=== PATIENT | female | born 1955 | race Caucasian/White ===

== ENCOUNTER 2018-10-04 15:12 | Outpatient (REF) | payer MEDICARE, SELFPAY ==
[2018-10-04 19:28] LABS: Absolute Basophil Count 0.01 k/cumm (0.0-0.2); Absolute Eosinophil Count 0.14 k/cumm (0.0-0.7); Absolute Lymphocyte Count 1.47 k/cumm (1.2-3.4); Absolute Monocyte Count 0.52 k/cumm (0.11-0.7); Absolute Neutrophil Count 3.76 k/cumm (1.2-6.7); Basophils % 0.2; Eosinophils % 2.4; HCT 37.1 % (36.0-46.0); HGB 11.5 g/dL (12.0-15.5); Lymphocytes % 24.9; Mean Corpuscular Volume 83.7 fL (80-95); Monocytes % 8.8; Neutrophils % 63.7; Platelet Count 324 x1000/uL (130-400); RBC 4.43 m/cumm (4.00-5.20)
[2018-10-04 19:36] LABS: ALT 80 U/L (12-78); AST 56 U/L (15-37); Albumin 3.7 g/dL (3.4-5.0); Alkaline Phosphatase 119 U/L (46-116); Anion Gap 11.2 mmol/L (3-11); BUN 12 mg/dL (7-18); Bilirubin, Total 0.3 mg/dL (0.2-1.0); CO2 25.8 mmol/L (21.0-32.0); Calcium 8.7 mg/dL (8.5-10.1); Chloride 104 mmol/L (98-107); Glucose 101 mg/dL (70-100); Potassium 4.2 mmol/L (3.5-5.1); Sodium 141 mmol/L (136-145); Total Protein 7.2 g/dL (6.4-8.2)
== END 2018-10-04 15:32 ==
LOC: NCHCN 15:12
PROVIDERS: PCP Physician Assistant Medical; Visit Provider Physician Assistant Medical
DX: R06.00 Dyspnea, unspecified (principal)
CPT/HCPCS: 80053; 83036; 85025

== ENCOUNTER 2018-10-09 00:20 | Outpatient (CLI) | payer MEDICARE, MEDICAID, SELFPAY ==
--- NOTE | 2018-10-09 09:30 | MERGEMPI_ITS ---
*[facility]* *[facility]* [address] [place] [address] Myocardial Perfusion Imaging - SPECT Mega protocol Date of study: 10/09/2018 (Report amended ) *PATIENT PRESENTATION* Height: 162.6cm (64in) Blood Pressure: Weight: 112.7kg (248lb) BSA: 2.32m^2 Referring physician: Marek Cameron Ordering physician: Natty Wilson Impressions: - No evidence for myocardial ischemia. - Low risk of cardiac events. Summary: 1. Myocardial perfusion imaging: There is a moderate sized, mildly intense, fixed defect involving the anterolateral wall(s). This suggests artifact due to breast attenuation rather than myocardial infarction, especially in light of normal wall motion. 2. The calculated left ventricular ejection fraction after stress: 53%. LV global systolic function is normal. No left ventricular regional motion abnormality. 3. Stress ECG conclusions: The stress ECG is negative to less than 85% MPHR. The stress ECG is indeterminate due to Inadequate heart rate. 4. Imaging information: gated. Image quality reduced due to breast attenuation and subdiaphragmatic activity. Attenuation correction used. Recommendations: Medical management is recommended. Indication: R06.02, Appropriate Use Criteria: A (Appropriate). History: REASON FOR TESTING: SHORT OF BREATH WITH ACTIVITY FOR APPROX. 1 -2 MONTHS. PMH: OSTEOARTHRITIS WITH TKR, HYPERTENSION,GERD, HIATAL HERNIA, SLEEP APNEA WITH CPAP USE, FAMILY HX: BROTHER- OF [place] AT AGE 48, MOTHER-[place] AT AGE 55 WITH HYPERTENSION, AND HYPERLIPIDEMIA. SMOKING: NEVER SMOKER. EXCERCISE: WORKING WITH WEIGHTS, TREADMILL FOR 1 HR, 2X/WEEK. Risk factors: Family history of coronary artery disease. Hypertension. Obesity. Cholesterol: 155mg/dl. HDL: 55mg/dl. LDL: 93mg/dl. Triglycerides: 73mg/dl. ALLERGIES: LISINOPRIL, SULFA, MEDICATIONS: OMEPRAZOLE 40 MG DAILY, METOPROLOL SUCCINATE 25 MG DAILY, CALCIUM 500 WITH D 1 DAILY, ASPIRIN 81 MG DAILY, AMLODIPINE 5 MG DAILY. Imaging Technique: Protocol: Mega protocol. Acquisition: Gated SPECT; 1 day - rest/stress. The patient was imaged in the supine position. Attenuation correction used. Isotope administration: - Rest. Tc[99m]-sestamibi. Dose: 10mCi. Injection time: 10:00 AM. Injection to stress time: 00:45. - Stress. Tc[99m]-sestamibi. Dose: 31mCi. Injection time: 12:00 PM. 1-2 min before end of exercise Baseline ECG: NO PREVIOUS EKG FOR COMPARISON. TODAY'S EKG-SINUS RHYTHM, HR 81. Normal sinus rhythm. Stress protocol: + +---+ + + !Stage !HR !BP (mmHg) !Comments ! + +---+ + + !Baseline supine !81 !122/78 (93)! ! + +---+ + + !Baseline standing !94 !128/68 (88)! ! + +---+ + + !Stage I; 1.7mph, 10degrees; 3 min!120!162/64 (97)! ! + +---+ + + !Baseline !81 !122/78 (93)! ! + +---+ + + !1 min !103!162/64 (97)!Inject Regadenoson.! + +---+ + + !3 min !103!142/72 (95)! ! + +---+ + + !6 min !99 !138/68 (91)! ! + +---+ + + * Stress results: The rate-pressure product for the peak heart rate and blood pressure was 15037py Hg/min. Stress ECG: EXCERCISE TESTING ENDED IN 3 MINS, 23 SECS DUE TO BODY HABITUS- UNABLE TO GET DECENT EKG TRACING DESPITE TROUBLE SHOOTING LEADS AND PLACEMENT. MAX HR WAS 126, WITH A NORMAL BLOOD PRESSURE RESPONSE. METS: 4.64 NO ECTOPY, OR ANGINA. UNABLE TO SEE ST CHANGES, TRANSITIONED TO LEXISCAN PROTOCOL. FUNCTIONAL CAPACITY UNABLE TO BE TESTED. MEDICATION TESTING ENDED IN 6 MINS EFFECT OF MEDICATION NO LONGER PRESENT. MAX HR WAS 108, WITH A HYPERTENSIVE BLOOD PRESSURE RESPONSE. ECTOPY: RARE PVC NOTED. ANGINA: NO REPORTED CHEST PAIN OR PRESSURE. ISCHEMIA: NO ISCHEMIC CHANGES NOTED. The stress ECG is negative to less than 85% MPHR. The stress ECG is indeterminate due to Inadequate heart rate. Myocardial perfusion: Imaging information: gated. Image quality reduced due to breast attenuation and subdiaphragmatic activity. Left ventricular size is normal. There is a moderate sized, mildly intense, fixed defect involving the anterolateral wall(s). This suggests artifact due to breast attenuation rather than myocardial infarction. Ventricular Function (Wall Motion): The calculated left ventricular ejection fraction after stress: 53%. LV global systolic function is normal. No left ventricular regional motion abnormality. Study data: Marek Cameron MD supervised and was readily available during the procedure. This study was interpreted by [facility]. Study status: Routine. Consent: The risks, benefits, and alternatives to the procedure were explained to the patient and informed consent was obtained. Procedure: Initial setup. A baseline ECG was recorded. Surface ECG leads and manual cuff blood pressure measurements were monitored. Heart sounds: Normal. Lung sounds: Normal. Treadmill exercise testing was performed using the Mega protocol. Study completion: All catheters inserted during the procedure were removed. The patient tolerated the procedure well and was discharged from the lab. Discharge: The patient left the laboratory in stable condition. Birthdate: Patient birthdate: 1955. Sex: Gender: female. Study date: Study date: 10/09/2018. Study time: 12:30 PM. Signature Documentation: - The imaging portion of this study was interpreted by Nuclear Special Ed Assistant Marek Cameron MD. - The imaging portion of this study was interpreted by Nuclear Radiologist Salazar Goode MD. - The Stress ECG portion of this study was interpreted by Marek Cameron MD. Electronically signed by Marek Cameron 10/09/2018 15:52
[2018-10-09] MEDS: Regadenoson 0.4 MG/5 ML SYR IVP (12:21)
== END 2018-10-09 00:40 ==
PROVIDERS: PCP Physician Assistant Medical; Visit Provider Physician Assistant Medical
DX: R06.00 Dyspnea, unspecified (principal); I10 Essential (primary) hypertension; Z82.41 Family history of sudden cardiac death
CPT/HCPCS: 78452; 93016; 93018; 93017; J2785

== ENCOUNTER 2018-12-02 10:32 | Outpatient (CLI) | payer MEDICARE, MEDICAID, SELFPAY | END 2018-12-02 10:52 | PROVIDERS: PCP Physician Assistant Medical; Visit Provider Internal Medicine Interventional Cardiology | DX: R06.02 Shortness of breath (principal); R00.2 Palpitations; R07.89 Other chest pain; K21.9 Gastro-esophageal reflux disease without esophagitis | CPT/HCPCS: 93005; 93010; 99213 ==

== ENCOUNTER 2018-12-17 01:24 | Outpatient (CLI) | payer MEDICARE, SELFPAY ==
[2018-12-17] MEDS: Barium Sulfate 60% W/V 355 ML BTL PO (09:48)
[2018-12-17] MEDS: Barium Sulfate 700 MG TAB PO (09:50)
--- NOTE | 2018-12-17 09:50 | DI.RAD_ITS ---
SYMPTOMS/DIAGNOSIS: DYSPHAGIA, R13.0 BARIUM SWALLOW: Fluoroscopy Time: 1 min 13 sec Routine examination was performed. Note is made of a large hiatal hernia. No ulcers, strictures, intrinsic or extrinsic masses are seen in the esophagus. No gastroesophageal reflux was noted. Note was made of some penetration of contrast above the vocal cords but no evidence of aspiration was seen during the examination. A swallowed barium tablet passed without difficulty. IMPRESSION: 1. Large hiatal hernia. 2. Penetration without evidence of aspiration. 3. No gastroesophageal reflux or stricture.
== END 2018-12-17 01:44 ==
PROVIDERS: PCP Physician Assistant Medical; Visit Provider Physician Assistant Medical
DX: R13.0 Aphagia (principal); K44.9 Diaphragmatic hernia without obstruction or gangrene
CPT/HCPCS: 74220; J3490

== ENCOUNTER 2019-07-03 11:47 | Emergency (ER) | payer MEDICARE, SELFPAY ==
[2019-07-03] VITALS (22 sets, daily range): BP systolic 144–187; BP diastolic 50–97; PULSE 56–85; RESP 15–25; TEMP 36.4; O2SAT 95–99
--- NOTE | 2019-07-03 12:05 | DI.CT_ITS ---
SYMPTOM/DIAGNOSIS: DIZZINESS, HEADACHE CRANIAL CT (WITHOUT CONTRAST): A noncontrast cranial CT was performed. The ventricular system is normal in appearance. There is no evidence of an intracranial mass lesion. There is no evidence of a subdural or epidural hematoma. No focal areas of decreased attenuation are seen. CONCLUSION: Normal noncontrast Cranial CT.
--- NOTE | 2019-07-03 12:06 | ED.GENADUL_ITS ---
Discharge Plan Disposition Patient Disposition: HOME Condition: Improving Discharge Details Chief Complaint: Dizzy/Sync Clinical Impression: Acute labyrinthitis Primary Care Provider: Natty Wilson ED Provider: Salazar Pierson Home Meds and New Rx's Prescriptions: New meclizine 25 mg tablet 25 mg PO TID PRN (Reason: dizziness) Qty: 20 RF: 0 Continued pantoprazole 40 mg tablet,delayed release (DR/EC) 20 mg PO DAILY RF: 0 amlodipine 5 MG tablet 5 mg PO DAILY RF: 0 calcium carbonate-vitamin D3 [Calcium 500 With D] 1 EACH tablet 1 ea PO DAILY RF: 0 metoprolol succinate 25 MG tablet extended release 24 hr 25 mg PO DAILY Qty: 30 RF: 3 aspirin 81 MG tablet,chewable 81 mg PO DAILY RF: 0 Discharge Instructions Instructions: Benign Paroxysmal Positional Vertigo (ED), Dizziness (ED) Additional Instructions: See enclosed instructions for the Parikh & Daroff exercises for vertigo May use meclizine as needed, as prescribed for persistent symptoms. Sleep with head of the bed elevated 2-3 pillows for the next 2-3 nights. Return if you develop a fever, worsening symptoms, or any other acute concerns Medical Decision Making 63-year-old female reports mild, dull and achy headache over weeks time that has now been associated with a mild sensation of dizziness is worse with movement of the head. She has a nonfocal neurologic examination. She has known hypertension & presents with a blood pressure 187/97. Differential diagnosis include intracranial hemorrhage or mass, peripheral vertigo, dehydration or electrolyte abnormality. The patient had IV access established, referred for CT scan of the head, laboratory testing, given fluid bolus and meclizine, as well as ketorolac and acetaminophen for her headache. CT scan of the head without acute intracranial findings. Her laboratories show chronic mild elevation of the LFTs with an AST of 66, ALT 88. Patient improving with meclizine. Patient given handout with Parikh & Daroff exercises for vertigo She is stable and improved, appropriate for discharge to home at this time. Lab Data Lab results reviewed: Yes I reviewed the patient's lab results. Laboratory Results - last 24 hr 07/03/19 07/03/19 12:13 12:13 WBC 6.82 RBC 5.03 Hgb 12.8 Hct 40.5 MCV 80.5 MCH 25.4 L MCHC 31.6 L RDW 15.9 H Plt Count 334 MPV 9.3 Immature Gran % 0.1 Neutrophils % 61.2 Lymphocytes % 28.6 Monocytes % 8.2 Eosinophils % 1.6 Basophils % 0.3 Absolute Neutrophils 4.17 Absolute Lymphocytes 1.95 Absolute Monocytes 0.56 Absolute Eosinophils 0.11 Absolute Basophils 0.02 Sodium 142 Potassium 4.6 Chloride 104 Carbon Dioxide 28.5 Anion Gap 9.5 BUN 13 Creatinine 0.87 Estimated GFR/1.73 m2 >= 60.00 Glucose 98 Calcium 9.2 Magnesium 1.9 Total Bilirubin 0.2 AST 66 H ALT 88 H Alkaline Phosphatase 117 H Troponin I < 0.05 Total Protein 8.2 Albumin 3.9 ECG Data Attestation: I personally reviewed and interpreted this ECG (s) as follows: Interpretation: Normal sinus rhythm with a rate of 68, the QRS is narrow, no ST segment elevation. HPI General Mode of arrival: ambulatory . Date/Time Provider Initiated Documentation: 07/03/19 11:49 . Limitations to Documentation: no limitations . Information obtained by: patient . History of Present Illness described as mild, Quality is described as constant, and is localized to the head. Patient reports no radiation. Patient started experiencing this day(s) and it has been intermittent. No relieving factors improve symptom(s), Movement worsens symptoms . Patient notes other (Dizziness with nausea, worse with movement. No fall, no difficulty with speech, gait, no change to vision. No focal weakness per). Patient did receive the following treatments prior to arrival, none Related Data Home Medications Medication Instructions Recorded Confirmed amlodipine 5 mg PO DAILY tab-cap NS 01/05/14 07/03/19 calcium carbonate-vitamin D3 1 ea PO DAILY NS 01/05/14 07/03/19 [Calcium 500 With D] metoprolol succinate 25 mg PO DAILY #30 tab-cap 10/09/16 07/03/19 aspirin 81 mg PO DAILY tab-cap 09/07/17 07/03/19 pantoprazole 40 mg tablet,delayed 20 mg PO DAILY 12/02/18 07/03/19 release meclizine 25 mg PO TID PRN #20 tab 07/03/19 Previous Rx's Medication Instructions Recorded meclizine 25 mg PO TID PRN #20 tab 07/03/19 Allergies Allergy/AdvReac Type Severity Reaction Status Date / Time lisinopril Allergy Intermediate Wheezing Unverified 12/02/18 12:22 Sulfa (Sulfonamide Allergy Intermediate Hives, rash Unverified 12/02/18 12:22 Antibiotics) General Stated Complaint: Dizzy/Sync HARI: 3 Review of Systems Review of Systems See HPI. 8 systems reviewed and otherwise neg PFSH Medical History Cervical lymphadenopathy Fatty liver disease, nonalcoholic Fibroid uterus GERD (gastroesophageal reflux disease) Hiatal hernia History of total knee arthroplasty Hypertension Obesity Osteoarthritis Surgical History Appendectomy Biopsy, Lymph Node (11/07/17) Colonoscopy - MAC Ligation of fallopian tube Replacement of total knee joint Social History Smoking/Tobacco Use Status: Never Alcohol Intake: current Alcohol Intake frequency: a few times a week Drug use: Never Substance use type: does not use Do you feel safe at home: Yes Do you feel safe in your relationship?: Yes Exam Narrative Exam Narrative: GEN: awake, alert, oriented 3. Pleasant, well groomed, interactive. HEAD: Normocephalic, atraumatic ENT: Mucous membranes moist, oropharynx unremarkable, External ear exam unremarkable EYES: PERRL, EOMI NECK: Full ROM, no KYLE, no menigismus CHEST/RESP: Nontender, clear to auscultation bilateral, no wheeze/rhonchi/rales CARDIOVASCULAR: RRR, no murmur, rub jeanne. 2+ Rad pulse bilateral ABDOMEN: Soft, nontender, no mass. +Bowel sounds EXT: Full ROM, no edema, no rash Neuro: Grossly normal neurologic exam, conversant, interactive. Cranial nerves II through XII intact. There is right horizontal nystagmus on exam. [id number] intact. Motor intact in bilateral upper and lower extremity rated 5 out of 5. No satelliteing Psych: Speech fluent, thoughts congruent, affect normal Course Vital Signs Temperature 36.4 C L 07/03/19 11:50 Pulse 82 07/03/19 11:50 Respiratory Rate 16 07/03/19 11:50 Blood Pressure 187/97 H 07/03/19 11:50 Pulse Oximetry 98 07/03/19 11:50 Temperature 36.4 C L 07/03/19 11:50 Temperature Source Skin 07/03/19 11:50 Pulse 82 07/03/19 11:50 Respiratory Rate 16 07/03/19 11:50 Blood Pressure 187/97 H 07/03/19 11:50 Blood Pressure Position Sitting 07/03/19 11:50 Pulse Oximetry 98 07/03/19 11:50 Oxygen Delivery Method Room Air 07/03/19 11:50 Oxygen Flow Rate 0 07/03/19 11:50
[2019-07-03] MEDS: Meclizine 25 MG TAB PO (12:19)
[2019-07-03] MEDS: Normal Saline 1,000 ML 150 ML IV (12:19)
[2019-07-03 12:29] LABS: Abs Immature Grans 0.01 k/cumm (0.0-0.09); Absolute Basophil Count 0.02 k/cumm (0.0-0.2); Absolute Eosinophil Count 0.11 k/cumm (0.0-0.7); Absolute Lymphocyte Count 1.95 k/cumm (1.2-3.4); Absolute Monocyte Count 0.56 k/cumm (0.11-0.7); Absolute Neutrophil Count 4.17 k/cumm (1.2-6.7); Basophils % 0.3; Eosinophils % 1.6; HCT 40.5 % (36.0-46.0); HGB 12.8 g/dL (12.0-15.5); Immature Grans % 0.1; Lymphocytes % 28.6; Mean Corp. HGB Concentration 31.6 g/dL (32.0-36.0); Mean Corpuscular Hemoglobin 25.4 pg (27.0-33.0); Mean Corpuscular Volume 80.5 fL (80-95); Mean Platelet Volume 9.3 fL (8.0-11.0); Monocytes % 8.2; Neutrophils % 61.2; Platelet Count 334 x1000/uL (130-400); RBC 5.03 m/cumm (4.00-5.20); RBC Distribution Width 15.9 % (11.7-14.6); White Blood Cell Count 6.82 k/cumm (4.4-10.8)
[2019-07-03 12:35] LABS: ALT 88 U/L (12-78); AST 66 U/L (15-37); Albumin 3.9 g/dL (3.4-5.0); Alkaline Phosphatase 117 U/L (46-116); Anion Gap 9.5 mmol/L (3-11); BUN 13 mg/dL (7-18); Bilirubin, Total 0.2 mg/dL (0.2-1.0); CO2 28.5 mmol/L (21.0-32.0); CREATININE 0.87 mg/dL (0.55-1.02); Calcium 9.2 mg/dL (8.5-10.1); Chloride 104 mmol/L (98-107); Glucose 98 mg/dL (70-100); Magnesium 1.9 mg/dL (1.8-2.4); Potassium 4.6 mmol/L (3.5-5.1); Sodium 142 mmol/L (136-145); Total Protein 8.2 g/dL (6.4-8.2)
[2019-07-03 12:38] LABS: Troponin I < 0.05 ng/mL (0.00-0.06)
[2019-07-03] MEDS: Ketorolac 15 MG/ML VIAL IVP (12:49)
[2019-07-03] MEDS: Acetaminophen 500 MG TAB 1000 MG PO (13:05)
[2019-07-03] MEDS: Normal Saline 250 ML 500 ML IV (13:28)
== END 2019-07-03 14:34 | disposition home or self-care (01) ==
PROVIDERS: Emergency Provider Emergency Medicine; PCP Physician Assistant Medical
DX: R51 Headache (principal); H83.09 Labyrinthitis, unspecified ear; I10 Essential (primary) hypertension
CPT/HCPCS: 36415; 80053; 93005; 96361; 96374; 99285; 70450; 83735; 84484; 85025; 93010; 99284; J1885

== ENCOUNTER 2019-12-12 01:47 | Outpatient (CLI) | payer MEDICARE, SELFPAY ==
--- NOTE | 2019-12-12 15:46 | DI.MAMMO_ITS ---
EXAM: MG MAMMO SCREENING CLINICAL HISTORY: SCREENING, [facility] Z00.00. TECHNIQUE: Full field digital CC and MLO mammographic images were obtained with 3D tomosynthesis and utilizing computer aided detection (CAD). COMPARISON: . 2009 to 2017 FINDINGS: Breast Density - Category A - Almost entirely fatty Masses/Architectural Distortion: None seen. Microcalcifications: No suspicious pleomorphic-type calcifications are seen. Skin Thickening/Nipple Retraction: None. Axilla: Unremarkable. IMPRESSION: 1. BI-RADS category 1, negative. No significant interval change with no specific features of maligna ncy noted. 2. Unless there is more urgent need, screening mammography is recommended, as per [place] guidelines. A negative radiographic report should not delay biopsy if a dominant or clinically suspicious mass is present. Up to ten percent of cancers are not identified on mammography. A negative report may reinforce clinical impression. Adenosis and dense breasts may obscure an underlying neoplasm. False positive reports average 6 to 10%. Patient will receive a letter notifying them of these results.
== END 2019-12-12 02:07 ==
PROVIDERS: PCP Physician Assistant Medical; Visit Provider Physician Assistant Medical
DX: Z12.31 Encounter for screening mammogram for malignant neoplasm of breast (principal)
CPT/HCPCS: 77063; 77067

== ENCOUNTER 2020-04-21 22:11 | Outpatient (REF) | payer MEDICARE, SELFPAY ==
[2020-04-21 20:36] LABS: ALT 34 U/L (14-59); AST 24 U/L (15-37); Albumin 3.9 g/dL (3.4-5.0); Alkaline Phosphatase 98 U/L (46-116); Anion Gap 5.7 mmol/L (3-11); BUN 18 mg/dL (7-18); Bilirubin, Total 0.4 mg/dL (0.2-1.0); CO2 29.3 mmol/L (21.0-32.0); CREATININE 0.86 mg/dL (0.55-1.02); Calculated LDL 85 mg/dL (<100); Chloride 104 mmol/L (98-107); Cholesterol 151 mg/dL (<200); Glucose 90 mg/dL (74-106); HDL Cholesterol 50 mg/dL (40-60); Potassium 4.6 mmol/L (3.5-5.1); Sodium 139 mmol/L (136-145); Total Protein 7.4 g/dL (6.4-8.2); Triglyceride 80 mg/dL (<150)
[2020-04-22 15:14] LABS: Hemoglobin A1C 6.1 % (3.8-5.6)
== END 2020-04-21 22:31 ==
LOC: NCHCN 22:11
PROVIDERS: PCP Physician Assistant Medical; Visit Provider Physician Assistant Medical
DX: I10 Essential (primary) hypertension (principal); R73.03 Prediabetes
CPT/HCPCS: 80053; 80061; 83036

== ENCOUNTER 2020-09-02 16:55 | Outpatient (REF) | payer MEDICARE, SELFPAY ==
[2020-09-06 07:24] LABS: Patient Race White; SARS-CoV-2 RNA Undetected (Undetected); SARS-CoV-2 Specimen Source Nasopharynx
== END 2020-09-02 17:15 ==
LOC: NCHCN 16:55
PROVIDERS: PCP Physician Assistant Medical; Visit Provider Nurse Practitioner Family
DX: R05 Cough (principal)
CPT/HCPCS: U0003

== ENCOUNTER 2021-01-20 01:57 | Outpatient (CLI) | payer MEDICARE, SELFPAY ==
--- NOTE | 2021-01-20 11:35 | DI.RAD_ITS ---
EXAM: XR SHOULDER LT COMPLETE 2+V CLINICAL HISTORY: LT SHOULDER PAIN, M25.512. TECHNIQUE: 2D digital imaging was performed. COMPARISON: CR,RF RF barium swallow from 12/17/2018 FINDINGS: There is no evidence of fracture nor dislocation nor calcifications subacromial space. Subacromial s pace height is not diminished but there are degenerative cysts noted in the lateral aspect of the hum eral head. Mild degenerative changes are noted in the AC joint. Clavicle appears intact. No osteop hytes evident. IMPRESSION: DATA REPOSITORY: RADIATION DOSE DELIVERED:
== END 2021-01-20 01:58 ==
LOC: DI 01:58
PROVIDERS: PCP Physician Assistant Medical; Visit Provider Physician Assistant Medical
DX: M25.512 Pain in left shoulder (principal)
CPT/HCPCS: 73030

== ENCOUNTER 2021-03-08 18:18 | Outpatient (REF) | payer MEDICARE, SELFPAY ==
[2021-03-08 18:34] LABS: Abs Immature Grans 0.02 10^3/uL (0.0-0.06); Absolute Basophil Count 0.01 10^3/uL (0.0-0.2); Absolute Eosinophil Count 0.05 10^3/uL (0.0-0.7); Absolute Lymphocyte Count 1.29 10^3/uL (1.2-3.4); Absolute Monocyte Count 0.59 10^3/uL (0.1-0.8); Absolute Neutrophil Count 5.39 10^3/uL (1.2-6.7); Basophils % 0.1; Eosinophils % 0.7; HGB 11.9 g/dL (11.2-15.7); Immature Grans % 0.3; Lymphocytes % 17.6; MCH 26.9 pg (27.0-33.0); MCHC 31.3 % (32.0-36.0); MCV 85.8 fL (80-95); MPV 9.9 fL (8.0-11.0); Neutrophils % 73.3; Nucleated RBC 0 %; Platelet Count 283 10^3/uL (130-400); RBC 4.43 10^6/uL (3.93-5.22); RDW 14.3 % (11.7-14.6); RDW-SD 45.1 fL; WBC 7.35 10^3/uL (4.4-10.8)
[2021-03-08 18:49] LABS: ALT 26 U/L (14-59); AST 18 U/L (15-37); Albumin 3.6 g/dL (3.4-5.0); Alkaline Phosphatase 94 U/L (46-116); Anion Gap 8.6 mmol/L (3-11); BUN 12 mg/dL (7-18); Bilirubin, Total 0.5 mg/dL (0.2-1.0); CO2 27.4 mmol/L (21.0-32.0); Calcium 8.4 mg/dL (8.5-10.1); Chloride 105 mmol/L (98-107); Glucose 85 mg/dL (74-106); Potassium 4.4 mmol/L (3.5-5.1); Sodium 141 mmol/L (136-145); Total Protein 7.1 g/dL (6.4-8.2)
[2021-03-08 18:58] LABS: Amylase 15 U/L (25-115); Lipase 30 U/L (73-393)
[2021-03-10 10:07] LABS: COVID-19 RT-PCR UVMMC Result Negative (Negative)
== END 2021-03-08 18:19 | disposition home or self-care (01) ==
LOC: NCHCN 18:18
PROVIDERS: PCP Physician Assistant Medical; Visit Provider Physician Assistant Medical
DX: R10.13 Epigastric pain (principal); Z20.822 Contact with and (suspected) exposure to COVID-19
CPT/HCPCS: 80053; 83690; U0003; U0005; 82150; 85025

== ENCOUNTER 2021-06-10 10:36 | Emergency (ER) | payer OTHER, SELFPAY ==
[2021-06-10] VITALS (48 sets, daily range): BP systolic 126–163; BP diastolic 66–82; PULSE 68–93; RESP 14–24; TEMP 36.6; O2SAT 96–100
--- NOTE | 2021-06-10 10:30 | RT.EKG_ITS ---
APPROVED REPORT Exam: Resting ECG Reason for Exam: chest pain Patient Location: E HR:86 bpm ECG Measurements Heart Rate 86 AXIS GA 183 P 32 QRSd 79 QRS 11 QT 355 T 33 QTc 413 Conclusion Sinus rhythm...normal P axis, V-rate 60- 99 Ventricular premature complex...V complex w/ short R-R interval. No STEMI. PVC. I have reviewed and interpreted ECG and agree with software generated interpretation.
--- NOTE | 2021-06-10 10:55 | W.ED.GENAD ---
Discharge Plan Disposition Patient Disposition: HOME Condition: Improving Discharge Details Clinical Impression: Chest wall pain, Back pain Primary Care Provider: Natty Wilson ED Provider: Shobha Coleman Home Meds and New Rx's Prescriptions: New sucralfate [Carafate] 1 gram tablet 1 gm PO QACHS Qty: 14 RF: 0 Continued pantoprazole 40 mg tablet,delayed release (DR/EC) 40 mg PO DAILY RF: 0 amlodipine 5 MG tablet 2.5 mg PO DAILY RF: 0 metoprolol succinate 25 MG tablet extended release 24 hr 25 mg PO DAILY Qty: 30 RF: 3 aspirin 81 MG tablet,chewable 81 mg PO DAILY RF: 0 triamcinolone acetonide 0.1 % cream 1 applic TOPICAL BID RF: 0 Caltrate 600 plus D 600 mg (1,500 mg)-800 unit Tablet,Chewable 1 tab PO DAILY RF: 0 Discharge Instructions Instructions: Back Pain (ED), Chest Wall Pain (ED) Additional Instructions: Drink plenty of fluids and get plenty of rest. Your prescription has been sent electronically to your pharmacy. Call the pharmacy to make sure your prescription is ready before pickup. Take the prescription as directed. Follow-up with your scheduled appointment with your primary care doctor on Sunday for reevaluation and for referral for outpatient stress test if your symptoms do not improve or worsen. Return immediately to the emergency department if you develop any worsening or new concerning symptoms. Discharge Data Discharge Date/Time-TO BE ENTERED AT DEPARTURE: 06/10/21 15:29 Discharge Physician: Shobha Coleman Medical Decision Making 65-year-old female with a history of GERD, hypertension, obesity presents for left-sided chest and back pain since last night that started while sitting at home. Pain worse with movement and when laying flat at times. EKG notes a rate of 86, sinus, no STEMI, nondiagnostic. Patient has reproducible left anterior superior chest pain. There is no evidence of rash or trauma. Lungs clear. Differential diagnosis includes GERD, PUD, costochondritis, chest wall strain, ACS, etc. History and presentation does not appear consistent with PE or dissection. Considering patient's age and complaints, will obtain screening labs, CT chest. Will give a dose of Toradol and Pepcid and reassess. Labs and imaging reviewed and unremarkable. Patient reassessed and she feels better. Still with some upper back pain. Will give a GI cocktail and Carafate. Patient would prefer to go home. Will obtain a 3 hr troponin and EKG. Repeat troponin negative. Repeat EKG unchanged. Review of records noted that patient had an MPI stress in 2017 which was negative for myocardial ischemia and noted a moderate sized fixed defect with ejection fraction of 53% and normal global systolic function.\ Patient reassessed and she continues to feel better and feels good to go home. Heart score of 3. Patient has a follow-up appointment with her primary care doctor on Sunday. She is advised to discuss with her that if her symptoms persist or worsen, to be referred for outpatient MPI stress test. It was also discussed that an outpatient upper endoscopy may be indicated. A prescription for Carafate sent electronically to her pharmacy. Usual and customary return precautions given prior to discharge. Medical Records Medical records reviewed: Yes I reviewed the patient's medical records. Imaging Data Radiologic Study: Radiologist's impression: CT THORAX CTA CLINICAL HISTORY: chest and back pain. TECHNIQUE: Imaging Protocol: Axial CT angiography was performed with multi-slice acquisition and multi-planar and/or 3D reconstructions. CONTRAST MATERIAL: Intravenous: Omnipaque 350 Contrast volume:structured data in ml COMPARISON: CT ABD PELVIS WITH CONTRAST from 05/28/2013 CT ABD PELVIS WITH CONTRAST from 05/28/2013 CR CHEST 2 VIEWS PA,LAT from 08/15/2017 CR,RF RF barium swallow from 12/17/2018 CR,RF RF barium swallow from 12/17/2018 CR XR SHOULDER LT COMPLETE 2+V from 01/20/2021 FINDINGS: Pulmonary Arteries: Pulmonary arteries suboptimally opacified. No evidence of filling defect to suggest pulmonary emboli. Tracheobronchial tree: Patent where visualized. Mediastinum and Angelica: Large hiatal hernia. No evidence of obstruction. No dominant adenopathy or fluid collection. Pulmonary parenchyma: No consolidation or dominant measurable mass. No pneumothorax. Tiny bleb right lower lobe, stable since 2012. Pleura: No effusion or pneumothorax. Heart: Mild enlargement of the left atrium andleft ventricle. Aorta: Motion at the aortic root. Thoracic aorta non-dilated. Minimal calcification. No evidence of dissection. Upper abdomen: Fatty replacement of the pancreas. Cyst upper pole right kidney. Bones: Degenerative disc changes. No rib or spine fractures seen. IMPRESSION: No acute abnormality. No evidence of aortic dissection or pulmonary embolism. Large hiatal hernia. Lab Data Lab results reviewed: Yes I reviewed the patient's lab results. Labs: Laboratory Tests Range/Units 06/10/21 06/10/21 06/10/21 10:50 10:50 14:18 WBC (4.4-10.8) 10^3/uL 7.18 RBC (3.93-5.22) 10^6/uL 4.72 Hgb (11.2-15.7) g/dL 12.8 Hct (36.0-46.0) % 40.6 MCV (80-95) fL 86.0 MCH (27.0-33.0) pg 27.1 MCHC (32.0-36.0) % 31.5 L RDW (11.7-14.6) % 14.2 Plt Count (130-400) 10^3/uL 297 MPV (8.0-11.0) fL 9.8 Immature Gran % 0.3 Neutrophils % 62.0 Lymphocytes % 28.4 Monocytes % 7.9 Eosinophils % 1.1 Basophils % 0.3 Nucleated RBC % % 0 Absolute Neutrophils (1.2-6.7) 10^3/uL 4.45 Absolute Lymphocytes (1.2-3.4) 10^3/uL 2.04 Absolute Monocytes (0.1-0.8) 10^3/uL 0.57 Absolute Eosinophils (0.0-0.7) 10^3/uL 0.08 Absolute Basophils (0.0-0.2) 10^3/uL 0.02 Sodium (136-145) mmol/L 141 Potassium (3.5-5.1) mmol/L 4.7 Chloride (98-107) mmol/L 104 Carbon Dioxide (21.0-32.0) mmol/L 27.9 Anion Gap (3-11) mmol/L 9.1 BUN (7-18) mg/dL 15 Creatinine (0.55-1.02) mg/dL 0.9 Estimated GFR/1.73 m2 (mL/min/1.73m2) >= 60.00 Glucose (74-106) mg/dL 109 H Calcium (8.5-10.1) mg/dL 9.1 Magnesium (1.8-2.4) mg/dL 2.0 Total Bilirubin (0.2-1.0) mg/dL 0.5 AST (15-37) U/L 27 ALT (14-59) U/L 43 Alkaline Phosphatase (46-116) U/L 103 Troponin I (<0.06) ng/mL < 0.05 < 0.05 Total Protein (6.4-8.2) g/dL 7.7 Albumin (3.4-5.0) g/dL 3.9 ECG Data Attestation: I personally reviewed and interpreted this ECG (s) as follows: Interpretation: #1 --Rate of 86, sinus, PVC. No acute ST elevation or depression. ND 183. QTc 413. #2 --Rate of 69, sinus, no acute ST elevation or depression. ND 194. QTc 425. HPI General Mode of arrival: ambulatory. Date/Time Provider Initiated Documentation: 06/10/21 10:37. Limitations to Documentation: no limitations. Information obtained by: patient. HPI Narrative: Patient is a 65-year-old female with a history of GERD, hypertension, hiatal hernia, obesity presents for chest pain, shortness of breath and back pain since last night. Patient states she was sitting at home resting when the symptoms started. She describes it as an aching pain with radiation to her left shoulder. She states the pain is worse with movement and when laying flat. She denies any injury, fever, cough, nausea, vomiting, diarrhea or abdominal pain. She states she is unsure if this is related to GERD but has been taking her pantoprazole as directed. Related Data Home Medications Medication Instructions Recorded Confirmed amlodipine 2.5 mg PO DAILY tab-cap NS 01/05/14 06/10/21 metoprolol succinate 25 mg PO DAILY #30 tab-cap 10/09/16 06/10/21 aspirin 81 mg PO DAILY tab-cap 09/07/17 06/10/21 pantoprazole 40 mg tablet,delayed 40 mg PO DAILY 12/02/18 06/10/21 release Caltrate 600 plus D 1 tab PO DAILY 06/10/21 06/10/21 sucralfate [Carafate] 1 gm PO QACHS #14 tab 06/10/21 triamcinolone acetonide 1 applic TOPICAL BID 06/10/21 06/10/21 Previous Rx's Medication Instructions Recorded sucralfate [Carafate] 1 gm PO QACHS #14 tab 06/10/21 Allergies Allergy/AdvReac Type Severity Reaction Status Date / Time lisinopril Allergy Intermediate Wheezing Unverified 06/10/21 10:59 Sulfa (Sulfonamide Allergy Intermediate Hives, rash Unverified 06/10/21 10:59 Antibiotics) General Stated Complaint: Chest Pain HARI: 2 Review of Systems All systems reviewed & are unremarkable except as noted in HPI and below Constitutional Constitutional: Reports as per HPI, Denies chills and Denies fever(s) Eyes Eyes: Denies blurry vision ENT Ears, Nose, Mouth, and Throat: Denies dizziness, Denies sore throat and Denies throat swelling Cardiovascular Cardiovascular: Reports chest pain and Denies dyspnea Respiratory Respiratory: Denies cough and Denies dyspnea Gastrointestinal Gastrointestinal: Denies abdominal pain, Denies diarrhea and Denies vomiting Genitourinary Genitourinary: Denies hematuria and Denies dysuria Musculoskeletal Musculoskeletal: Denies back pain and Denies numbness Integumentary/Breasts Skin/Breast: Denies lesions and Denies rash Neurologic Neurologic: Denies dizziness, Denies localized weakness and Denies numbness Allergic/Immunologic Allergic/Immunologic: Denies throat swelling [facility] Medical History (Updated 06/10/21 @ 15:16 by Shobha Coleman DO) Cervical lymphadenopathy Fatty liver disease, nonalcoholic Fibroid uterus GERD (gastroesophageal reflux disease) Hiatal hernia History of total knee arthroplasty Hypertension Obesity Osteoarthritis Surgical History Appendectomy Biopsy, Lymph Node (11/07/17) clinically suspicious lymphocytes [place] [facility] [place] Ligation of fallopian tube Replacement of total knee joint Rt and Left Social History Smoking/Tobacco Use Status: Never Smoking risk assessment performed?: Yes Alcohol Intake: current Alcohol Intake frequency: a few times a week Drug use: Never Substance use type: does not use Do you feel safe at home: Yes Do you feel safe in your relationship?: Yes Exam Const General: cooperative, healthy appearing and no acute distress HENMT Head: normal to inspection Face and sinus: normal facial exam Eyes General: appearance normal, both eyes and all related structures EOM: EOM intact bilaterally Neck Neck: normal visual inspection and No submandibular swelling Lymphatic: no lymphadenopathy noted Chest Chest: normal inspection of the chest Chest/axillae images: 1. Tenderness to palpation to left anterior superior chest. Resp Effort & Inspection: normal respiratory effort and able to speak in complete sentences Auscultation: clear to auscultation bilaterally Cardio Rate: regular rate Rhythm: regular rhythm GI Inspection: normal to inspection Palpation: soft, not firm, not rigid and nontender Auscultation: normal bowel sounds Back/Spine/Pelvis Thoracic/Lumbar Spine: thoracic and lumbar spine normal to inspection Pelvis: no pain with anterior-posterior compression Skin General skin exam: no rashes or lesions noted Neuro General: patient alert, patient awake and patient oriented x3 Cognition: normal cognition Speech: speech normal Motor: muscle tone normal throughout Sensory Exam: no sensory deficits noted Extrem General: normal to inspection, full ROM, capillary refill normal, no calf tenderness bilaterally and no edema Psych Appearance: grossly normal Mental Status: mental status grossly normal Speech and Movement: speech and movement normal Affect: normal affect Course Vital Signs Vital signs: Vital Signs Temperature 97.9 F 06/10/21 10:51 Pulse 93 H 06/10/21 10:51 Respiratory Rate 18 06/10/21 10:51 Blood Pressure 157/82 H 06/10/21 10:51 Pulse Oximetry 98 06/10/21 10:51 Temperature 97.9 F 06/10/21 10:51 Pulse 93 H 06/10/21 10:51 Respiratory Rate 18 06/10/21 10:51 Blood Pressure 157/82 H 06/10/21 10:51 Blood Pressure Position Supine 06/10/21 10:51 Pulse Oximetry 98 06/10/21 10:51 Oxygen Delivery Method Room Air 06/10/21 10:51 Oxygen Flow Rate 0 06/10/21 10:51 Pain Level 4 06/10/21 10:51
--- NOTE | 2021-06-10 11:00 | DI.CT_ITS ---
Exam(s) CT THORAX CTA EXAM: CT THORAX CTA CLINICAL HISTORY: chest and back pain. TECHNIQUE: Imaging Protocol: Axial CT angiography was performed with multi-slice acquisition and mu lti-planar and/or 3D reconstructions. CONTRAST MATERIAL: Intravenous: Omnipaque 350 Contrast volume:structured data in ml COMPARISON: CT ABD PELVIS WITH CONTRAST from 05/28/2013 CT ABD PELVIS WITH CONTRAST from 05/28/2013 CR CHEST 2 VIEWS PA,LAT from 08/15/2017 CR,RF RF barium swallow from 12/17/2018 CR,RF RF barium swallow from 12/17/2018 CR XR SHOULDER LT COMPLETE 2+V from 01/20/2021 FINDINGS: Pulmonary Arteries: Pulmonary arteries suboptimally opacified. No evidence of filling defect to sugg est pulmonary emboli. Tracheobronchial tree: Patent where visualized. Mediastinum and Angelica: Large hiatal hernia. No evidence of obstruction. No dominant adenopathy or fl uid collection. Pulmonary parenchyma: No consolidation or dominant measurable mass. No pneumothorax. Tiny bleb right lower lobe, stable since 2012. Pleura: No effusion or pneumothorax. Heart: Mild enlargement of the left atrium andleft ventricle. Aorta: Motion at the aortic root. Thoracic aorta non-dilated. Minimal calcification. No evidence o f dissection. Upper abdomen: Fatty replacement of the pancreas. Cyst upper pole right kidney. Bones: Degenerative disc changes. No rib or spine fractures seen. IMPRESSION: No acute abnormality. No evidence of aortic dissection or pulmonary embolism. Large hiatal hernia. RADIATION DOSE DELIVERED: 451.9mGy.cm Total DLP DATA REPOSITORY: All CT scans at this facility are submitted to the National Radiology Data Registry (NRDR) Dose Index Registry (DIR) with the [employer] (ACR). RADIATION OPTIMIZATION: All CT scans at this facility use at least one of these dose optimization te chniques: automated exposure control; mA and/or kV adjustment per patient size (includes targeted exa ms where dose is matched to clinical indication); or iterative reconstruction.
[2021-06-10 11:09] LABS: Abs Immature Grans 0.02 10^3/uL (0.0-0.06); Absolute Basophil Count 0.02 10^3/uL (0.0-0.2); Absolute Eosinophil Count 0.08 10^3/uL (0.0-0.7); Absolute Lymphocyte Count 2.04 10^3/uL (1.2-3.4); Absolute Monocyte Count 0.57 10^3/uL (0.1-0.8); Absolute Neutrophil Count 4.45 10^3/uL (1.2-6.7); Basophils % 0.3; Eosinophils % 1.1; HCT 40.6 % (36.0-46.0); HGB 12.8 g/dL (11.2-15.7); Immature Grans % 0.3; Lymphocytes % 28.4; MCH 27.1 pg (27.0-33.0); MCHC 31.5 % (32.0-36.0); MPV 9.8 fL (8.0-11.0); Monocytes % 7.9; Nucleated RBC 0 %; Platelet Count 297 10^3/uL (130-400); RBC 4.72 10^6/uL (3.93-5.22); RDW 14.2 % (11.7-14.6); RDW-SD 45.1 fL; WBC 7.18 10^3/uL (4.4-10.8)
[2021-06-10] MEDS: FAMOTIDINE 20 MG/50 ML BAG 200 MG IVPB (11:27)
[2021-06-10] MEDS: Ketorolac 30 MG/ML VIAL IVP (11:27)
[2021-06-10] MEDS: Normal Saline 1,000 ML 1000 ML IV (11:27)
[2021-06-10 11:45] LABS: ALT 43 U/L (14-59); AST 27 U/L (15-37); Albumin 3.9 g/dL (3.4-5.0); Alkaline Phosphatase 103 U/L (46-116); Anion Gap 9.1 mmol/L (3-11); BUN 15 mg/dL (7-18); Bilirubin, Total 0.5 mg/dL (0.2-1.0); CO2 27.9 mmol/L (21.0-32.0); CREATININE 0.9 mg/dL (0.55-1.02); Calcium 9.1 mg/dL (8.5-10.1); Chloride 104 mmol/L (98-107); Glucose 109 mg/dL (74-106); Potassium 4.7 mmol/L (3.5-5.1); Sodium 141 mmol/L (136-145); Total Protein 7.7 g/dL (6.4-8.2)
[2021-06-10 11:49] LABS: Troponin I < 0.05 ng/mL (<0.06)
[2021-06-10] MEDS: Omnipaque 350 MG/ML 100 ML BTL IJ (12:20)
--- NOTE | 2021-06-10 12:45 | RT.EKG_ITS ---
APPROVED REPORT Exam: Resting ECG Reason for Exam: chest pain Patient Location: E HR:69 bpm ECG Measurements Heart Rate 69 AXIS [place] 194 P 37 QRSd 84 QRS 19 QT 397 T 27 QTc 425 Conclusion Sinus rhythm...normal P axis, V-rate 60- 99. No STEMI. I have reviewed and interpreted ECG and agree with software generated interpretation.
[2021-06-10] MEDS: Sucralfate 1 GM TAB PO (13:00)
[2021-06-10 14:50] LABS: Troponin I < 0.05 ng/mL (<0.06)
== END 2021-06-10 15:29 | disposition home or self-care (01) ==
PROVIDERS: Emergency Provider Physician Assistant; PCP Physician Assistant Medical
DX: R07.89 Other chest pain (principal); M54.9 Dorsalgia, unspecified
CPT/HCPCS: 36415; 71275; 80053; 93005; 96361; 96365; 96375; 99285; 83735; 84484; 85025; 93010; 99284; J1885; J3490

== ENCOUNTER 2021-06-14 16:03 | Outpatient (REF) | payer OTHER, SELFPAY ==
[2021-06-14 21:04] LABS: Calculated LDL 81 mg/dL (<100); Cholesterol 141 mg/dL (<200); HDL Cholesterol 41 mg/dL (40-60); TSH (W/Ref FT4) 2.41 uIU/mL (0.36-3.74); Triglyceride 99 mg/dL (<150)
[2021-06-14 22:52] LABS: Hemoglobin A1C 6.1 % (<5.7)
== END 2021-06-14 16:04 | disposition home or self-care (01) ==
LOC: NCHCN 16:03
PROVIDERS: PCP Physician Assistant Medical; Visit Provider Physician Assistant Medical
DX: R73.03 Prediabetes (principal); I10 Essential (primary) hypertension
CPT/HCPCS: 80061; 83036; 84443

== ENCOUNTER 2021-06-23 02:54 | Outpatient (CLI) | payer OTHER, SELFPAY ==
--- NOTE | 2021-06-23 08:45 | DI.NM_ITS ---
APPROVED REPORT Exam: Exercise Treadmill Patient Location: Out-Patient Room/Bed: Stress Nurse: Halina Yuan RN Ordering Provider:OPHELIA CERVANTES, Contact Number: [phone] BMI: 42.39 Baseline Rhythm: Sinus Rhythm Comment: Frequent PACs w/ compensatory pauses, Flipped T waves lead III Indications: Chest pain Medical History Medical History: Fatty liver (non-etoh), gerd, hiatal hernia, HTN, obesity, osteoarthritis Cardiac Medications: Carafate, pantoprazole, aspirin, amlodipine, metroprolol succinate Allergies: Lisinopril, sulfa Cardiac Risk Factors: HTN, prediabetes, obesity, family hx Previous Cardiac Procedures: None Pretest Chest Pain Characteristics: None Exercise History: Sedentary Physical Disabilities: None Lung Sounds: Clear to auscultation Heart Sounds: Irregular Stress Test Details Test: Exercise stress testing was performed using a Mega protocol. Nuclear Acquisition: Rest Tc-99m/Stress Tc-99m 1 day Rest Isotope: Tc-99m Sestamibi. Dose: 12.5 Date: 06/23/2021 Injection Time: 0900 Stress Isotope: Tc-99m Sestamibi. Dose: 38.0 Date: 06/23/2021 Injection Time: 1040 HR Resting HR Supine: 78 bpm Max Heart Rate (APMHR): 153.714351 bpm Resting HR Standin bpm Target HR (85% APMHR): 130.913131 bpm Max HR Achieved: 140 bpm % of APMHR: 91.50 Recovery HR: 96 bpm HR response to stress: Normal HR response to stress Comment: Metoprolol succinate held for 24 hrs BP Resting BP Supine: 144/72 mmHg Resting BP Standin/82 mmHg Max BP: 178/84 mmHg Recovery BP: 138/72 mmHg BP response to stress: Normal blood pressure response to stress. ECG Resting ECG: Sinus Rhythm Ectopy: Frequent PACs w/ compensatory pauses, Fliipped T waves lead III Stress ECG: Sinus Tachycardia ST Change: No significant ST segment changes noted Arrhythmia: Frquent PACs Recovery ECG: Sinus Rhythm Recovery ST Change: No significant ST segment changes noted Recovery Arrhythmia: Frequent PACs, occasional PVCs Clinical Reason for Termination: Fatigue Stress Symptoms: General Fatigue, Dizziness Exercise duration: 5 min1 sec Highest Stage Reached: Stage 2: 2.5 mph at 12% grade. Exercise capacity: 7.04 METs Rate Pressure Product: [id number] Stress ECG Conclusion 1. The patient exercised for 5 minutes (7 METS). 2. The patient no symptoms suggestive of ischemia. 3. ECG portion of the exam is nondiagnostic. Stress Test Summary STAGE Time (mins) Speed (mph) Grade (%) HR BP SYMPTOMS METS Supine 78 144/72 Standing 84 164/82 SpO2 98% 1 3 1.7 10 126 170/80 SpO2 98% 4.6 2 6 2.5 12 140 SpO2 98%, fatigue, mild dizziness 7 1 min recovery 125 178/84 SpO2 98%, symptoms resolved 3 min recovery 96 170/84 6 min recovery 96 138/72 MPI Conclusion The ejection fraction was 60% with stress. There were no wall motion abnormalities. There is no evidence of ischemia on the imaging portion exam. This represents a normal SPECT stress test. Radiologist Interpretation Radiologist Interpretation by: Kenn Mcdonald MD Interpretation Date/Time: 06/24/2021 14:02:48
== END 2021-06-23 03:14 ==
PROVIDERS: PCP Physician Assistant Medical; Visit Provider Physician Assistant Medical
DX: R07.9 Chest pain, unspecified (principal); I10 Essential (primary) hypertension; E66.9 Obesity, unspecified; R73.03 Prediabetes; Z82.49 Family history of ischemic heart disease and other diseases of the circulatory system
CPT/HCPCS: 78452; 93017

== ENCOUNTER 2022-05-23 15:41 | Outpatient (REF) | payer OTHER, SELFPAY ==
[2022-05-23 16:39] LABS: ALT 43 U/L (14-59); AST 25 U/L (15-37); Albumin 3.6 g/dL (3.4-5.0); Alkaline Phosphatase 101 U/L (46-116); Anion Gap 6.9 mmol/L (3-11); BUN 13 mg/dL (7-18); Bilirubin, Total 0.4 mg/dL (0.2-1.0); CO2 28.1 mmol/L (21.0-32.0); CREATININE 0.8 mg/dL (0.55-1.02); Calcium 8.1 mg/dL (8.5-10.1); Calculated LDL 67 mg/dL (<100); Chloride 103 mmol/L (98-107); Cholesterol 141 mg/dL (<200); Glucose 114 mg/dL (74-106); HDL Cholesterol 46 mg/dL (40-60); Potassium 3.8 mmol/L (3.5-5.1); Sodium 138 mmol/L (136-145); TSH 1.93 uIU/mL (0.36-3.74); Total Protein 7.4 g/dL (6.4-8.2); Triglyceride 144 mg/dL (<150)
[2022-05-23 17:08] LABS: FREE T4 1.03 ng/dL (0.76-1.46)
[2022-05-23 23:13] LABS: T3, Total 105 ng/dL (97-169)
== END 2022-05-23 15:42 | disposition home or self-care (01) ==
LOC: NCHCN 15:41
PROVIDERS: PCP Physician Assistant Medical; Visit Provider Physician Assistant Medical
DX: R73.03 Prediabetes (principal); E04.2 Nontoxic multinodular goiter; I10 Essential (primary) hypertension
CPT/HCPCS: 80053; 80061; 83036; 84439; 84443; 84480

== ENCOUNTER → 2022-06-29 02:12 | Outpatient (CLI) | payer OTHER, SELFPAY ==
--- NOTE | 2022-06-29 14:45 | DI.RAD_ITS ---
Exam(s) XR KNEE RT 3V AP,LAT,JOSE M EXAM: XR KNEE RT 3V AP,LAT,JOSE M CLINICAL HISTORY: RT KNEE PAIN, M25.561, FALL S/P TKA. TECHNIQUE: 2D digital imaging was performed. Three views. COMPARISON: CR RIGHT KNEE LIMITED 1 OR 2 VIEW from 04/11/2017 FINDINGS: There is no evidence of fracture. There has been no change in the alignment of the total knee prosth esis or appearance of the surrounding bone. No visible joint effusion. IMPRESSION: Stable appearance of knee prosthesis. DATA REPOSITORY: RADIATION DOSE DELIVERED:
== END ==
PROVIDERS: PCP Physician Assistant Medical; Visit Provider Physician Assistant Medical
DX: M25.561 Pain in right knee (principal); Z96.651 Presence of right artificial knee joint
CPT/HCPCS: 73562

== ENCOUNTER → 2022-07-28 08:19 | Outpatient (BNVA) | payer OTHER, SELFPAY | PROVIDERS: PCP Physician Assistant Medical; Referring Provider Physician Assistant Medical; Visit Provider Student in an Organized Health Care Education/Training Program | DX: X58.XXXA Exposure to other specified factors, initial encounter (principal); S83.91XA Sprain of unspecified site of right knee, initial encounter | CPT/HCPCS: 99212 ==

== ENCOUNTER → 2022-08-10 02:05 | Outpatient (CLI) | payer OTHER, SELFPAY ==
--- NOTE | 2022-08-10 | DI.MAMMO_ITS ---
Exam(s) MAMMO SCREENING EXAM: MAMMO SCREENING CLINICAL HISTORY: SCREENING MAMMO FOR BREAST CANCER Z12.31 TECHNIQUE: Bilateral full field digital CC and MLO mammographic images were obtained with 3D tomosyn thesis and utilizing computer aided detection (CAD). COMPARISON: Available for comparison. FINDINGS: Masses/Architectural Distortion: None seen. Microcalcifications: No suspicious pleomorphic-type are seen. Skin Thickening/Nipple Retraction: None. IMPRESSION: 1. No significant interval change with no specific features of malignancy noted. 2. Unless there is more urgent need, screening mammography is recommended, as per [employer] guidelines. BI-RADS Category 1 - Negative Breast Density - Category B - Scattered areas of fibroglandular density Breast density category C or D implies that the patient has dense breast tissue. Dense breast tissue is very common and is not abnormal but dense breast tissue can make it harder to find cancer on a ma mmogram. Also, dense breast tissue may increase their breast cancer risk. This information about the result of the mammogram report was provided to the patient to raise their awareness. Use this report when you speak with the patient about their risks for breast cancer, which includes their family hist ory. At that time, you may recommend for more screening tests (Ultrasound or MRI) as they might be us eful based on their risk. A negative radiographic report should not delay biopsy if a dominant or clinically suspicious mass is present. Up to ten percent of cancers are not identified on mammography. A negative report may reinforce clinical impression. Adenosis and dense breasts may obscure an underlying neoplasm. False positive reports average 6 to 10%. Patient will receive a letter notifying them of these results.
--- NOTE | 2022-08-10 | DI.US_ITS ---
Exam(s) US THYROID EXAM: US THYROID CLINICAL HISTORY: MULTIPLE THYROID NODULES E04.2. TECHNIQUE: Ultrasound thyroid performed using standard protocol. COMPARISON: US THYROID ULTRASOUND from 10/03/2017 FINDINGS: ISTHMUS: 1.4 cm There is a 2.6 cc by 1.4 AP by 1.5 transverse cm solid isoechoic nodule within the isthmus. It has s mooth margins and no echogenic foci are seen internally. This compares to 2.3 x 1.4 x 1.6 cm on the prior examination. This is consistent with a TI rads level 3 nodule. Due to its size, FNA is recomm ended. RIGHT LOBE: Size: 4.6 x 1.2 x 1.4 cm Echogenicity: Normal. Vascularity: Normal. Nodules: There has been interval increase in size of the solid isoechoic nodule in the lower pole. I t now measures 2 cc by 1.3 AP by 1.9 transverse cm. This compares to 2 x 1.0 x 1.3 cm. The margins are smooth and no echogenic foci are seen internally. This is consistent with a TI rads level 3 nodu le. Due to its size, follow-up is recommended. LEFT LOBE: Size: 3 x 1 x 1 cm Echogenicity: Normal. Vascularity: Normal. Nodules: None. OTHER FINDINGS: None. IMPRESSION: Thyroid nodules. Please see the above discussion for complete details. DATA REPOSITORY:
== END ==
PROVIDERS: PCP Physician Assistant Medical; Visit Provider Physician Assistant Medical
DX: E04.2 Nontoxic multinodular goiter (principal); Z12.31 Encounter for screening mammogram for malignant neoplasm of breast
CPT/HCPCS: 77063; 77067; 76536

== ENCOUNTER → 2022-10-20 14:13 | Outpatient (CLI) | payer OTHER, SELFPAY ==
--- NOTE | 2022-10-20 | DI.US_ITS ---
Exam(s) US LOWER EXTREMITY VENOUS LT EXAM: US LOWER EXTREMITY VENOUS LT CLINICAL HISTORY: LEFT LEG EDEMA R60.0. TECHNIQUE: Ultrasound performed using standard protocol. COMPARISON: No exams were available for comparison FINDINGS: Duplex venous ultrasound was performed according to the usual protocol. The deep veins are freely com pressible throughout and there is normal flow augmentation with manual calf compression. 2D and Doppl er evaluation are unremarkable. IMPRESSION: No evidence of deep venous thrombosis of the left lower extremity. DATA REPOSITORY:
== END ==
PROVIDERS: PCP Physician Assistant Medical; Visit Provider Nurse Practitioner Family
DX: R60.0 Localized edema (principal)
CPT/HCPCS: 93971

== ENCOUNTER 2022-11-06 14:12 | Outpatient (REF) | payer OTHER, SELFPAY ==
[2022-11-06 15:53] LABS: Abs Immature Grans 0.02 10^3/uL (0.0-0.06); Absolute Basophil Count 0.02 10^3/uL (0.0-0.2); Absolute Eosinophil Count 0.14 10^3/uL (0.0-0.7); Absolute Lymphocyte Count 1.87 10^3/uL (1.2-3.4); Absolute Monocyte Count 0.49 10^3/uL (0.1-0.8); Absolute Neutrophil Count 4.15 10^3/uL (1.2-6.7); Basophils % 0.3; Eosinophils % 2.1; HCT 39.7 % (36.0-46.0); HGB 12.3 g/dL (11.2-15.7); Immature Grans % 0.3; MCH 27.2 pg (27.0-33.0); MCV 88 fL (80-95); MPV 10.2 fL (8.0-11.0); Monocytes % 7.3; Platelet Count 295 10^3/uL (130-400); RBC 4.53 10^6/uL (3.93-5.22); RDW-SD 45.1 fL; WBC 6.69 10^3/uL (4.4-10.8)
[2022-11-06 16:04] LABS: Anion Gap 7.2 mmol/L (3-11); BUN 14 mg/dL (7-18); CO2 30.8 mmol/L (21.0-32.0); CREATININE 0.8 mg/dL (0.55-1.02); Calcium 9.2 mg/dL (8.5-10.1); Chloride 103 mmol/L (98-107); Estimated GFR 79.71 (mL/min/1.73m2); Glucose 87 mg/dL (74-106); Potassium 4.5 mmol/L (3.5-5.1); Sodium 141 mmol/L (136-145)
[2022-11-06 16:35] LABS: Hemoglobin A1C 6.1 % (<5.7)
== END 2022-11-06 14:13 | disposition home or self-care (01) ==
LOC: NCHCN 14:12
PROVIDERS: PCP Physician Assistant Medical; Visit Provider Physician Assistant Medical
DX: R60.0 Localized edema (principal); R73.09 Other abnormal glucose; I10 Essential (primary) hypertension
CPT/HCPCS: 80048; 83036; 85025

== ENCOUNTER 2022-11-28 09:06 | Emergency (ER) | payer OTHER, SELFPAY ==
[2022-11-28 09:13] VITALS: BP 142/91; PULSE 76; RESP 18; TEMP 36.8; O2SAT 96
--- NOTE | 2022-11-28 09:30 | DI.RAD_ITS ---
Exam(s) XR RIBS RT W PA LAT CHEST EXAM: XR RIBS RT W PA LAT CHEST CLINICAL HISTORY: fall with rib injury TECHNIQUE: 2D digital imaging was performed. COMPARISON: CR,RF RF barium swallow from 12/17/2018 FINDINGS: RIBS 3 VIEWS-RIGHT There are no obvious acute rib fractures evident. No lytic rib lesions identified. CXR- 2 VIEWS: No lung contusion or pneumothorax. There is no pleural effusion evident. Heart size is normal and there is no significant mediastinal widening. Moderate size hiatal hernia again evident, as seen on upper GI series of 12/17/2018 IMPRESSION: 1. No obvious right rib fractures evident. Also no significant rib lesions. 2. No ipsilateral lung nor pleural abnormality evident. No pneumothorax. Moderate size hiatal hernia noted. DATA REPOSITORY: RADIATION DOSE DELIVERED:
--- NOTE | 2022-11-28 09:42 | W.ED.GENAD ---
Discharge Plan Disposition Patient Disposition: Home Condition: Stable Discharge Details Clinical Impression: Contusion of chest wall Primary Care Provider: Natty Wilson ED Provider: Griffin Durham Home Meds and New Rx's Prescriptions: Continued pantoprazole 40 mg tablet,delayed release (DR/EC) 40 mg PO DAILY amlodipine 5 MG tablet 2.5 mg PO DAILY metoprolol succinate 25 MG tablet extended release 24 hr 25 mg PO DAILY Qty: 30 Caltrate 600 plus D 600 mg-20 mcg (800 unit) tablet,chewable 1 tab PO DAILY aspirin 81 mg capsule 81 mg PO DAILY triamcinolone acetonide 0.1 % cream 1 applic topical DAILY simvastatin [Zocor] 20 mg tablet 20 mg PO DAILY Discharge Instructions Instructions: Chest Wall Pain (ED) Additional Instructions: You may continue to use [id number] pain medication as needed for discomfort. If the lidocaine patch helps with your symptoms please use [id number] 4% lidocaine patches and take as directed on packaging. If you develop any new or worsening symptoms such as fever chills, severe shortness of breath, or change in your condition feel free to return the emergency department for reassessment otherwise follow-up with your primary care provider if not showing signs of improvement in the next 1 to 2 weeks. Referrals: Natty Wilson PA [Primary Care Provider] - 2 weeks Discharge Data Discharge Date/Time-TO BE ENTERED AT DEPARTURE: 11/28/22 10:57 Medical Decision Making Patient presenting to the emergency department for chief complaint of anterior rib pain and some shortness of breath with pain on inspiration. She states approximately 1 week ago she had a mechanical fall striking her chest on a chair. Patient denies any other injury or trauma and states that there is also bruising to her chest wall. Physical exam shows no abdominal tenderness, clear lung sounds, normal cardiac exam but patient does have ecchymosis and tenderness to the anterior lateral chest wall over the lower right ribs. We will plan on performing chest and rib x-rays and will give lidocaine patch pending results. Review of imaging and radiologist interpretation shows no acute findings. Suggest chest wall contusion versus nonvisible rib fracture. Will encourage patient to continue with [id number] pain medication, lidocaine patches, and activity as tolerated along with deep breathing exercises to prevent secondary pneumonia. After discussion of diagnosis and plan of care patient has no further needs, questions, or concerns and states clear understanding to return to the emergency department for any worsening symptoms. This documentation was generated using [employer] dictation system, please disregard any oddities of phrase or misspellings. Imaging Data Radiologic Study: Imaging: X-Ray Radiologist's impression: EXAM: XR RIBS RT W PA LAT CHEST CLINICAL HISTORY: fall with rib injury TECHNIQUE: 2D digital imaging was performed. COMPARISON: CR,RF RF barium swallow from 12/17/2018 FINDINGS: RIBS 3 VIEWS-RIGHT There are no obvious acute rib fractures evident. No lytic rib lesions identified. CXR- 2 VIEWS: No lung contusion or pneumothorax. There is no pleural effusion evident. Heart size is normal and there is no significant mediastinal widening. Moderate size hiatal hernia again evident, as seen on upper GI series of 12/17/2018 IMPRESSION: 1. No obvious right rib fractures evident. Also no significant rib lesions. 2. No ipsilateral lung nor pleural abnormality evident. No pneumothorax. Moderate size hiatal hernia noted. HPI General Mode of arrival: ambulatory. Date/Time Provider Initiated Documentation: 11/28/22 09:16. Limitations to Documentation: no limitations. Information obtained by: patient and RN notes reviewed. History of Present Illness 67 year old F presents to the emergency department with the chief complaint of fall with right rib injury, described as moderate, with intensity rated at 8. Quality is described as sharp, and is localized to the chest. Patient reports no radiation. Patient started experiencing this week(s) (1) and it has been constant. No relieving factors improve symptom(s), No exacerbating factors reported . Patient notes no other symptoms.. Patient did receive the following treatments prior to arrival, none Related Data Home Medications Medication Instructions Recorded Confirmed amlodipine 5 mg tablet 2.5 mg PO DAILY 01/05/14 11/28/22 metoprolol succinate 25 mg 25 mg PO DAILY #30 tab-caps 10/09/16 11/28/22 tablet,extended release 24 hr pantoprazole 40 mg tablet,delayed 40 mg PO DAILY 12/02/18 11/28/22 release aspirin 81 mg capsule 81 mg PO DAILY 08/11/22 11/28/22 calcium carbonate 600 mg-vitamin 1 tab PO DAILY 08/11/22 11/28/22 D3 20 mcg (800 unit) chewable tablet (Caltrate 600 plus D) simvastatin 20 mg tablet (Zocor) 20 mg PO DAILY 08/11/22 11/28/22 triamcinolone acetonide 0.1 % 1 applic topical DAILY 08/11/22 11/28/22 topical cream Allergies Allergy/AdvReac Type Severity Reaction Status Date / Time lisinopril Allergy Intermediate Wheezing Unverified 11/28/22 09:16 Sulfa (Sulfonamide Allergy Intermediate Hives, rash Unverified 11/28/22 09:16 Antibiotics) General Stated Complaint: Fall/Non TraumaCriteria HARI: 3 Review of Systems Constitutional Constitutional: Denies chills, Denies fever(s) and Denies headache(s) ENT Ears, Nose, Mouth, and Throat: Denies headache(s) and Denies neck pain Cardiovascular Cardiovascular: Denies chest pain, Denies syncope, Denies dyspnea and Reports dyspnea on exertion Respiratory Respiratory: Denies cough, Reports pain on inspiration, Denies dyspnea and Reports dyspnea on exertion Gastrointestinal Gastrointestinal: Denies abdominal pain, Denies hematochezia, Denies diarrhea, Denies nausea and Denies vomiting Genitourinary Genitourinary: Denies hematuria Musculoskeletal Musculoskeletal: Denies back pain and Denies neck pain Integumentary/Breasts Skin/Breast: Reports unusual bruising Neurologic Neurologic: Denies syncope, Denies headache(s) and Denies paresthesias PFSH All Active Problems (Updated 11/28/22 @ 10:49 by Griffin Durham NP) Contusion of chest wall (Acute) Right knee sprain (Acute) Chest wall pain (Acute) Back pain (Acute) Hypertension, benign (Acute) Vertigo (Acute) Thyroid nodule (Acute) Cellulitis (Acute 07/29/14) Internal derangement of right knee (Acute 01/29/17) Primary osteoarthritis of right knee (Acute 12/04/16) Left knee DJD (Acute) Medical History Abdominal pain, epigastric Abnormal cardiovascular stress test Cervical lymphadenopathy Chest pain COVID-19 Dysphagia Fatty liver Fatty liver disease, nonalcoholic Fibroid uterus GERD (gastroesophageal reflux disease) Hiatal hernia History of total knee arthroplasty Hypertension Multiple thyroid nodules Obesity Osteoarthritis Palpitations Plantar fasciitis Prediabetes Surgical History Appendectomy Biopsy, Lymph Node (11/07/17) clinically suspicious lymphocytes Colonoscopy - [facility] 2013 H/O arthroscopy of left knee H/O bilateral cataract extraction History of lumpectomy of right breast Ligation of fallopian tube Replacement of total knee joint Rt and Left Social History Smoking/Tobacco Use Status: Never Smoking risk assessment performed?: Yes Alcohol Intake: current Alcohol Intake frequency: a few times a week Drug use: Never Substance use type: does not use What type of physical activity do you participate in: walking and swimming Duration: 45-60 minutes/day Frequency: 5-6 times per week Do you feel safe at home: Yes Do you feel safe in your relationship?: Yes Exam Const General: cooperative, no acute distress and not ill appearing Orientation: alert, awake and oriented x3 Neck Neck: normal visual inspection and full ROM Chest Chest: abnormal inspection of the chest other (Ecchymosis right lower rib), no crepitus, localized rib tenderness with anteroposterior compression right anterior-axillary line involving the 8th rib, involving the 9th rib and involving the 10th rib and tenderness rib right anterior-axillary line involving the 8th rib, involving the 9th rib and involving the 10th rib; no sternal xxx Resp Effort & Inspection: normal respiratory effort, able to speak in complete sentences and no respiratory distress Auscultation: clear to auscultation bilaterally Cardio Rate: regular rate Rhythm: regular rhythm Heart Sounds: S1 normal, S2 normal, no gallops, no murmurs and no rubs Skin General skin exam: no rashes or lesions noted Neuro General: patient alert, patient awake, patient oriented x3, moves all extremities and no focal motor deficits Sensory Exam: no sensory deficits noted Course Vital Signs Vital signs: Vital Signs Temperature 36.8 C 11/28/22 09:13 Pulse 76 11/28/22 09:13 Respiratory Rate 18 11/28/22 09:13 Blood Pressure 142/91 H 11/28/22 09:13 Pulse Oximetry 96 11/28/22 09:13 Temperature 36.8 C 11/28/22 09:13 Temperature Source Temporal Artery Scan 11/28/22 09:13 Pulse 76 11/28/22 09:13 Respiratory Rate 18 11/28/22 09:13 Respiratory Effort Non-Labored 11/28/22 09:17 Blood Pressure 142/91 H 11/28/22 09:13 Blood Pressure Position Sitting 11/28/22 09:13 Pulse Oximetry 96 11/28/22 09:13 PAWSS Have you Been Recently Intoxicated or Drunk Within the Last 30 days?: No Have you Ever Experienced Previous Episodes of Alcohol Withdrawal?: No Have you ever Experienced Withdrawal Seizures?: No Have you ever Experienced Delirium Tremens(DT)s?: No Have you ever undergone Alcohol Rehabilitation Treatment (i.e, inpt ot outpatient treatment programs)?: No Have you ever Experienced Blackouts?: No Have you ever Combined Alcohol with other Downers within the last 90 days?: No Have you ever Combined Alcohol with any other Substance of Abuse during the last 90 days?: No Positive Blood Alcohol level on Presentation? [PCS.BAL]: No Evidence of Increased Autonomic Activity (i.e. HR>120, tremor, sweating, agitation, nausea)?: No Result: 0
[2022-11-28] MEDS: Lidocaine 5% Patch 1 PATCH TP (09:48)
== END 2022-11-28 10:57 | disposition home or self-care (01) ==
PROVIDERS: Emergency Provider Nurse Practitioner Family; PCP Physician Assistant Medical
DX: S20.211A Contusion of right front wall of thorax, initial encounter (principal); W19.XXXA Unspecified fall, initial encounter; W22.03XA Walked into furniture, initial encounter; I10 Essential (primary) hypertension; Z86.16 Personal history of COVID-19; Z79.82 Long term (current) use of aspirin
CPT/HCPCS: 99283; 71046; 71100; 99284

== ENCOUNTER 2022-12-31 05:44 | Emergency (ER) | payer OTHER, SELFPAY ==
[2022-12-31] VITALS (7 sets, daily range): BP systolic 108–174; BP diastolic 73–103; PULSE 67–117; RESP 18–35; TEMP 36.5; O2SAT 92–95
--- NOTE | 2022-12-31 05:45 | DI.RAD_ITS ---
Exam(s) XR PORTABLE CHEST AP EXAM: XR PORTABLE CHEST AP CLINICAL HISTORY: copuhgh, r/o pneumonia TECHNIQUE: 2D digital imaging was performed of the chest. One image was obtained. An AP view was ob tained. COMPARISON: CR XR RIBS RT W PA LAT CHEST from 11/28/2022 FINDINGS: MEDIASTINUM: Normal. HEART: Normal. PULMONARY VASCULATURE: Normal. LUNGS: Linear opacities are seen in the lung bases, right greater than left. PLEURAL SPACE: No pleural effusion or pneumothorax. BONE:Within normal limits for the patient's age. OTHER FINDINGS:Normal. IMPRESSION: Bilateral basilar opacities. This may represent streaky atelectasis. Pneumonia cannot be entirely e xcluded. Please correlate clinically. DATA REPOSITORY: RADIATION DOSE DELIVERED:
--- NOTE | 2022-12-31 06:06 | W.ED.GENAD ---
Discharge Plan Disposition Patient Disposition: Home Condition: Good Discharge Details Clinical Impression: Community acquired pneumonia Primary Care Provider: Natty Wilson ED Provider: Fred So Home Meds and New Rx's Prescriptions: New doxycycline hyclate 100 mg tablet 100 mg PO BID Qty: 20 0RF No Action pantoprazole 40 mg tablet,delayed release (DR/EC) 40 mg PO DAILY amlodipine 5 MG tablet 2.5 mg PO DAILY metoprolol succinate 25 MG tablet extended release 24 hr 25 mg PO DAILY Qty: 30 Caltrate 600 plus D 600 mg-20 mcg (800 unit) tablet,chewable 1 tab PO DAILY aspirin 81 mg capsule 81 mg PO DAILY triamcinolone acetonide 0.1 % cream 1 applic topical DAILY simvastatin [Zocor] 20 mg tablet 20 mg PO DAILY Discharge Instructions Instructions: Community Acquired Pneumonia (ED) Additional Instructions: At this time you have evidence of pneumonia on your chest x-ray. Please take the antibiotic doxycycline as directed. Do not take it with any calcium supplement as this can diminish the absorption. Please make sure to take it with food otherwise it can cause nausea and vomiting. If you notice any worsening of your symptoms, or any new symptoms such as vomiting, diarrhea, fever, chills, shortness of breath, chest pain, numbness, weakness, or fainting , please return immediately to the emergency department for reevaluation. Please follow up with your primary care provider as soon as possible for reassessment and reevaluation. As always, it was a pleasure participating in your medical care today. Referrals: Natty Wilson PA [Primary Care Provider] - Medical Decision Making This is a pleasant 67-year-old female with hypertension, high cholesterol, borderline diabetes, who presents today for evaluation of cough. Patient states that for the last 4 days she has had a mild runny nose and cough. Cough is nonproductive. She denies any fever. No chest pain or shortness of breath. No history of asthma. No vomiting or diarrhea. She has had her COVID vaccines, and her annual influenza vaccine. No hemoptysis. No other complaints at this time. Physical exam demonstrates a well-appearing female, oxygenation stable. Lung sounds appear relatively clear. Differential is highest for viral etiology, bronchitis or pneumonia. We will get a chest x-ray, monitor closely and reassess. Symptoms inconsistent with ACS. 6:24 AM X-ray shows evidence of pneumonia. Will give doxycycline for home use. Oxygenation remained stable. Patient is stable for outpatient management. I have extensively reviewed the treatment plan and discharge instructions with the patient. I have addressed all patient concerns at this time. The patient was made aware of what symptoms to monitor for that would warrant a return to the emergency department. Discussed the plan with the patient, they demonstrate verbal understanding and agreement with our assessment and plan at this time. The documentation in this chart was dictated using [employer] dictation software. Please excuse any dictation errors. HPI General Date/Time Provider Initiated Documentation: 12/31/22 05:54. HPI Narrative: This is a pleasant 67-year-old female with hypertension, high cholesterol, borderline diabetes, who presents today for evaluation of cough. Patient states that for the last 4 days she has had a mild runny nose and cough. Cough is nonproductive. She denies any fever. No chest pain or shortness of breath. No history of asthma. No vomiting or diarrhea. She has had her COVID vaccines, and her annual influenza vaccine. No hemoptysis. No other complaints at this time. Related Data Home Medications Medication Instructions Recorded Confirmed amlodipine 5 mg tablet 2.5 mg PO DAILY 01/05/14 12/31/22 metoprolol succinate 25 mg 25 mg PO DAILY #30 tab-caps 10/09/16 12/31/22 tablet,extended release 24 hr pantoprazole 40 mg tablet,delayed 40 mg PO DAILY 12/02/18 12/31/22 release aspirin 81 mg capsule 81 mg PO DAILY 08/11/22 12/31/22 calcium carbonate 600 mg-vitamin 1 tab PO DAILY 08/11/22 12/31/22 D3 20 mcg (800 unit) chewable tablet (Caltrate 600 plus D) simvastatin 20 mg tablet (Zocor) 20 mg PO DAILY 08/11/22 12/31/22 triamcinolone acetonide 0.1 % 1 applic topical DAILY 08/11/22 12/31/22 topical cream doxycycline hyclate 100 mg tablet 100 mg PO BID #20 tabs 12/31/22 Previous Rx's Medication Instructions Recorded doxycycline hyclate 100 mg tablet 100 mg PO BID #20 tabs 12/31/22 Allergies Allergy/AdvReac Type Severity Reaction Status Date / Time lisinopril Allergy Intermediate Wheezing Unverified 12/31/22 05:54 Sulfa (Sulfonamide Allergy Intermediate Hives, rash Unverified 12/31/22 05:54 Antibiotics) General Stated Complaint: RespSymp HARI: 3 Review of Systems All systems reviewed & are unremarkable except as noted in HPI and below PFSH All Active Problems (Updated 12/31/22 @ 06:22 by Fred So DO) Community acquired pneumonia (Acute) Right knee sprain (Acute) Chest wall pain (Acute) Back pain (Acute) Hypertension, benign (Acute) Vertigo (Acute) Thyroid nodule (Acute) Cellulitis (Acute 07/29/14) Internal derangement of right knee (Acute 01/29/17) Primary osteoarthritis of right knee (Acute 12/04/16) Left knee DJD (Acute) Medical History Abdominal pain, epigastric Abnormal cardiovascular stress test Cervical lymphadenopathy Chest pain COVID-19 Dysphagia Fatty liver Fatty liver disease, nonalcoholic Fibroid uterus GERD (gastroesophageal reflux disease) Hiatal hernia History of total knee arthroplasty Hypertension Multiple thyroid nodules Obesity Osteoarthritis Palpitations Plantar fasciitis Prediabetes Surgical History Appendectomy Biopsy, Lymph Node (11/07/17) clinically suspicious lymphocytes Colonoscopy - [facility] [place] 2013 H/O arthroscopy of left knee H/O bilateral cataract extraction History of lumpectomy of right breast Ligation of fallopian tube Replacement of total knee joint Rt and Left Social History Smoking/Tobacco Use Status: Never Smoking risk assessment performed?: Yes Alcohol Intake: current Alcohol Intake frequency: a few times a week Drug use: Never Substance use type: does not use What type of physical activity do you participate in: walking and swimming Duration: 45-60 minutes/day Frequency: 5-6 times per week Do you feel safe at home: Yes Do you feel safe in your relationship?: Yes Exam Narrative Exam Narrative: 1.Const: Well-nourished, Well-developed, appearing stated age 2.Eyes: PERRL, no conjunctival injection, and symmetrical lids. 3.ENT: Atraumatic external nose and ears. Moist MM. Neck: Symmetric, trachea midline, No thyromegaly. 4.CVS: +S1/S2, No murmurs or gallops. Peripheral pulses 2+ and equal in all extremities. Brisk capillary refill in all extremities. 5.RESP: Unlabored respiratory effort. Clear to auscultation bilaterally. No wheezes rales or rhonchi 6.GI: Soft, Nontender/Nondistended, No hepatosplenomegaly. No guarding or rebound. 7.MSK: Normocephalic/Atraumatic, Extremities w/o deformity or ttp No cyanosis or clubbing, Normal movement of all extremities 8.Skin: Warm, Dry. No rashes or lesions. 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 Sensation grossly intact, no focal neurologic deficits. 10.Psych: (AAO) x3. Appropriate mood and affect Course Vital Signs Vital signs: Vital Signs Temperature 36.5 C 12/31/22 05:50 Pulse 67 12/31/22 05:50 Respiratory Rate 20 12/31/22 05:50 Blood Pressure 161/73 H 12/31/22 05:50 Pulse Oximetry 95 12/31/22 05:50 Temperature 36.5 C 12/31/22 05:50 Temperature Source Oral 12/31/22 05:50 Pulse 67 12/31/22 05:50 Respiratory Rate 20 12/31/22 05:50 Respiratory Effort 12/31/22 05:50 Blood Pressure 161/73 H 12/31/22 05:50 Blood Pressure Position Sitting 12/31/22 05:50 Pulse Oximetry 95 12/31/22 05:50 Oxygen Delivery Method Room Air 12/31/22 05:50 Oxygen Flow Rate 0 12/31/22 05:50 Pain Level 0 12/31/22 05:50
[2022-12-31] MEDS: Doxycycline Hyclate 100 MG, 2 CAPS/BTL PO (06:25)
[2022-12-31 06:48] LABS: COVID-19 PCR Negative (Negative); Influenza A PCR Negative (Negative); Influenza B PCR Negative (Negative); RSV PCR Negative (Negative)
[2022-12-31 06:50] LABS: Source Nasopharynx
--- NOTE | 2022-12-31 06:53 | DI.VRAD_ITS ---
PROCEDURE INFORMATION: Exam: XR Chest Exam date and time: 12/31/2022 5:56 AM Age: 67 years old Clinical indication: Bronchospasm and other: R/O pnuemonia TECHNIQUE: Imaging protocol: Radiologic exam of the chest. Views: 1 view. COMPARISON: CR XR RIBS RT W PA LAT CHEST 11/28/2022 10:01 AM FINDINGS: Lungs: There are patchy bibasilar opacities, which may represent patchy subsegmental atelectasis, though underlying pneumonia cannot be excluded. Pleural spaces: Unremarkable. No pleural effusion. No pneumothorax. Heart/Mediastinum: Unremarkable. No cardiomegaly. Bones/joints: Unremarkable. IMPRESSION: Patchy bibasilar opacities, may represent patchy subsegmental atelectasis, though underlying pneumonia cannot be excluded. Dictated and Authenticated by: Zoran Duarte MD. Ordering:MONIE Ibarra MD
== END 2022-12-31 06:40 | disposition home or self-care (01) ==
PROVIDERS: Emergency Provider Student in an Organized Health Care Education/Training Program; PCP Physician Assistant Medical
DX: J18.9 Pneumonia, unspecified organism (principal); I10 Essential (primary) hypertension; E78.00 Pure hypercholesterolemia, unspecified; Z79.82 Long term (current) use of aspirin; Z86.16 Personal history of COVID-19; Z20.822 Contact with and (suspected) exposure to COVID-19
CPT/HCPCS: 87637; 99283; 99284; 71045

== ENCOUNTER 2023-01-24 14:16 | Emergency (ER) | payer OTHER, SELFPAY ==
[2023-01-24] VITALS (29 sets, daily range): BP systolic 87–171; BP diastolic 47–100; PULSE 57–135; RESP 12–36; TEMP 37; O2SAT 96–98
--- NOTE | 2023-01-24 14:15 | RT.EKG_ITS ---
APPROVED REPORT Exam: Resting ECG Reason for Exam: stroke symptoms Patient Location: E HR:111 bpm ECG Measurements Heart Rate 111 AXIS AR 170 P 70 QRSd 74 QRS -4 QT 313 T 74 QTc 432 Conclusion Sinus tachycardia with irregular rate...V-rate 90-146, variation>10% Nonspecific repol abnormality, diffuse leads...ST dep, T flat/neg, ant/lat/inf Rapid rhythm at a rate of [address] segment depressions laterally and in leads I and II. ST segment depressions and sinus arrhythmia are new compared to prior. Prior dated 2020.
--- NOTE | 2023-01-24 14:30 | RT.EKG_ITS ---
APPROVED REPORT Exam: Resting ECG Reason for Exam: Shortness of breath Patient Location: E HR:106 bpm ECG Measurements Heart Rate 106 AXIS NV 196 P 57 QRSd 77 QRS -8 QT 331 T 34 QTc 440 Conclusion Sinus tachycardia...rate> 99 Supraventricular bigeminy...bigeminy string>4 w/ SV complexes Low voltage, precordial leads...precordial leads <1.0mV Sinus tachycardia with sinus arrhythmia at a rate of 106. ST segment depressions in lateral leads im proved compared to prior. QTc within normal limits. Narrow QRS. Compared to prior ST segment depre ssions have improved but sinus arrhythmia is persistent.
--- NOTE | 2023-01-24 14:30 | DI.CT_ITS ---
Exam(s) CT CHEST PE CTA EXAM: CT CHEST PE CTA CLINICAL HISTORY: chest pain, shortness of breath. TECHNIQUE: Imaging Protocol: Axial CT angiography was performed with multi-slice acquisition and mu lti-planar and/or 3D reconstructions. CONTRAST MATERIAL: Intravenous: Omnipaque 350 contrast volume:100 mL COMPARISON: CT ABD PELVIS WITH CONTRAST from 05/28/[address] THORAX CTA from 06/10/2021 CT,NM,TMT NM MPI REST STRESS GRP from 06/23/2021 FINDINGS: Tracheobronchial tree: Patent where visualized. Pulmonary parenchyma: There is a moderate right pleural effusion and subjacent infiltrate in the righ t lower lobe. No architectural distortion. Pulmonary Arteries: No evidence of filling defect to suggest pulmonary emboli. Mediastinum and Angelica: No dominant adenopathy or fluid collection. The esophagus is unremarkable. Th ere is a large hiatal hernia. Visualized thyroid gland: There is a 1.5 cm hypodense nodule in the lower pole of the right lobe of t he thyroid gland. In nonemergent thyroid ultrasound is recommended for further evaluation. Pleura: There is no left pleural effusion. No pneumothorax. Heart: The heart is not dilated. No coronary artery calcifications are seen. No pericardial effusion. Aorta: Thoracic aorta non-dilated. No evidence of dissection. Atherosclerosis. Upper abdomen: A simple cyst is again seen in the superior pole of the right kidney. No follow-up i s recommended. There is fatty infiltration of the pancreas. Soft tissues: Unremarkable. Bones: Within normal limits for the patient's age. IMPRESSION: 1. No evidence of pulmonary embolism, thoracic aortic dissection or aneurysm. 2. Moderate right pleural effusion and right basilar infiltrate which may represent atelectasis or pn eumonia. 3. 1.5 cm hypodense nodule in the inferior pole of the right lobe of the thyroid gland. Nonemergent thyroid ultrasound is recommended for further evaluation. 4. Findings were discussed with Angie Mckinney at 4:14 p.m. on 01/24/2023. Unexpected findings RADIATION DOSE DELIVERED: 405.9mGy.cm Total DLP DATA REPOSITORY: All CT scans at this facility are submitted to the National Radiology Data Registry (NRDR) Dose Index Registry (DIR) with the [employer] (ACR). RADIATION OPTIMIZATION: All CT scans at this facility use at least one of these dose optimization te chniques: automated exposure control; mA and/or kV adjustment per patient size (includes targeted exa ms where dose is matched to clinical indication); or iterative reconstruction.
[2023-01-24] MEDS: Metoprolol 25 MG TAB PO (14:58)
[2023-01-24 15:03] LABS: Abs Immature Grans 0.04 10^3/uL (0.0-0.06); Absolute Basophil Count 0.04 10^3/uL (0.0-0.2); Absolute Eosinophil Count 0.24 10^3/uL (0.0-0.7); Absolute Lymphocyte Count 2.63 10^3/uL (1.2-3.4); Absolute Monocyte Count 0.73 10^3/uL (0.1-0.8); Absolute Neutrophil Count 4.93 10^3/uL (1.2-6.7); Basophils % 0.5; Eosinophils % 2.8; HCT 43.8 % (36.0-46.0); HGB 13.7 g/dL (11.2-15.7); Immature Grans % 0.5; Lymphocytes % 30.5; MCH 26.6 pg (27.0-33.0); MCHC 31.3 % (32.0-36.0); MCV 85 fL (80-95); MPV 9.6 fL (8.0-11.0); Monocytes % 8.5; Neutrophils % 57.2; Platelet Count 345 10^3/uL (130-400); RBC 5.16 10^6/uL (3.93-5.22); RDW 13.8 % (11.7-14.6); RDW-SD 43.3 fL; WBC 8.61 10^3/uL (4.4-10.8)
[2023-01-24 15:32] LABS: ALT 26 U/L (14-59); AST 20 U/L (15-37); Albumin 3.9 g/dL (3.4-5.0); Alkaline Phosphatase 111 U/L (46-116); Anion Gap 8.4 mmol/L (3-11); BUN 10 mg/dL (7-18); Bilirubin, Total 0.3 mg/dL (0.2-1.0); CO2 29.6 mmol/L (21.0-32.0); CREATININE 0.8 mg/dL (0.55-1.02); Calcium 8.9 mg/dL (8.5-10.1); Chloride 104 mmol/L (98-107); Estimated GFR 79.71 (mL/min/1.73m2); Glucose 117 mg/dL (74-106); Magnesium 1.9 mg/dL (1.8-2.4); NT-proBNP 189 pg/mL (<300); Potassium 3.9 mmol/L (3.5-5.1); Sodium 142 mmol/L (136-145); TSH (W/Ref FT4) 2.51 uIU/mL (0.36-3.74); Total Protein 8.3 g/dL (6.4-8.2); Troponin I < 50 ng/L (<or=60)
--- NOTE | 2023-01-24 15:39 | W.ED.GENAD ---
Discharge Plan Disposition Patient Disposition: Home Discharge Details Clinical Impression: Chest pain, Pleural effusion Primary Care Provider: Natty Wilson ED Provider: Angie Mckinney Home Meds and New Rx's Prescriptions: Continued pantoprazole 40 mg tablet,delayed release (DR/EC) 40 mg PO DAILY amlodipine 5 MG tablet 2.5 mg PO DAILY metoprolol succinate 25 MG tablet extended release 24 hr 25 mg PO DAILY Qty: 30 Caltrate 600 plus D 600 mg-20 mcg (800 unit) tablet,chewable 1 tab PO DAILY aspirin 81 mg capsule 81 mg PO DAILY triamcinolone acetonide 0.1 % cream 1 applic topical DAILY simvastatin [Zocor] 20 mg tablet 20 mg PO DAILY doxycycline hyclate 100 mg tablet 100 mg PO BID Qty: 20 0RF Discharge Instructions Instructions: Chest Pain (ED) Additional Instructions: An outpatient echocardiogram was ordered. Please call the number on top of the order form. Please follow-up in the next [address] of your chest showed that you do have some fluid on the right side of your lung. No evidence of heart attack. No evidence of pneumonia. Follow up with primary care provider in 2-3 days. Return to ED sooner if any worsening chest pain, shortness of breath, fever, productive cough or concerns. Increase oral fluids. Consider taking 50 mg of the metoprolol if symptoms return. Please discuss possibly increasing her dose of metoprolol with your PCP. Referrals: Natty Wilson PA [Primary Care Provider] - 2 days Discharge Orders Other Ambulatory Orders: Holter Monitor (STAT) Timeframe: 20230127 Facility: [facility] - Location: Respiratory Therapy Ordered By: Angie Mckinney Discharge Data Discharge Date/Time-TO BE ENTERED AT DEPARTURE: 01/24/23 18:24 Medical Decision Making <ANGY Muniz - Last Filed: 01/25/23 20:56> This 67-year-old female presents with report of shortness of breath, lightheadedness, and chest discomfort intermittently, her symptoms have been present for the past several weeks She states that she presents today as she has had some intermittent chest discomfort, some shortness of breath, and some lightheadedness, she denies any dizziness She denies any fever or chills. She states she was recently treated with doxycycline which she finished approximately 2 weeks ago for reported pneumonia, this did not reportedly improve her symptoms She denies any new calf pain or swelling, she denies any weight gain. Initially her EKG was concerning for atrial fibrillation however after closer inspection and discussion with my attending physician, please see his EKG documentation it looks like this is probably more of a sinus arrhythmia 25 mg of metoprolol given for comfort as initially patient was hypertensive with sinus arrhythmia Patient appears quite anxious on assessment We will order CTA to exclude pulmonary embolism We will repeat troponin as patient has had some intermittent chest discomfort although my suspicion that this is coronary artery disease is on the lower end BMP within normal limits, diagnostic labs reassuring We will add on COVID test Repeat troponin and EKG at 1745 Ambulatory trial and disposition Medical Records Medical records reviewed: Yes I reviewed the patient's medical records. <Angie Mckinney NP - Last Filed: 01/24/23 21:07> This 67-year-old female presents with report of shortness of breath, lightheadedness, and chest discomfort intermittently, her symptoms have been present for the past several weeks She states that she presents today as she has had some intermittent chest discomfort, some shortness of breath, and some lightheadedness, she denies any dizziness She denies any fever or chills. She states she was recently treated with doxycycline which she finished approximately 2 weeks ago for reported pneumonia, this did not reportedly improve her symptoms She denies any new calf pain or swelling, she denies any weight gain. Initially her EKG was concerning for atrial fibrillation however after closer inspection and discussion with my attending physician, please see his EKG documentation it looks like this is probably more of a sinus arrhythmia 25 mg of metoprolol given for comfort as initially patient was hypertensive with sinus arrhythmia Patient appears quite anxious on assessment We will order CTA to exclude pulmonary embolism We will repeat troponin as patient has had some intermittent chest discomfort although my suspicion that this is coronary artery disease is on the lower end BMP within normal limits, diagnostic labs reassuring We will add on COVID test Repeat troponin and EKG at 1745 Ambulatory trial and disposition 1640: SJ: Care assumed from provider (ANGY Muniz) Please see their initial HPI, PE, and documentation. Discussed patient details and case and pending workup and disposition. Patient is hemodynamically stable, and alert and oriented. At the time of signout awaiting CT result repeat troponin and EKG at 545. Patient reports that she is feeling better. CT result shows pleural effusion. Road test ordered and O2 sat, Holter monitor ordered. Expected disposition is discharge with outpatient echocardiogram and close follow-up with Holter monitor. 1745: Patient being road tested by ER staff O2 sat 99% with ambulation, heart rate 88. Patient reports she feels much better. Awaiting second troponin at this time. Second troponin within normal limits. Discussed results with patient who verbalized understanding. Patient does have a pleural effusion noted on the right side, discussed strict return instructions. Outpatient echocardiogram ordered. Instructed patient to follow-up with her PCP in the next 2 to 3 days. This text was generated using [employer] dictation system, please disregard any oddities of phrase or misspellings. Imaging Data Radiologic Study: Imaging: CT Scan Radiologist's impression: CT CT THORAX CTA from 06/10/2021 CT,NM,TMT NM MPI REST ? STRESS GRP from 06/23/2021 FINDINGS: Tracheobronchial tree: Patent where visualized. Pulmonary parenchyma: There is a moderate right pleural effusion and subjacent infiltrate in the right lower lobe.? No architectural distortion. Pulmonary Arteries: No evidence of filling defect to suggest pulmonary emboli. Mediastinum and Angelica: No dominant adenopathy or fluid collection.? The esophagus is unremarkable.? There is a large hiatal hernia. Visualized thyroid gland: There is a 1.5 cm hypodense nodule in the lower pole of the right lobe of the thyroid gland.? In nonemergent thyroid ultrasound is recommended for further evaluation.? Pleura: There is no left pleural effusion.? No pneumothorax.? Heart: The heart is not dilated. No coronary artery calcifications are seen. No pericardial effusion.? Aorta: Thoracic aorta non-dilated. No evidence of dissection. Atherosclerosis. Upper abdomen:? A simple cyst is again seen in the superior pole of the right kidney.? No follow-up is recommended.? There is fatty infiltration of the pancreas.? Soft tissues: Unremarkable.? Bones: Within normal limits for the patient's age. IMPRESSION: 1. No evidence of pulmonary embolism, thoracic aortic dissection or aneurysm.? 2. Moderate right pleural effusion and right basilar infiltrate which may represent atelectasis or pneumonia. 3. 1.5 cm hypodense nodule in the inferior pole of the right lobe of the thyroid gland.? Nonemergent thyroid ultrasound is recommended for further evaluation. 4. Findings were discussed with Angie Mckinney at 4:14 p.m. on 01/24/2023. Lab Data Lab results reviewed: Yes I reviewed the patient's lab results. Labs: Laboratory Tests Range/Units 01/24/23 01/24/23 14:28 14:28 WBC (4.4-10.8) 10^3/uL 8.61 RBC (3.93-5.22) 10^6/uL 5.16 Hgb (11.2-15.7) g/dL 13.7 Hct (36.0-46.0) % 43.8 MCV (80-95) fL 85 MCH (27.0-33.0) pg 26.6 L MCHC (32.0-36.0) % 31.3 L RDW (11.7-14.6) % 13.8 Plt Count (130-400) 10^3/uL 345 MPV (8.0-11.0) fL 9.6 Immature Gran % 0.5 Neutrophils % 57.2 Lymphocytes % 30.5 Monocytes % 8.5 Eosinophils % 2.8 Basophils % 0.5 Nucleated RBC % (0.0-0.3) % 0.0 Absolute Neutrophils (1.2-6.7) 10^3/uL 4.93 Absolute Lymphocytes (1.2-3.4) 10^3/uL 2.63 Absolute Monocytes (0.1-0.8) 10^3/uL 0.73 Absolute Eosinophils (0.0-0.7) 10^3/uL 0.24 Absolute Basophils (0.0-0.2) 10^3/uL 0.04 Sodium (136-145) mmol/L 142 Potassium (3.5-5.1) mmol/L 3.9 Chloride (98-107) mmol/L 104 Carbon Dioxide (21.0-32.0) mmol/L 29.6 Anion Gap (3-11) mmol/L 8.4 BUN (7-18) mg/dL 10 Creatinine (0.55-1.02) mg/dL 0.8 Est GFR (CKD-EPI 2020) (mL/min/1.73m2) 79.71 Glucose (74-106) mg/dL 117 H Calcium (8.5-10.1) mg/dL 8.9 Magnesium (1.8-2.4) mg/dL 1.9 Total Bilirubin (0.2-1.0) mg/dL 0.3 AST (15-37) U/L 20 ALT (14-59) U/L 26 Alkaline Phosphatase (46-116) U/L 111 Troponin I (<or=60) ng/L < 50 NT-Pro-B Natriuret Pep (<300) pg/mL 189 Total Protein (6.4-8.2) g/dL 8.3 H Albumin (3.4-5.0) g/dL 3.9 TSH (0.36-3.74) uIU/mL 2.51 HPI <ANGY Muniz - Last Filed: 01/25/23 20:56> General Date/Time Provider Initiated Documentation: 01/24/23 14:20. HPI Narrative: This 67 female with past medical history of COVID-19, chest discomfort, GERD, hypertension presents with report of lightheadedness and shortness of breath for the past 2 weeks. States she has had some intermittent chest discomfort, last episode approximately an hour prior to arrival. Denies any significant weight gain. Denies any new orthopnea. States she does not have dizziness or weakness. She states that in the past she has felt palpitations but denies palpitations with this episode. She is unsure as to her typical heart rate. Related Data Home Medications Medication Instructions Recorded Confirmed amlodipine 5 mg tablet 2.5 mg PO DAILY 01/05/14 01/24/23 metoprolol succinate 25 mg 25 mg PO DAILY #30 tab-caps 10/09/16 01/24/23 tablet,extended release 24 hr pantoprazole 40 mg tablet,delayed 40 mg PO DAILY 12/02/18 01/24/23 release aspirin 81 mg capsule 81 mg PO DAILY 08/11/22 01/24/23 calcium carbonate 600 mg-vitamin 1 tab PO DAILY 08/11/22 01/24/23 D3 20 mcg (800 unit) chewable tablet (Caltrate 600 plus D) simvastatin 20 mg tablet (Zocor) 20 mg PO DAILY 08/11/22 01/24/23 triamcinolone acetonide 0.1 % 1 applic topical DAILY 08/11/22 12/31/22 topical cream doxycycline hyclate 100 mg tablet 100 mg PO BID #20 tabs 12/31/22 Previous Rx's Medication Instructions Recorded doxycycline hyclate 100 mg tablet 100 mg PO BID #20 tabs 12/31/22 Allergies Allergy/AdvReac Type Severity Reaction Status Date / Time lisinopril Allergy Intermediate Wheezing Unverified 12/31/22 05:54 Sulfa (Sulfonamide Allergy Intermediate Hives, rash Unverified 12/31/22 05:54 Antibiotics) General Stated Complaint: Dizzy/Sync HARI: 3 PFSH <ANGY Muniz - Last Filed: 01/25/23 20:56> All Active Problems (Updated 01/24/23 @ 18:13 by Angie Mckinney NP) Community acquired pneumonia (Acute) Chest pain (Acute) Pleural effusion (Acute) Right knee sprain (Acute) Chest wall pain (Acute) Back pain (Acute) Hypertension, benign (Acute) Vertigo (Acute) Thyroid nodule (Acute) Cellulitis (Acute 07/29/14) Internal derangement of right knee (Acute 01/29/17) Primary osteoarthritis of right knee (Acute 12/04/16) Left knee DJD (Acute) Medical History Abdominal pain, epigastric Abnormal cardiovascular stress test Cervical lymphadenopathy Chest pain COVID-19 Dysphagia Fatty liver Fatty liver disease, nonalcoholic Fibroid uterus GERD (gastroesophageal reflux disease) Hiatal hernia History of total knee arthroplasty Hypertension Multiple thyroid nodules Obesity Osteoarthritis Palpitations Plantar fasciitis Prediabetes Surgical History Appendectomy Biopsy, Lymph Node (11/07/17) clinically suspicious lymphocytes Colonoscopy - [facility] 2013 H/O arthroscopy of left knee H/O bilateral cataract extraction History of lumpectomy of right breast Ligation of fallopian tube Replacement of total knee joint Rt and Left Social History Smoking/Tobacco Use Status: Never Smoking risk assessment performed?: Yes Alcohol Intake: current Alcohol Intake frequency: a few times a week Drug use: Never Substance use type: does not use What type of physical activity do you participate in: walking and swimming Duration: 45-60 minutes/day Frequency: 5-6 times per week Do you feel safe at home: Yes Do you feel safe in your relationship?: Yes Exam <ANGY Muniz - Last Filed: 01/25/23 20:56> Const General: cooperative, comfortable and no acute distress Resp Effort & Inspection: normal respiratory effort Auscultation: clear to auscultation bilaterally Cardio Rate: tachycardic Rhythm: regular rhythm GI Inspection: normal to inspection Skin General skin exam: no rashes or lesions noted Neuro General: patient alert Course <ANGY Muniz - Last Filed: 01/25/23 20:56> Vital Signs Vital signs: Vital Signs Temperature 37.0 C 01/24/23 14:20 Pulse 86 01/24/23 14:20 Respiratory Rate 20 01/24/23 14:20 Blood Pressure 157/100 H 01/24/23 14:20 Pulse Oximetry 96 01/24/23 14:20 Temperature 37.0 C 01/24/23 14:20 Pulse 86 01/24/23 14:20 Respiratory Rate 20 01/24/23 14:20 Respiratory Effort Short of Breath 01/24/23 14:33 Respiratory Depth Normal 01/24/23 14:33 Respiratory Pattern Tachypnea 01/24/23 14:33 Blood Pressure 157/100 H 01/24/23 14:20 Blood Pressure Position Supine 01/24/23 14:20 Pulse Oximetry 96 01/24/23 14:20 Oxygen Delivery Method Room Air 01/24/23 14:20 Oxygen Flow Rate 0 01/24/23 14:20 Pain Level 1 01/24/23 14:20 Lab/Test Results Lab/Test Results: Laboratory Tests Range/Units 01/24/23 01/24/23 14:28 14:28 WBC (4.4-10.8) 10^3/uL 8.61 RBC (3.93-5.22) 10^6/uL 5.16 Hgb (11.2-15.7) g/dL 13.7 Hct (36.0-46.0) % 43.8 MCV (80-95) fL 85 MCH (27.0-33.0) pg 26.6 L MCHC (32.0-36.0) % 31.3 L RDW (11.7-14.6) % 13.8 Plt Count (130-400) 10^3/uL 345 MPV (8.0-11.0) fL 9.6 Immature Gran % 0.5 Neutrophils % 57.2 Lymphocytes % 30.5 Monocytes % 8.5 Eosinophils % 2.8 Basophils % 0.5 Nucleated RBC % (0.0-0.3) % 0.0 Absolute Neutrophils (1.2-6.7) 10^3/uL 4.93 Absolute Lymphocytes (1.2-3.4) 10^3/uL 2.63 Absolute Monocytes (0.1-0.8) 10^3/uL 0.73 Absolute Eosinophils (0.0-0.7) 10^3/uL 0.24 Absolute Basophils (0.0-0.2) 10^3/uL 0.04 Sodium (136-145) mmol/L 142 Potassium (3.5-5.1) mmol/L 3.9 Chloride (98-107) mmol/L 104 Carbon Dioxide (21.0-32.0) mmol/L 29.6 Anion Gap (3-11) mmol/L 8.4 BUN (7-18) mg/dL 10 Creatinine (0.55-1.02) mg/dL 0.8 Est GFR (CKD-EPI 2020) (mL/min/1.73m2) 79.71 Glucose (74-106) mg/dL 117 H Calcium (8.5-10.1) mg/dL 8.9 Magnesium (1.8-2.4) mg/dL 1.9 Total Bilirubin (0.2-1.0) mg/dL 0.3 AST (15-37) U/L 20 ALT (14-59) U/L 26 Alkaline Phosphatase (46-116) U/L 111 Troponin I (<or=60) ng/L < 50 NT-Pro-B Natriuret Pep (<300) pg/mL 189 Total Protein (6.4-8.2) g/dL 8.3 H Albumin (3.4-5.0) g/dL 3.9 TSH (0.36-3.74) uIU/mL 2.51 Sign Out <ANGY Muniz - Last Filed: 01/25/23 20:56> Sign Out Data: Sign Out Comment: signed out pending cta chest, repeat troponin and ekg 7192, and ambulatory trial holter monitor Last updated by Ivonne Pearce PA at 01/24/23 16:11
[2023-01-24] MEDS: Omnipaque 350 MG/ML 100 ML BTL IJ (15:43)
[2023-01-24] MEDS: Normal Saline - Diluent 50 ML VIAL IJ (15:44)
[2023-01-24] MEDS: Normal Saline Flush 10 ML SYR IVP (15:47)
--- NOTE | 2023-01-24 16:00 | RT.EKG_ITS ---
APPROVED REPORT Exam: Resting ECG Reason for Exam: dizziness sob Patient Location: E HR:79 bpm ECG Measurements Heart Rate 79 AXIS TX 190 P 45 QRSd 77 QRS 10 QT 359 T 49 QTc 400 Conclusion Sinus rhythm...normal P axis, V-rate 60- 99 Atrial premature complexes...SV complexes w/ short R-R intvls sinus rhytm, PACS, non ischemic
[2023-01-24 16:37] LABS: Bilirubin Negative (Negative); Blood Trace-intact (Negative); Clarity Clear (Clear); Glucose Negative (Negative); Ketones Negative (Negative); Leukocyte Esterase Negative (Negative); Nitrite Negative (Negative); Urobilinogen 0.2 mg/dL (Up to 0.2)
[2023-01-24 16:52] LABS: Bacteria Rare HPF (Negative); C & S Indicated? No; Crystals Negative HPF (Negative); Epithelial Cells Few HPF (Negative); Mucus Trace (Negative); RBC 0-2 HPF (0-2); WBC 0-2 HPF (0-5)
[2023-01-24 18:01] LABS: Troponin I < 50 ng/L (<or=60)
--- NOTE | 2023-01-24 18:10 | NUR.NOTE ---
Nursing Note: Request faxed to [facility] for trans thoracic echocardiogram/dizziness,chest pain, dyspnea/ in 3 to 5 days/follow up with PCP.
--- NOTE | 2023-01-25 07:34 | NUR.NOTE ---
Nursing Note: BHAVIN called stating that the echo needed a prior authorization. BHAVIN Shabazz, stated she would notify the PCP about this.
== END 2023-01-24 18:24 | disposition home or self-care (01) ==
PROVIDERS: Physician Assistant; Emergency Provider Registered Nurse Emergency; PCP Physician Assistant Medical
DX: R07.9 Chest pain, unspecified; J90 Pleural effusion, not elsewhere classified; R42 Dizziness and giddiness; R06.02 Shortness of breath; E04.1 Nontoxic single thyroid nodule
CPT/HCPCS: 71275; 80053; 93005; 99285; 81003; 81015; 83735; 83880; 84443; 84484; 85025; 93010; 93225; 99284; J3490

== ENCOUNTER 2023-02-01 12:39 | Outpatient (RCR) | payer OTHER, SELFPAY ==
--- NOTE | 2023-02-01 12:45 | HOLTER_ITS ---
APPROVED REPORT Conclusion This is a 24-hour Holter monitor ordered for palpitations Rhythm throughout was sinus with an average heart rate of 81. Minimum was 78, maximum 105 There were rare ventricular ectopic beats There were moderately frequent atrial premature beats comprising 6.4% of total There were occasional self-limited atrial runs. The longest of these was 6 beats in duration There was no atrial fibrillation, no high-grade AV block, no pauses greater than 3 seconds
== END 2023-02-23 23:59 | disposition home or self-care (01) ==
LOC: CARDOPNVT 12:39
PROVIDERS: PCP Physician Assistant Medical; Visit Provider Physician Assistant Medical
DX: R00.2 Palpitations (principal); I49.1 Atrial premature depolarization
CPT/HCPCS: 93227; 93225; 93226

== ENCOUNTER 2023-02-07 11:47 | Outpatient (CLI) | payer OTHER, SELFPAY ==
--- NOTE | 2023-02-07 14:45 | DI.US_ITS ---
APPROVED REPORT EXAM: Comprehensive 2D, Doppler, and color-flow Echocardiogram Patient Location: Out-Patient Wig Comber: Betty Taylor RDCS (AE) Indications: Chest pain, Dizziness, Dyspnea Other Information Study Quality: Adequate. Technically limited study due to body habitus. Conclusion Normal left ventricular wall thickness and chamber size. Estimated ejection fraction is 55 to 60%. Wall motion is normal Normal right ventricular size and systolic function Left atrium is mildly dilated. Right atrial size is normal Aortic valve is trileaflet and mildly sclerotic without stenosis or regurgitation Mildly thickened mitral leaflets, mild mitral regurgitation Normal tricuspid valve with trace to mild regurgitation. Estimated right ventricular systolic pressu re is 32 mmHg Wall motion Left Ventricle The left ventricle is normal size. The left ventricular systolic function is normal. The left ventric ular ejection fraction is within the normal range. There is normal left ventricular wall thickness. T here is normal LV segmental wall motion. There is no ventricular septal defect visualized. LVEF is 58 %. Right Ventricle The right ventricle is normal size. The right ventricular systolic function is normal. The RVSP is 32 .3 mmHg. Atria Left atrium is mildly dilated The right atrium size is normal. The interatrial septum is intact with no evidence for an atrial septal defect. Aortic Valve The aortic valve is mildly sclerotic Aortic valve is trileaflet. There is no aortic valvular stenosis . No aortic regurgitation is present. Mitral Valve Mildly thickened mitral leaflets No evidence of mitral valve stenosis. Mild mitral regurgitation. Tricuspid Valve The tricuspid valve is normal in structure. There is no tricuspid valve stenosis. Trace to mild tricu spid regurgitation. Pulmonic Valve The pulmonary valve is normal in structure. There is no pulmonic valvular stenosis. Trace pulmonic re gurgitation. Great Vessels The aortic root is normal in size. The ascending aorta is normal in size. Aortic arch is normal in ca liber. IVC is normal in size and collapses >50% with inspiration. Pericardium There is no pericardial effusion. 2D Dimensions IVSD d PLAX 1.01 cm F: 0.6-1.0 LV Vol A2C d MOD 83.9 mL LVPW d PLAX 1.02 cm F: 0.6 - 1.0 LV Vol A4C d MOD 92.3 mL LVID d PLAX 4.40 cm F: 3.8 - 5.2 LA vol/ BSA A2C s A-L 29.3 mL/m2 LVDs 3.05 cm F: 2.2 - 3.5 LA vol/ BSA A4C s A-L 32.1 mL/m2 Ao Root d 3.16 cm F: 2.7 - 3.3 LA Vol/ BSA Biplane s A-L 31.2 mL/m2 RA Area A4C 16.44 cm2 LA Area A4C s MOD 22.49 cm2 RA Vol/ BSA A4C s A-L 20.8 mL/m2 LA Area A2C s MOD 21.07 cm2 Ao Asc Diam d 2.97 cm F: 2.3 - 3.1 LV EF A4C MOD 58.1 % LV EF Teichholz 57.5 % LV EF A2C MOD 58.8 % LVEF ([employer]) 57.88 % F: 54 - 74 LV EF Biplane MOD 57.9 % LV Volume 65.85 mL F: 46 - 106 SV 51.45 mL LV Volume Index 31.65 mL/m2 F: 29 - 61 SV Index 24.78 mL/m2 LV Vol Biplane MOD 88.9 mL FS 30.05 % M-Mode TAPSE 2.53 cm (M/F) >1.7 LV Diastology MV E' medial 0.072 (>0.07 m/s) E/A Ratio 1.4 LV E/e MED 15.70 (<14) MV E Vmax 1.13 (0.4-1.3 m/s) MV E' lateral 0.119 (>0.1 m/s) MV A Vmax 0.80 (0.4-1.3 m/s) LV E/e LAT 9.45 (<14) MV E/A Ratio 1.36 MV E/E' medial 15.73 MV E/E' lateral 9.48 Aortic Valve LVOT Area 2.94 cm2 AoV Area Vmax 2.15 cm2 LVOT Vmax 1.07 m/s AoV Area/ BSA (Vmax) 1.03 cm2/m2 LVOT Mean Yovany. 0.71 m/s ANY Mean Yovany. 1.89 cm2 LVOT Peak Grad 4.6 mmHg ANY Mean Yovany. Index 0.91 cm2/m2 LVOT Mean Grad 2.4 mmHg LVOT VTI 0.240 m LVOT Diam s 1.90 cm AoV Vmax 1.47 m/s Velocity Ratio 0.73 AoV Mean Yovany. 1.11 m/s AoV Peak Grad 8.6 mmHg LVOT SV 70.51 mL AoV Mean Grad 5.5 mmHg AoV VTI 0.323 m AoV Area VTI 2.19 cm2 AoV Area/ BSA (VTI) 1.05 cm/m2 Mitral Valve MV DT 165 (160-240 msec) MV PHT 48 msec MV Area PHT 4.60 cm2 MV VTI 0.245 m MV Area VTI 2.87 (4.0-6.0 cm2) Pulmonary Valve PV Vmax 1.01 (0.5-1.5 m/s) RVOT Peak Gr. 1.75 mmHg PV Peak Grad 4.1 mmHg RVOT Mean Gr. 0.95 mmHg PV Mean Grad 2.1 mmHg RVOT VTI 0.157 m PV VTI 0.235 m RVOT Vmax 0.66 m/s Tricuspid Valve TR Peak Grad 29.2 mmHg TR Vmax 2.71 m/s RA Pressure 3.00 mmHg RVSP (TR) 32.3 mmHg
== END 2023-02-07 12:07 ==
LOC: DI 11:48
PROVIDERS: PCP Physician Assistant Medical; Visit Provider Physician Assistant Medical
DX: R07.9 Chest pain, unspecified (principal)
CPT/HCPCS: 93306

== ENCOUNTER 2023-02-26 08:23 | Outpatient (CLI) | payer OTHER, SELFPAY ==
--- NOTE | 2023-02-26 08:15 | RT.EKG_ITS ---
APPROVED REPORT Exam: Resting ECG Reason for Exam: palpitaions Patient Location: O HR:78 bpm ECG Measurements Heart Rate 78 AXIS OK 188 P 18 QRSd 82 QRS -3 QT 354 T 17 QTc 404 Conclusion Sinus rhythm...normal P axis, V-rate 50- 99 Atrial premature complexes...SV complexes w/ short R-R intvls Otherwise normal ECG
== END 2023-02-26 08:24 | disposition home or self-care (01) ==
LOC: DI.CARD 08:25
PROVIDERS: PCP Physician Assistant Medical; Visit Provider Internal Medicine Cardiovascular Disease
DX: R00.2 Palpitations (principal); I49.1 Atrial premature depolarization
CPT/HCPCS: 93010

== ENCOUNTER → 2023-02-26 10:41 | Outpatient (BNVA) | payer OTHER, SELFPAY | PROVIDERS: PCP Physician Assistant Medical; Referring Provider Physician Assistant Medical; Visit Provider Internal Medicine Cardiovascular Disease | DX: I49.1 Atrial premature depolarization (principal); I10 Essential (primary) hypertension; R06.02 Shortness of breath; E66.9 Obesity, unspecified; G47.39 Other sleep apnea | CPT/HCPCS: 93005; 99203; 99214 ==

== ENCOUNTER 2023-06-05 09:36 | Emergency (ER) | payer OTHER, SELFPAY ==
[2023-06-05 09:41] VITALS: BP 143/90; PULSE 82; RESP 16; TEMP 36.9; O2SAT 98
[2023-06-05 09:44] VITALS: RESP 15
--- NOTE | 2023-06-05 10:15 | W.ED.GENAD ---
Discharge Plan Disposition Patient Disposition: Home Discharge Details Clinical Impression: Benign paroxysmal positional vertigo Primary Care Provider: Natty Wilson ED Provider: Amber Duran Home Meds and New Rx's Prescriptions: Continued amlodipine 5 MG tablet 2.5 mg PO DAILY metoprolol succinate 25 MG tablet extended release 24 hr 25 mg PO DAILY Qty: 30 Caltrate 600 plus D 600 mg-20 mcg (800 unit) tablet,chewable 1 tab PO DAILY aspirin 81 mg capsule 81 mg PO DAILY triamcinolone acetonide 0.1 % cream 1 applic topical DAILY simvastatin [Zocor] 20 mg tablet 20 mg PO DAILY esomeprazole magnesium 40 mg capsule,delayed release(DR/EC) 40 mg PO DAILY albuterol sulfate 90 mcg/actuation HFA aerosol inhaler 2 inh inhalation Q4H PRN Discharge Instructions Instructions: Benign Paroxysmal Positional Vertigo (ED) Additional Instructions: Take the meclizine 25 mg every 8 hours for the next several days to see if this will help break the vertigo. Please call your primary care doctor tomorrow for follow-up appointment for this week. Return to ED for any new focal neurologic deficits. Discharge Data Discharge Date/Time-TO BE ENTERED AT DEPARTURE: 06/05/23 17:46 Medical Decision Making Case discussed with Dr. Rea from radiology who advised MRI without contrast to ascertain whether the patient's had a stroke. Patient was updated on all of her test results including MRI. This is more likely a case of benign vertigo. She did not want to try Valium and promises to use meclizine 25 mg 3 times per day for 48 hours to see if this can break her symptoms. She will make an appointment with her PCP who can refer her to neurology and/or ENT. She has no tinnitus or hearing change. She felt much better on discharge and was sent home with her . Medical Records Medical records reviewed: Yes I reviewed the patient's medical records. Lab Data Lab results reviewed: Yes I reviewed the patient's lab results. Lab results narrative: CBC, Chem-20, and coags are all unremarkable. ECG Data Attestation: I personally reviewed and interpreted this ECG (s) as follows: (EKG: Normal sinus rhythm 70, PACs, likely quadrigeminy.) HPI General Date/Time Provider Initiated Documentation: 06/05/23 10:14. HPI Narrative: This 67-year-old female patient presents with a chief complaint of vertigo and its been ongoing for the past month. The patient states that when it started 1 month ago it was accompanied by nausea and vomiting. She went to see her primary care doc who gave her meclizine 25 mg. She stated the medicine made her fuzzy in the head and she was told to cut it down in half. She states either way it did not really help the dizziness. She has not been back in touch with her primary care doc since. Dizziness was a lot worse last night and this morning and she decided to come to the ED today. She lies in bed and does not move at all he tends to be better. Its not clear whether it completely resolves. It definitely is worsened by position change and she feels drunk when she is trying to walk. She states she typically has to hold onto things when she is walking around the house. Her drove her to the department today. She has had a headache although states this is not unusual. There is no change in her hearing and she denies tinnitus. She has no other focal neurologic changes. Patient states she had URI nausea and vomiting about a week ago but this is gone. He has no chest pain or difficulty breathing. There is no belly pain. There is been no head or neck trauma. Related Data Home Medications Medication Instructions Recorded Confirmed amlodipine 5 mg tablet 2.5 mg PO DAILY 01/05/14 06/05/23 metoprolol succinate 25 mg 25 mg PO DAILY #30 tab-caps 10/09/16 06/05/23 tablet,extended release 24 hr aspirin 81 mg capsule 81 mg PO DAILY 08/11/22 06/05/23 calcium carbonate 600 mg-vitamin 1 tab PO DAILY 08/11/22 06/05/23 D3 20 mcg (800 unit) chewable tablet (Caltrate 600 plus D) simvastatin 20 mg tablet (Zocor) 20 mg PO DAILY 08/11/22 06/05/23 triamcinolone acetonide 0.1 % 1 applic topical DAILY 08/11/22 06/05/23 topical cream albuterol sulfate 90 mcg/actuation 2 inh inhalation Q4H PRN 02/16/23 06/05/23 aerosol inhaler esomeprazole magnesium 40 mg 40 mg PO DAILY 02/16/23 06/05/23 capsule,delayed release Allergies Allergy/AdvReac Type Severity Reaction Status Date / Time lisinopril Allergy Intermediate Wheezing Verified 06/05/23 09:46 Sulfa (Sulfonamide Allergy Intermediate Hives, rash Verified 06/05/23 09:46 Antibiotics) General Stated Complaint: Dizzy/Sync HARI: 3 Review of Systems Constitutional Constitutional: Denies chills, Denies fever(s), Reports headache(s) and Denies weakness Eyes Eyes: Denies diplopia and Reports other (no redness) ENT Ears, Nose, Mouth, and Throat: Denies abnormal hearing, Reports vertigo, Denies otalgia, Reports headache(s), Denies nasal congestion, Denies nasal discharge, Denies neck pain and Denies sore throat Cardiovascular Cardiovascular: Denies chest pain, Denies palpitations and Denies dyspnea Respiratory Respiratory: Denies cough and Denies dyspnea Gastrointestinal Gastrointestinal: Denies abdominal pain, Denies diarrhea, Denies nausea and Denies vomiting Genitourinary Genitourinary: Denies dysuria Musculoskeletal Musculoskeletal: Denies myalgias, Denies muscle weakness, Denies neck pain, Denies numbness and Reports other (edema) Integumentary/Breasts Skin/Breast: Denies change in pigmentation and Denies rash Neurologic Neurologic: Reports as per HPI, Denies abnormal hearing, Denies abnormal speech, Reports vertigo, Reports headache(s), Denies localized weakness, Denies numbness, Denies other visual disturbances and Denies weakness Endocrine Endocrine: Denies palpitations PFSH All Active Problems (Updated 06/05/23 @ 17:37 by Amber Duran MD) Benign paroxysmal positional vertigo (Acute) Shortness of breath (Acute) Premature atrial contractions (Acute) HLD (hyperlipidemia) (Acute) Right knee sprain (Acute) Chest wall pain (Acute) Back pain (Acute) Hypertension, benign (Acute) Vertigo (Acute) Thyroid nodule (Acute) Cellulitis (Acute 07/29/14) Internal derangement of right knee (Acute 01/29/17) Primary osteoarthritis of right knee (Acute 12/04/16) Left knee DJD (Acute) Medical History Abdominal pain, epigastric Abnormal cardiovascular stress test Cervical lymphadenopathy Chest pain COVID-19 Dysphagia Fatty liver Fatty liver disease, nonalcoholic Fibroid uterus GERD (gastroesophageal reflux disease) Hiatal hernia History of total knee arthroplasty Hypertension Multiple thyroid nodules Obesity Osteoarthritis Palpitations Plantar fasciitis Prediabetes Surgical History Appendectomy Biopsy, Lymph Node (11/07/17) clinically suspicious lymphocytes Colonoscopy - [facility] [place] 2013 H/O arthroscopy of left knee H/O bilateral cataract extraction History of lumpectomy of right breast Ligation of fallopian tube Replacement of total knee joint Rt and Left Social History Smoking/Tobacco Use Status: Never Smoking risk assessment performed?: Yes Alcohol Intake: current Alcohol Intake frequency: a few times a week Drug use: Never Substance use type: does not use Housing: house What type of physical activity do you participate in: walking and swimming Duration: 45-60 minutes/day Frequency: 5-6 times per week Do you feel safe at home: Yes Do you feel safe in your relationship?: Yes Exam Const General: no acute distress, well developed, well groomed and not in acute distress Nutritional Appearance: well nourished Orientation: alert and oriented x3 HENMT Head: normocephalic and atraumatic Ears: external ears normal Mouth: oropharynx normal and moist mucous membranes Throat: posterior oropharynx normal Eyes Conjunctivae: conjunctivae normal Neck Neck: full ROM and supple Chest Chest: normal inspection of the chest Resp Effort & Inspection: normal respiratory effort Auscultation: clear to auscultation bilaterally Cardio Rate: regular rate Rhythm: regular rhythm Heart Sounds: no murmurs and no rubs GI Inspection: normal to inspection Palpation: soft, nontender and other (non distended) Auscultation: normal bowel sounds Skin General skin exam: no rashes or lesions noted and other (pink, warm, dry) Neuro General: patient alert, patient awake and patient oriented x3 Cranial Nerves: CN's II-XI intact bilaterally and other (Question vague vertical nystagmus and the patient looks up; this resolves a) Cognition: normal cognition Speech: speech normal Gait: normal gait (With holding onto stretcher) Motor: muscle tone normal throughout, strength 5/5 throughout and other (JONES) Sensory Exam: no sensory deficits noted Coordination: mfrhyh-py-ohej test normal and Romberg test normal Extrem General: normal to inspection, full ROM and pedal edema present Psych Mental Status: mental status grossly normal Speech and Movement: speech and movement normal Affect: normal affect Course Vital Signs Vital signs: Vital Signs Temperature 36.9 C 06/05/23 09:41 Pulse 82 06/05/23 09:41 Respiratory Rate 16 06/05/23 09:41 Blood Pressure 143/90 H 06/05/23 09:41 Pulse Oximetry 98 06/05/23 09:41 Temperature 36.9 C 06/05/23 09:41 Temperature Source Temporal Artery Scan 06/05/23 09:41 Pulse 82 06/05/23 09:41 Respiratory Rate 15 06/05/23 09:44 Respiratory Effort Normal 06/05/23 09:44 Respiratory Depth Normal 06/05/23 09:44 Respiratory Pattern Normal 06/05/23 09:44 Blood Pressure 143/90 H 06/05/23 09:41 Blood Pressure Position Sitting 06/05/23 09:41 Pulse Oximetry 98 06/05/23 09:41 Oxygen Delivery Method Room Air 06/05/23 09:41 Oxygen Flow Rate 0 06/05/23 09:41 Pain Level 0 06/05/23 09:41 PAWSS Have you Been Recently Intoxicated or Drunk Within the Last 30 days?: No Have you Ever Experienced Previous Episodes of Alcohol Withdrawal?: No Have you ever Experienced Withdrawal Seizures?: No Have you ever Experienced Delirium Tremens(DT)s?: No Have you ever undergone Alcohol Rehabilitation Treatment (i.e, inpt ot outpatient treatment programs)?: No Have you ever Experienced Blackouts?: No Have you ever Combined Alcohol with other Downers within the last 90 days?: No Result: 0
--- NOTE | 2023-06-05 10:30 | RT.EKG_ITS ---
APPROVED REPORT Exam: Resting ECG Reason for Exam: vertigo Patient Location: E HR:71 bpm ECG Measurements Heart Rate 71 AXIS WA 198 P 34 QRSd 84 QRS 17 QT 371 T 28 QTc 398 Conclusion Sinus rhythm...normal P axis, V-rate 60- 99 Atrial premature complexes...SV complexes w/ short R-R intvls quadrigeminy
--- NOTE | 2023-06-05 10:30 | DI.MRI_ITS ---
Exam(s) MR BRAIN WO EXAM: MR BRAIN WO CLINICAL HISTORY: Vertigo x1mo, HTN, hi chol, FMH CVA mom 50's TECHNIQUE: Multiplanar multisequence MRI of the brain was performed. COMPARISON: No exams were available for comparison FINDINGS: CEREBRAL PARENCHYMA: There is no evidence of intracranial hemorrhage, mass effect, or shift of midline structures. There are no extra-axial fluid collections. Ventricles are not enlarged or shifted. There is no significant focal signal abnormality in the cerebellar hemispheres nor within the rudy, m idbrain, and thalami. However, there are multiple foci of sub cm FLAIR bright signal abnormality evident in the Danay ventri cular white matter, not associated with hemorrhage, surrounding edema nor restricted diffusion and mo st probably consistent chronic small vessel ischemic changes. There is no significant focal signal abnormality evident on diffusion imaging to suggest acute ischem ic event. SWI: No evidence of microhemorrhages. PITUITARY GLAND: No mass nor parasellar abnormality. No obvious abnormality in the cavernous sinuses. FLOW VOIDS: The expected flow void are noted. No evidence of obvious aneurysm nor obvious vascular ma lformation. PARANASAL SINUSES: The visualized paranasal sinuses appear unremarkable. No obvious finding ORBITS: No obvious findings. IMPRESSION: There are multiple sub cm FLAIR bright foci of signal abnormality in the periventricular white matter bilaterally which are not associated with hemorrhage, surrounding edema, nor restricted diffusion mo st probably represent chronic small-vessel white matter ischemic changes. Other possibilities would be in the realm of inflammatory etiology versus is demyelinating disease. Called by myself to ER physician DATA REPOSITORY:
[2023-06-05] MEDS: Normal Saline 1,000 ML 1000 ML IV (11:45)
[2023-06-05 11:53] LABS: HCT 41.6 % (36.0-46.0); HGB 13.2 g/dL (11.2-15.7); MCH 27.2 pg (27.0-33.0); MCHC 31.7 % (32.0-36.0); MCV 86 fL (80-95); MPV 10.4 fL (8.0-11.0); Platelet Count 181 10^3/uL (130-400); RBC 4.86 10^6/uL (3.93-5.22); RDW-SD 43.8 fL; WBC 6.62 10^3/uL (4.4-10.8)
[2023-06-05 12:05] LABS: PTT Activated 20.7 sec (21.5-31.9); Prothrombin Time 10.1 sec (9.3-11.0)
[2023-06-05 12:08] LABS: ALT 24 U/L (14-59); AST 20 U/L (15-37); Albumin 3.6 g/dL (3.4-5.0); Alkaline Phosphatase 85 U/L (46-116); Anion Gap 6.5 mmol/L (3-11); BUN 14 mg/dL (7-18); Bilirubin, Total 0.3 mg/dL (0.2-1.0); CO2 29.5 mmol/L (21.0-32.0); CREATININE 0.8 mg/dL (0.55-1.02); Calcium 8.8 mg/dL (8.5-10.1); Chloride 106 mmol/L (98-107); Estimated GFR 79.71 (mL/min/1.73m2); Glucose 107 mg/dL (74-106); Magnesium 1.8 mg/dL (1.8-2.4); Potassium 4.5 mmol/L (3.5-5.1); Sodium 142 mmol/L (136-145); Total Protein 7.4 g/dL (6.4-8.2)
[2023-06-05 15:00] VITALS: BP 114/84; PULSE 69; RESP 16; O2SAT 97
== END 2023-06-05 17:46 | disposition home or self-care (01) ==
PROVIDERS: Emergency Provider Emergency Medicine; PCP Physician Assistant Medical
DX: H81.10 Benign paroxysmal vertigo, unspecified ear
CPT/HCPCS: 80053; 85027; 93005; 96360; 99284; 70551; 83735; 85610; 85730; 93010; J3490

== ENCOUNTER 2023-07-12 19:53 | Outpatient (REF) | payer OTHER, SELFPAY | END 2023-07-12 19:54 | disposition home or self-care (01) | LOC: NCHCN 19:53 | PROVIDERS: PCP Physician Assistant Medical; Visit Provider Nurse Practitioner Family | DX: R30.0 Dysuria (principal) | CPT/HCPCS: 87086 ==

== ENCOUNTER 2023-08-01 14:18 | Outpatient (REF) | payer OTHER, SELFPAY ==
[2023-08-01 20:27] LABS: Calculated LDL 86 mg/dL (<100); Cholesterol 151 mg/dL (<200); HDL Cholesterol 43 mg/dL (40-60); Triglyceride 114 mg/dL (<150)
[2023-08-01 20:28] LABS: Hemoglobin A1C 6.3 % (<5.7)
== END 2023-08-01 14:19 | disposition home or self-care (01) ==
LOC: NCHCN 14:18
PROVIDERS: PCP Physician Assistant Medical; Visit Provider Physician Assistant Medical
DX: R73.03 Prediabetes (principal); E78.5 Hyperlipidemia, unspecified
CPT/HCPCS: 80061; 83036

== ENCOUNTER → 2023-08-02 03:00 | Outpatient (CLI) | payer OTHER, SELFPAY ==
--- NOTE | 2023-08-02 08:15 | DI.US_ITS ---
Exam(s) US THYROID EXAM: US THYROID CLINICAL HISTORY: Assess for change,thyroid nodule, e04.1. TECHNIQUE: Ultrasound thyroid performed using standard protocol. COMPARISON: US US ECHOCARDIOGRAM from 02/07/2023 FINDINGS: Both thyroid lobes again exhibit normal size with the main findings again noted to be in the isthmus and junction of the right lobe and isthmus. There is a peanut shaped lobulated solid nodule expandin g the isthmus on the right side. Is difficult to determine if this is a single solid nodule or 2 con tiguous similar appearing nodules. I will classified as a single solid nodule TiRads characteristics of this nodule are as follows: Size: Measures 2.5 x 1.3 x 2.6 cm cm Composition: Solid-2 points Echogenicity: Isoechoic to surrounding parenchyma-1 point Shape: Wider than taller in the transverse plane-0 points Margin: Smooth- 0 points Echogenic Foci: Contains a single macrocalcification-1 point Total Points for this nodule: 4 ACR Ti-Rads Category: TR4 This nodule requires ultrasound-guided FNA. LYMPH NODES: There is no significant adenopathy. IMPRESSION: 1. Solid lobulated TR4 nodule in the right side of the isthmus with measurements as above. Ultrasoun d-guided FNA is recommended. 2. There is no significant lymphadenopathy. DATA REPOSITORY:
== END ==
PROVIDERS: PCP Physician Assistant Medical; Visit Provider Otolaryngology
DX: E04.1 Nontoxic single thyroid nodule (principal)
CPT/HCPCS: 76536

== ENCOUNTER → 2023-09-11 01:24 | Outpatient (CLI) | payer OTHER, SELFPAY ==
--- NOTE | 2023-09-11 08:00 | DI.US_ITS ---
Exam(s) US NEEDLE LOCAL OTHER WO RAD EXAM: thyroid nodules,ULTRASOUND GUIDED BX,E04.1 COMPARISON: No exams were available for comparison TECHNIQUE: Ultrasound performed using standard protocol. FINDINGS: Sonography was provided for Dr. Quijano during the performance of a ultrasound-guided thyroid biopsy. Please refer to the procedure report for complete details. DATA REPOSITORY:
--- NOTE | 2023-09-11 11:40 | PAPNONF_PTH ---
PATIENT: Arleth Harris LOC: [facility] U#:[id number] AGE/SX: 70/F ROOM: RE09/11/[address]: Washington Quijano MD : [id number] BED: DIS: SPEC #: [id number] RECD: 09/11/23 12:58 STATUS: KHARI REDell #: [id number] YSABEL: 09/11/23 11:[address]: Washington Quijano DEPT: [facility] Cytology RECD BY: Ivonne Taylor ENTERED: 09/11/23 13:00 SP TYPE: ISAEL BOSS DR: Natty Wilson Tissues: 1 - BODY FLUID CYTO-FINE NEEDLE ASPIRATE-[facility] Procedures: BODY FLUID CYTO-FINE NEEDLE ASPIRATE-[facility] Comments: [id number] (PATH FNA CONSULT) (REFRIGERATED)
--- NOTE | 2023-09-11 11:54 | W.PROCNOTE ---
Date of service: 09/11/23 Time of Service: 11:54 Procedure Note Date of procedure: 09/11/23 Procedure: Ultrasound-guided FNA, right thyroid nodule, pathology present Procedure Diagnosis: Right thyroid nodule meeting criteria for biopsy Procedure Indications: The patient has a right-sided thyroid nodule meeting criteria for biopsy. Options were explained to the patient regarding further management. She elected to undergo the procedure. Consent was filled out and signed prior to this procedure. Procedure Description: The patient was positioned in supine position with her neck slightly extended. Ultrasound was used to localize the thyroid nodule and the patient was prepped and draped in appropriate fashion. 1% lidocaine with 1/100,000 epinephrine was injected in the skin and subcutaneous tissues overlying the thyroid nodule. A 25-gauge needle was then passed repeatedly into the thyroid nodule. The aspirate was quite bloody, but there did appear to be several groups of follicular type cells when viewed under the microscope. Because of the amount of bloody aspirate, the decision was made not to continue to aspirate more material, assuming that we have enough aspirate in the bloody discharge to make a diagnosis. 2 additional passes were made for potential Afirma testing. A sterile dressing was applied after ensuring adequate hemostasis. The patient's vitals remained stable and she was able to ambulate afterwards without difficulty. She will remove the bandage today and not replace it. She will call with any signs of infection or any concerns. She will call if she does not hear from me within 1 week with regard to the biopsy results.
== END ==
PROVIDERS: PCP Physician Assistant Medical; Visit Provider Otolaryngology
DX: E04.1 Nontoxic single thyroid nodule (principal)
CPT/HCPCS: 10005; 76942; 88104

== ENCOUNTER 2023-09-21 16:38 | Outpatient (REF) | payer OTHER, SELFPAY ==
[2023-09-21 18:56] LABS: Anion Gap 7.4 mmol/L (3-11); BUN 12 mg/dL (7-18); CO2 27.6 mmol/L (21.0-32.0); CREATININE 0.8 mg/dL (0.55-1.02); Calcium 9.2 mg/dL (8.5-10.1); Chloride 104 mmol/L (98-107); Estimated GFR 79.22 (mL/min/1.73m2); Glucose 97 mg/dL (74-106); Potassium 4.4 mmol/L (3.5-5.1); Sodium 139 mmol/L (136-145)
== END 2023-09-21 16:39 | disposition home or self-care (01) ==
LOC: NCHCN 16:38
PROVIDERS: PCP Physician Assistant Medical; Visit Provider Physician Assistant Medical
DX: I10 Essential (primary) hypertension (principal)
CPT/HCPCS: 80048

== ENCOUNTER → 2024-04-17 08:52 | Outpatient (BNVA) | payer OTHER, SELFPAY | PROVIDERS: PCP Physician Assistant Medical; Referring Provider Physician Assistant Medical; Visit Provider Physical Therapy Assistant | DX: Z12.11 Encounter for screening for malignant neoplasm of colon (principal) ==

== ENCOUNTER 2024-05-05 07:20 | Day surgery (SDC) | payer OTHER, SELFPAY ==
--- NOTE | 2024-05-04 11:04 | W.PM.DSUDISC ---
Date of service: 05/05/24 Time of Service: 09:37 Discharge Plan Disposition Patient Disposition: Home Condition: Good Discharge Details Reason For Visit: screening colonoscopy Attending Provider: Shar Mcdonald Primary Care Provider: Natty Wilson Home Meds and New Rx's Prescriptions: Continued amlodipine 5 MG tablet 2.5 mg PO DAILY metoprolol succinate 25 MG tablet extended release 24 hr 25 mg PO DAILY Qty: 30 Caltrate 600 plus D 600 mg-20 mcg (800 unit) tablet,chewable 1 tab PO DAILY aspirin 81 mg capsule 81 mg PO DAILY triamcinolone acetonide 0.1 % cream 1 applic topical DAILY simvastatin [Zocor] 20 mg tablet 20 mg PO DAILY esomeprazole magnesium 40 mg capsule,delayed release(DR/EC) 40 mg PO DAILY albuterol sulfate 90 mcg/actuation HFA aerosol inhaler 2 inh inhalation Q4H PRN pantoprazole 40 mg tablet,delayed release (DR/EC) 40 mg PO DAILY Patient Comments: pt states not taking metformin 500 mg tablet extended release 24 hr 500 mg PO DAILY furosemide [Lasix] 20 mg tablet 20 mg PO DAILY Discontinued bisacodyl [Dulcolax (bisacodyl)] 5 mg tablet,delayed release (DR/EC) 5 mg PO ONCE Qty: 4 0RF Rx Instructions: Take per colonoscopy instructions provided by ordering providers office polyethylene glycol 3350 17 gram/dose powder 17 g PO ONCE Qty: 238 0RF Rx Instructions: Take per colonoscopy instructions provided by ordering providers office Discharge Instructions Additional Instructions: Arleth, we are able to complete your colonoscopy today without any difficulty. As you already know, you have diverticulosis. Otherwise, I did not see any signs of tumors, polyps, or anything worrisome. With a negative screening colonoscopy today you should consider another one in 10 years. 1. If tolerated, consume a soft, low fiber diet for 1-2 days. 2[address] Do not drive, drink alcohol, operate machinery, make critical decisions, or do activities that require coordination or balance for 24 hours. 3. Because air was put into your colon during the procedure, expelling air from your rectum (passing gas or farting) is normal. 4. You may not have a bowel movement for 1-3 days because of the colonoscopy prep. This is normal. 5. Go directly to the emergency room if you notice any of the following: Develop chills (warm to touch), or if you have a thermometer and your temperature is above 101 Difficulty breathing or difficultly swallowing Persistent vomiting Severe abdominal pain, other than gas cramps Severe chest pain Black, tarry stools Any bleeding ? exceeding one tablespoon 6. Call your physician if the site where your intravenous was started becomes red, swollen, painful, and warm to touch. 7. Your physician has reviewed your pre-procedure medications. Please continue to take those medications as previously ordered. You will be given specific information/education regarding any changes to your medications before leaving. Activity:: Activity as Tolerated Diet:: As Tolerated Discharge Orders Discharge Orders: Discharge Order (Routine); Ordered 05/04/24 Ordered By: Shar Mcdonald DS: Diagnosis Discharge Diagnosis (1) Screen for colon cancer: Status: Acute Asessment and Plan: Diverticulosis, otherwise negative screening colonoscopy
--- NOTE | 2024-05-04 11:07 | W.COLOREPORT ---
Date of service: 05/05/24 Time of Service: 09:38 Colonoscopy Report Date of procedure: 05/05/24 Pre-op diagnosis general: screening colonoscopy Post-op diagnosis procedure note: other (diverticulosis) Procedure: colonoscopy Surgeon: Shar Mcdonald Anesthesia Type: General:No Airway Estimated blood loss (mL): 0 Pathology: none sent Complications: None Disposition: same day Indications: Arleth is 68 years old and she needs her next screening colonoscopy Prep: Miralax/Dulcolax Procedure Start Time: 09:20 Procedure End Time: :29 Retraction Time: 5 Findings: Diverticulosis Procedure Description: After the induction of monitored anesthetic care, and with the patient in left lateral decubitus position, I began by performing an external anorectal exam.? Perineum and skin were normal, as was the anal verge.? There was no evidence of external hemorrhoids.? Next, I performed a digital rectal exam.? I did not appreciate any abnormal findings.? Next, I advanced a colonoscope into the rectal vault.? I performed retroflexion.? I this appeared normal.? Using insufflation, I then advanced the colonoscope beyond the rectal folds and into the sigmoid colon before advancing towards the cecum.? There is sigmoid and left-sided diverticulosis.? The scope was noted to be in the cecum by identification of the ileocecal valve and appendiceal orifice.? I then began withdrawing the colonoscope using repeated irrigation as necessary for full evaluation of the colonic mucosa. ?Once the scope was withdrawn to the level of the rectum, great care was taken to examine portions of the rectal folds.? Finally, the scope was withdrawn and the patient was brought to the same-day surgery recovery unit as the anesthetic wore off. ?The findings and instructions were shared with the patient prior to discharge. Fletcher Bowel Prep Fletcher Bowel Prep Right Colon: 3 Left Colon: 3 Transverse Colon: 3 Total Score: 9
[2024-05-05 07:24] VITALS: BP 149/83; PULSE 60; RESP 16; TEMP 35.9; O2SAT 99
--- NOTE | 2024-05-05 08:48 | W.ANESPRE ---
General Info Date of Service Date Performed: 05/05/24 Height: 5 ft 4 in Weight: 110.6 kg Body Mass Index (BMI): 41.8 Surgical Procedure: Operation Date: 05/05/24 09:05 Proposed Procedure Side Surgeon sam Mcdonald MD Meds Allergies and Home Medications Allergies Allergy/AdvReac Type Severity Reaction Status Date / Time lisinopril Allergy Intermediate Wheezing Verified 05/05/24 07:37 Sulfa (Sulfonamide Allergy Intermediate Hives, rash Verified 05/05/24 07:37 Antibiotics) Home Medication Medication Instructions Recorded amlodipine 5 mg tablet 2.5 mg PO DAILY 01/05/14 metoprolol succinate 25 mg 25 mg PO DAILY #30 tab-caps 10/09/16 tablet,extended release 24 hr aspirin 81 mg capsule 81 mg PO DAILY 08/11/22 calcium carbonate 600 mg-vitamin 1 tab PO DAILY 08/11/22 D3 20 mcg (800 unit) chewable tablet (Caltrate 600 plus D) simvastatin 20 mg tablet (Zocor) 20 mg PO DAILY 08/11/22 triamcinolone acetonide 0.1 % 1 applic topical DAILY 08/11/22 topical cream albuterol sulfate 90 mcg/actuation 2 inh inhalation Q4H PRN 02/16/23 aerosol inhaler esomeprazole magnesium 40 mg 40 mg PO DAILY 02/16/23 capsule,delayed release furosemide 20 mg tablet (Lasix) 20 mg PO DAILY 02/04/24 metformin 500 mg tablet,extended 500 mg PO DAILY 02/04/24 release 24 hr pantoprazole 40 mg tablet,delayed 40 mg PO DAILY 02/04/24 release Current Visit Medications: Current Medications Generic Name Dose Route Start Last Admin Trade Name Yovannyq PRN Reason Stop Dose Admin Hyoscyamine Sulfate 0.125 mg 05/04/24 11:08 Hyoscyamine 0.125 Mg Sl/Oral/Chew SL 06/03/24 11:07 DIRECTED PRN Ringer's Solution 1,000 mls @ 80 mls/hr 05/05/24 06:00 IV 05/05/24 23:59 INFUSION KARLENE IV Miscellaneous Supplies 1 each 05/05/24 06:00 Iv Access IV 05/05/24 23:59 DIRECTED KARLENE Ondansetron HCl 4 mg 05/04/24 11:08 Ondansetron 4 Mg/2 Ml Vial IVP 06/03/24 11:07 Q4H PRN PRN Nausea / Vomiting Sodium Chloride 0 ml 05/05/24 06:00 Normal Saline Flush 10 Ml Syr IV 05/05/24 23:59 PRN PRN Sodium Chloride 0 ml 05/05/24 06:00 Normal Saline 10 Ml Vial IJ 05/05/24 23:59 DIRECTED PRN Sterile Water 0 ml 05/05/24 06:00 Water,Injection,Sterile 10 Ml Vial IJ 05/05/24 23:59 DIRECTED PRN PFSH Active Problems Active Problems: Problem Status Onset Code Screen for colon cancer Z12.11 Benign paroxysmal positional vertigo of right ear H81.11 Shortness of breath R06.02 Premature atrial contractions I49.1 HLD (hyperlipidemia) E78.5 Right knee sprain S83.91XA Chest wall pain R07.89 Back pain M54.9 Hypertension, benign I10 Vertigo R42 Thyroid nodule E04.1 Cellulitis 07/29/14 L03.90 Internal derangement of right knee 01/29/17 M23.91 Primary osteoarthritis of right knee 12/04/16 M17.11 Left knee DJD M17.9 Medical History Medical History Abdominal pain, epigastric Abnormal cardiovascular stress test Cervical lymphadenopathy Chest pain COVID-19 Dysphagia Fatty liver Fatty liver disease, nonalcoholic Fibroid uterus GERD (gastroesophageal reflux disease) Hiatal hernia History of total knee arthroplasty Hypertension Multiple thyroid nodules Obesity Osteoarthritis Palpitations Plantar fasciitis Prediabetes Surgical History Surgical History Appendectomy Biopsy, Lymph Node (11/07/17) clinically suspicious lymphocytes Colonoscopy - MAC 2013 H/O arthroscopy of left knee H/O bilateral cataract extraction History of lumpectomy of right breast Ligation of fallopian tube Replacement of total knee joint Rt and Left Tobacco Smoking/Tobacco Use Status: Never Alcohol Alcohol Intake: current Alcohol intake frequency: a few times a week Substance Use Substance use: Never Substance use type: does not use Vital Signs and Lab Results Vital Signs Most Recent Vital Signs in EMR: Most Recent Vital Signs Temp Pulse Resp BP Pulse Ox 35.9 C L 60 16 149/83 H 99 05/05/24 07:24 05/05/24 07:24 05/05/24 07:24 05/05/24 07:24 05/05/24 07:24 Lab Results Blood Type / Crossmatch: No Data to Display Complete Blood Count: No Data to Display Complete Metabolic Panel: No Data to Display Liver Function Panel: No Data to Display Coagulation Panel: No Data to Display Cardiac Panel: No Data to Display Arterial Blood Gas: No Data to Display Venous Blood Gas: No Data to Display Pancreas Panel: No Data to Display Thyroid Panel: No Data to Display Infectious Disease: No Data to Display Blood Cultures: No Data to Display Toxicology Panel: No Data to Display Imaging and Studies Imaging and Studies Study information below may be from another EMR and interpreted by another provider. Please see original notes in EMR for more complete details. EKG Summary: Reviewed Stress Test Summary: Reviewed Anesthesia Assessment and Plan Anesthesia History Personal History: No History of Anesthesia Complications Family History: No Family History of Anesthesia Complications Exercise Tolerance Exercise Tolerance: Metabolic Equivalents>4 Pertinent Negatives Pertinent Negatives: No Symptoms of GERD Cardiac & Pulmonary Exam Cardiac Exam: Normal S1/S2 Heart Sounds Pulmonary Exam: Clear Bilateral Breath Sounds Implantable Cardiac Device Does patient have a Pacemaker or an ICD?: No Airway Exam Known Difficult Airway: No Mallampati Class: 3 Mouth Opening: Normal (> 3cm) Thyromental Distance: Greater than 3 cm Neck Range of Motion: Full ROM Neck Circumference: Normal Teeth Condition: Normal Dentition ASA Classification ASA Score: ASA 3 Emergency Case?: No NPO Status NPO Status: NPO Clears >2 hours, Solids >8 hours Anesthesia Plan Resuscitation Status: Full Code Anesthesia Technique: General Anesthesia Airway Planned: Natural Airway Monitors Used: Standard Monitors
[2024-05-05 08:50] VITALS: BMI 41.8
[2024-05-05] MEDS: Lactated Ringers 1,000 ML 80 ML IV (09:11)
--- NOTE | 2024-05-05 09:15 | W.ANESVAS ---
Midline Placement Date Performed: 05/05/24 Procedure Time: 08:50 Requesting Provider: Israel Singleton Procedure Location: Day Surgery Unit Sedation Given (Indicate Dose Given): No Sedation given Patient Mental Status: Awake Sterility: Hand Hygiene, Surgical Cap and Chlorhexidine Laterality: Left Insertion Site: Brachial Midline Device: PowerGlide Pro 18G Catheter Length: 10 cm Midline Procedure Procedure: 1% Lidocaine to skin and subcutaneous tissue with 25g needle and Catheter placed without resistance Dressing: Tegaderm Applied Blood Return: Present Flushes: Easily Ultrasound: Sterile probe cover and gel used Ultrasound Image Saved?: Yes Number of Attempts (See previous attempts in note section): 3 Procedure Tolerated: No Complications Procedure Outcome: Successful Procedure Comment:: two attempts on right arm without success. Performed By: Derek Whaley
[2024-05-05 09:41] VITALS: BP 113/69; PULSE 80; RESP 16; TEMP 36; O2SAT 97
[2024-05-05 10:14] VITALS: BP 113/64; PULSE 60; RESP 16; TEMP 36.2; O2SAT 96
--- NOTE | 2024-05-05 13:34 | W.ANESPOSTOP ---
Postoperative Evaluation Date, Time and Location Date Performed: 05/05/24 Time Performed: 10:14 Patient Location: Day Surgery Unit Vital Signs Most Recent Imported Vital Signs: Most Recent Vital Signs Temp Pulse Resp BP Pulse Ox 36.2 C L 60 16 113/64 96 05/05/24 10:14 05/05/24 10:14 05/05/24 10:14 05/05/24 10:14 05/05/24 10:14 Pain Score Most Recent Pain Score: Most Recent Pain Score Pain Level 0 05/05/24 10:14 Assessment Mental Status: Awake (Alert & Oriented to Patient Baseline) Airway and Respiratory Function: Patent airway with normal (patient baseline) respiratory exam Cardiovascular Function: Hemodynamically Stable Hydration Status: Adequately Hydrated Nausea & Vomiting: No Nausea or Vomiting Pain: Pt. Denies Any Pain Peripheral Nerve Block: Patient did not receive a nerve block
== END 2024-05-05 10:21 | disposition home or self-care (01) ==
LOC: SUR 07:20
PROVIDERS: PCP Physician Assistant Medical; Visit Provider Surgery
PROC: 0DJD8ZZ Inspection of Lower Intestinal Tract, Via Natural or Artificial Opening Endoscopic (ICD-10-PCS; CPT 45378; principal; 2024-05-05 09:00)
DX: Z12.11 Encounter for screening for malignant neoplasm of colon (principal); K57.30 Diverticulosis of large intestine without perforation or abscess without bleeding
CPT/HCPCS: G0121; 76942; J2371; J2704

== ENCOUNTER 2024-07-07 22:19 | Outpatient (REF) | payer OTHER, SELFPAY ==
[2024-07-07 16:35] LABS: ALT 21 U/L (14-59); AST 16 U/L (15-37); Albumin 3.6 g/dL (3.4-5.0); Alkaline Phosphatase 91 U/L (46-116); Anion Gap 7.4 mmol/L (3-11); BUN 11 mg/dL (7-18); CO2 29.6 mmol/L (21.0-32.0); CREATININE 0.9 mg/dL (0.55-1.02); Calcium 8.7 mg/dL (8.5-10.1); Calculated LDL 34 mg/dL (<100); Chloride 105 mmol/L (98-107); Cholesterol 106 mg/dL (<200); Estimated GFR 68.77 (mL/min/1.73m2); Glucose 108 mg/dL (74-106); HDL Cholesterol 46 mg/dL (40-60); Potassium 4.6 mmol/L (3.5-5.1); Sodium 142 mmol/L (136-145); Total Protein 7.3 g/dL (6.4-8.2); Triglyceride 132 mg/dL (<150)
[2024-07-07 18:29] LABS: Hemoglobin A1C 6.1 % (<5.7)
== END 2024-07-07 22:20 | disposition home or self-care (01) ==
LOC: NCHCN 22:19
PROVIDERS: PCP Physician Assistant Medical; Visit Provider Physician Assistant Medical
DX: I10 Essential (primary) hypertension (principal); E78.5 Hyperlipidemia, unspecified; R73.03 Prediabetes
CPT/HCPCS: 80053; 80061; 83036

== ENCOUNTER 2024-07-17 02:39 | Outpatient (CLI) | payer OTHER, SELFPAY ==
--- NOTE | 2024-07-17 | DI.DEXA_ITS ---
Exam(s) XR DEXA BONE DENSITY W/WO PAYAL EXAM: XR DEXA BONE DENSITY W/WO PAYAL CLINICAL HISTORY: SCREENING FOR OSTEOPOROSIS, Z78.0 TECHNIQUE: COMPARISON: DX DEXA BONE DENSITY WITH PAYAL from 08/06/2014 FINDINGS: Lateral Spine Image: Unremarkable. No compression deformities identified. Left hip: Total T-Score: 0.7. This compares to 1.0 on the prior examination. Total Z-Score: 2.2 T- and Z-scores: Within normal limits. Lumbar Spine: Total T-Score: 0.4. This compares to 0.8 on the prior examination. Total Z-Score: 2.6 T- and Z-scores: Within normal limits. IMPRESSION: No evidence of osteoporosis.
--- NOTE | 2024-07-17 | DI.MAMMO_ITS ---
Exam(s) MAMMO SCREENING EXAM: MAMMO SCREENING CLINICAL HISTORY: SCREENING, Z12.31 TECHNIQUE: Mammograms were interpreted according to the usual protocol including computer analysis w [employer] CAD system, tomosynthesis and C-view imaging. COMPARISON: 2013 through 2021 FINDINGS: The breasts are composed of scattered fibroglandular densities, Breast Density category B. No suspicious masses or suspicious microcalcifications are seen. No skin thickening or abnormal axillary lymph nodes are seen. There has been no significant change from prior exams. IMPRESSION: BI-RADS Category 1, Negative mammogram Yearly screening mammography is recommended. Breast Density - Category B, scattered fibroglandular densities. A negative radiographic report should not delay biopsy if a dominant or clinically suspicious mass is present. Up to ten percent of cancers are not identified on mammography. A negative report may reinforce clinical impression. Adenosis and dense breasts may obscure an underlying neoplasm. False positive reports average 6 to 10%. Patient will receive a letter notifying them of these results.
== END 2024-07-17 02:59 ==
LOC: DI 02:39
PROVIDERS: PCP Physician Assistant Medical; Visit Provider Physician Assistant Medical
DX: Z78.0 Asymptomatic menopausal state (principal); Z12.31 Encounter for screening mammogram for malignant neoplasm of breast; Z13.820 Encounter for screening for osteoporosis
CPT/HCPCS: 77063; 77067; 77080

== ENCOUNTER 2024-07-31 02:37 | Outpatient (CLI) | payer OTHER, SELFPAY ==
--- NOTE | 2024-07-31 08:00 | DI.US_ITS ---
Exam(s) US THYROID EXAM: US THYROID CLINICAL HISTORY: Assess stability, FNA benign,F/U THYROID NODULES,E04.2. TECHNIQUE: Ultrasound thyroid performed using standard protocol. COMPARISON: US US THYROID from 08/02/2023 FINDINGS: ISTHMUS: There is again seen a hypoechoic solid bilobed nodule in the isthmus. It measures 2.4 x 1.3 x 2.6 cm. This compares to 2.5 x 1.3 x 2.6 cm on the prior examination. No echogenic foci are seen . There are smooth margins. This is a TI rads level 4 nodule. Biopsy of this nodule was performed on 09/11/2023. RIGHT LOBE: Size: 3.3 x 1.5 x 1.4 cm Echogenicity: Normal. Vascularity: Normal. Nodules: None. LEFT LOBE: Size: 4.0 x 1.4 x 1.4 cm Echogenicity: Normal. Vascularity: Normal. Nodules: None. OTHER FINDINGS: None. IMPRESSION: Stable appearance of the nodule in the isthmus. The nodule was biopsied on 09/11/2023. DATA REPOSITORY:
== END 2024-07-31 02:57 ==
LOC: DI 02:37
PROVIDERS: PCP Physician Assistant Medical; Visit Provider Otolaryngology
DX: E04.2 Nontoxic multinodular goiter (principal)
CPT/HCPCS: 76536

== ENCOUNTER 2024-11-03 19:33 | Emergency (ER) | payer OTHER, SELFPAY ==
[2024-11-03] VITALS (30 sets, daily range): BP systolic 97–142; BP diastolic 64–92; PULSE 67–125; RESP 15–30; TEMP 36.7; O2SAT 87–100
--- NOTE | 2024-11-03 19:30 | RT.EKG_ITS ---
APPROVED REPORT Exam: Resting ECG Reason for Exam: chest pain Patient Location: E HR:88 bpm ECG Measurements Heart Rate 88 AXIS MI 180 P 44 QRSd 78 QRS 16 QT 358 T 25 QTc 421 Conclusion Sinus rhythm...normal P axis, V-rate 60- 99 Atrial premature complexes...SV complexes w/ short R-R intvls
--- NOTE | 2024-11-03 19:44 | W.ED.GENAD ---
Discharge Plan Disposition Patient Disposition: Admit to [facility] Condition: Serious Condition: Serious Discharge Details Chief Complaint: Chest Pain Clinical Impression: Non-ST elevation IL (NSTEMI) Primary Care Provider: Natty Wilson ED Provider: Faizan Dyson Home Meds and New Rx's Prescriptions: No Action amlodipine 5 MG tablet 2.5 mg PO DAILY metoprolol succinate 25 MG tablet extended release 24 hr 25 mg PO DAILY Qty: 30 Caltrate 600 plus D 600 mg-20 mcg (800 unit) tablet,chewable 1 tab PO DAILY aspirin 81 mg capsule 81 mg PO DAILY triamcinolone acetonide 0.1 % cream 1 applic topical DAILY simvastatin [Zocor] 20 mg tablet 20 mg PO DAILY esomeprazole magnesium 40 mg capsule,delayed release(DR/EC) 40 mg PO DAILY albuterol sulfate 90 mcg/actuation HFA aerosol inhaler 2 inh inhalation Q4H PRN metformin 500 mg tablet extended release 24 hr 500 mg PO DAILY furosemide [Lasix] 20 mg tablet 20 mg PO DAILY HPI General Mode of arrival: ambulatory. Date/Time Provider Initiated Documentation: 11/03/24 19:34. Limitations to Documentation: no limitations. Information obtained by: patient. History of Present Illness 69 year old F presents to the emergency department with the chief complaint of chest pain, described as moderate, Quality is described as aching, and is localized to the chest. Patient reports no radiation. Patient started experiencing this hour(s) (2.5) and it has been constant. No relieving factors improve symptom(s), Patient notes no other symptoms.. Patient did receive the following treatments prior to arrival, none Related Data Home Medications ?Medication ?Instructions ?Recorded ?Confirmed amlodipine 5 mg tablet 2.5 mg PO DAILY 01/05/14 11/03/24 metoprolol succinate 25 mg 25 mg PO DAILY #30 tab-caps 10/09/16 11/03/24 tablet,extended release 24 hr aspirin 81 mg capsule 81 mg PO DAILY 08/11/22 11/03/24 calcium 600 mg (as carbonate)-vit 1 tab PO DAILY 08/11/22 11/03/24 D3 20 mcg (800 unit) chewable tablet (Caltrate plus D) simvastatin 20 mg tablet (Zocor) 20 mg PO DAILY 08/11/22 11/03/24 triamcinolone acetonide 0.1 % 1 applic topical DAILY 08/11/22 11/03/24 topical cream albuterol sulfate 90 mcg/actuation 2 inh inhalation Q4H PRN 02/16/23 11/03/24 aerosol inhaler esomeprazole magnesium 40 mg 40 mg PO DAILY 02/16/23 11/03/24 capsule,delayed release furosemide 20 mg tablet (Lasix) 20 mg PO DAILY 02/04/24 11/03/24 metformin 500 mg tablet,extended 500 mg PO DAILY 02/04/24 11/03/24 release 24 hr Allergies Allergy/AdvReac Type Severity Reaction Status Date / Time lisinopril Allergy Intermediate Wheezing Verified 11/03/24 19:41 Sulfa (Sulfonamide Allergy Intermediate Hives, rash Verified 11/03/24 19:41 Antibiotics) General Stated Complaint: Chest Pain HARI: 3 Review of Systems All systems reviewed & are unremarkable except as noted in HPI and below Constitutional Constitutional: Denies chills, Denies fever(s) and Denies weakness Cardiovascular Cardiovascular: Reports chest pain and Reports dyspnea Respiratory Respiratory: Denies cough and Reports dyspnea Gastrointestinal Gastrointestinal: Denies abdominal pain, Denies nausea and Denies vomiting Musculoskeletal Musculoskeletal: Denies joint swelling Neurologic Neurologic: Denies weakness Exam Const General: no acute distress Orientation: alert HENIA Head: normal to inspection Ears: external ears normal General nose exam: external nose normal Mouth: moist mucous membranes Eyes General: appearance normal, both eyes and all related structures Neck Neck: normal visual inspection Resp Effort & Inspection: normal respiratory effort and able to speak in complete sentences Auscultation: crackles Cardio Jugular venous pressure: no JVD Rate: regular rate Heart Sounds: no murmurs GI Palpation: soft and nontender Skin General skin exam: no rashes or lesions noted Neuro General: patient alert and patient oriented x3 Course Vital Signs Vital signs: Vital Signs Temperature 36.7 C 11/03/24 19:35 Pulse 67 11/03/24 19:35 Respiratory Rate 15 11/03/24 19:35 Blood Pressure 127/80 11/03/24 19:35 Pulse Oximetry 92 11/03/24 19:35 Temperature 36.7 C 11/03/24 19:35 Temperature Source Tympanic 11/03/24 19:35 Pulse 67 11/03/24 19:35 Respiratory Rate 15 11/03/24 19:35 Blood Pressure 127/80 11/03/24 19:35 Blood Pressure Position Sitting 11/03/24 19:35 Pulse Oximetry 92 11/03/24 19:35 Oxygen Delivery Method Room Air 11/03/24 19:35 Oxygen Flow Rate 0 11/03/24 19:35 Pain Level 8 11/03/24 19:35 Medical Decision Making 69-year-old female with a history of hypertension, GERD, who comes in with chest pressure and shortness of breath after having an argument verbally with her son-in-law. She says prior to this she felt well. She says that her symptoms are improving since being here. Has a very mild 2 out of 10 chest pressure currently. She is well-appearing in no distress. She does have crackles at the bases bilaterally and on bedside ultrasound does appear to have B-lines bilaterally in her lungs. No pericardial effusion, appears to have slight decreased ejection fraction. She is prescribed furosemide daily but has not been taking this for weeks for unclear reason. Suspect this could be anxiety related but given her lung exam findings we will proceed with CBC, CMP, troponins, chest x-ray and reassess. Will give a dose of Lasix and reassess. She has no tearing back pain and equal peripheral pulses so doubt dissection. She has no evidence of DVT on exam and no calf tenderness and her lung exam findings are more consistent with CHF than PE. troponin 1430, patient stable, asa, plavix and heparin ordered. [place] [facility] [place]. Given this occurred with a verbal argument with her family member this could be Takotsubo's but will treat as an NSTEMI. Patient stable, second troponin over 1999. X-ray read as consolidation in the left lower lobe consistent with pneumonia. Patient has a chronic dry cough has not worsened recently. Will order procalcitonin and blood cultures, unclear if this is truly pneumonia or not. Spoke with groover runner at [facility] who reviewed the case and accepts to their facility under Dr. Cai so they cannot take her until tomorrow. They did agree with the heparin, aspirin and Plavix. Discussed with Dr. Crowley who will plan to admit the patient until he can be transferred to [facility]. Differential Diagnosis Differential Diagnosis: nstemi, pe, anxiety, CHF. Medical Records Medical records reviewed: Yes I reviewed the patient's medical records. Imaging Data Radiologic Study: Attestation: I personally reviewed and interpreted this imaging study as follows: Imaging: X-Ray Radiologist's impression: COMPARISON: CT CHEST PE CTA 01/24/2023 3:41 PM FINDINGS: Lungs: Consolidation in the left lower lobe consistent with pneumonia. Pleural spaces: Unremarkable. No pleural effusion. No pneumothorax. Heart/Mediastinum: Unremarkable. No cardiomegaly. Bones/joints: Unremarkable. IMPRESSION: Consolidation in the left lower lobe consistent with pneumonia. Lab Data Lab results reviewed: Yes I reviewed the patient's lab results. ECG Data Attestation: I personally reviewed and interpreted this ECG (s) as follows: Prior ECG tracings: available for review Interpretation: Sinus rhythm, atrial premature complexes, rate of 88, CA 180, no STEMI Quality:SDOH Health Related Social Needs: No Data to Display Critical Care Time Critical Care Time Critical Care Time: Yes Total Critical Care Time: 45 (minutes) Attestation: Time spent on frequent reassessments and hemodynamic monitoring, lab review, initiating IV heparin bolus and infusion for patient with a NSTEMI and potential to deteriorate at any time. PFSH All Active Problems (Updated 11/03/24 @ 20:56 by Faizan Dyson MD) Non-ST elevation IL (NSTEMI) (Acute) Benign paroxysmal positional vertigo of right ear (Acute) Shortness of breath (Acute) Premature atrial contractions (Acute) HLD (hyperlipidemia) (Acute) Right knee sprain (Acute) Chest wall pain (Acute) Back pain (Acute) Hypertension, benign (Acute) Vertigo (Acute) Thyroid nodule (Acute) Cellulitis (Acute 07/29/14) Internal derangement of right knee (Acute 01/29/17) Primary osteoarthritis of right knee (Acute 12/04/16) Left knee DJD (Acute) Medical History (Updated 11/03/24 @ 20:56 by Faizan Dyson MD) Fatty liver Multiple thyroid nodules Abnormal cardiovascular stress test Dysphagia Plantar fasciitis Prediabetes Abdominal pain, epigastric Palpitations Chest pain COVID-19 Obesity Hiatal hernia Hypertension GERD (gastroesophageal reflux disease) History of total knee arthroplasty Osteoarthritis Cervical lymphadenopathy Fibroid uterus Fatty liver disease, nonalcoholic Surgical History (Updated 05/06/24 @ 14:31 by Nannette Shipley) H/O bilateral cataract extraction History of lumpectomy of right breast H/O arthroscopy of left knee Ligation of fallopian tube Replacement of total knee joint Rt and Left Colonoscopy - MAC (~04/2024) 2014 Biopsy, Lymph Node (11/07/17) clinically suspicious lymphocytes Appendectomy Social History Smoking/Tobacco Use Status: Never Smoking risk assessment performed?: Yes Alcohol Intake: current Alcohol Intake frequency: a few times a week Drug use: Never Substance use type: does not use Housing: house What type of physical activity do you participate in: walking and swimming Duration: 45-60 minutes/day Frequency: 5-6 times per week Do you feel safe at home: Yes Do you feel safe in your relationship?: Yes POCUS Exam (ED) Limited Cardiac Exam REASON FOR EXAM: Dyspnea VISUALIZED STRUCTURES: Left ventricle and Right ventricle VIEW OBTAINED: Parasternal long-axis PERTINENT FINDINGS/IMPRESSION: No pericardial effusion DIFFERENTIAL DIAGNOSES: appears to have mild decreased EF Exam complete Limited Thoracic Lung Exam REASON FOR EXAM: Shortness ofBreath VISUALIZED STRUCTURES: right anterior and left anterior PERTINENT FINDINGS/IMPRESSION: B-lines/left side and B-lines/right side Exam complete
[2024-11-03 20:03] LABS: Abs Immature Grans 0.04 10^3/uL (0.0-0.06); Absolute Basophil Count 0.04 10^3/uL (0.0-0.2); Absolute Eosinophil Count 0.03 10^3/uL (0.0-0.7); Absolute Lymphocyte Count 2.09 10^3/uL (1.2-3.4); Absolute Monocyte Count 0.74 10^3/uL (0.1-0.8); Absolute Neutrophil Count 8.21 10^3/uL (1.2-6.7); Basophils % 0.4 %; Eosinophils % 0.3 %; HCT 43.4 % (36.0-46.0); HGB 13.6 g/dL (11.2-15.7); Immature Grans % 0.4 %; Lymphocytes % 18.7 %; MCH 27.6 pg (27.0-33.0); MCHC 31.3 % (32.0-36.0); MCV 88 fL (80-95); MPV 9.3 fL (8.0-11.0); Monocytes % 6.6 %; Neutrophils % 73.6 %; Platelet Count 335 10^3/uL (130-400); RBC 4.92 10^6/uL (3.93-5.22); RDW 13.8 % (11.7-14.6); RDW-SD 44.4 fL; WBC 11.15 10^3/uL (4.4-10.8)
[2024-11-03] MEDS: Furosemide 20 MG/2 ML VIAL IVP (20:15)
[2024-11-03 20:24] LABS: ALT 26 U/L (14-59); AST 25 U/L (15-37); Albumin 4.2 g/dL (3.4-5.0); Alkaline Phosphatase 95 U/L (46-116); Anion Gap 11.9 mmol/L (3-11); BUN 13 mg/dL (7-18); Bilirubin, Total 0.34 mg/dL (0.2-1.0); CO2 28.1 mmol/L (21.0-32.0); Chloride 102 mmol/L (98-107); Estimated GFR 60.23 (mL/min/1.73m2); Glucose 118 mg/dL (74-106); Lipase 8 U/L (<78); Magnesium 1.8 mg/dL (1.8-2.4); NT-proBNP 604 pg/mL (<300); Potassium 4.2 mmol/L (3.5-5.1); Sodium 142 mmol/L (136-145); Total Protein 8.4 g/dL (6.4-8.2)
[2024-11-03 20:26] LABS: Troponin I 1430 ng/L (<or=51)
--- NOTE | 2024-11-03 20:35 | DI.RAD_ITS ---
Exam(s) XR CHEST 2V PA LATERAL EXAM: XR CHEST 2V PA LATERAL CLINICAL HISTORY: shortness of breath. TECHNIQUE: 2D digital imaging was performed. COMPARISON: CR,XR XR PORTABLE CHEST AP from 12/31/[address] CHEST PE CTA from 01/24/2023 FINDINGS: 2 views: Heart size is normal. The upper mediastinum is not widened. There is a prominent hiatal hernia retrocardiac region. Also mild increased markings in both lung ba ses. No pleural effusions evident. No pneumothorax. The right-side pleural effusion which was evid ent on CT scan of 01/24/2023 is not seen on today's images. IMPRESSION: Large retrocardiac cardiac hiatal hernia, as also seen on CT scan 01/24/2023. Mild infiltrate both l ower lobes. No pleural effusions. DATA REPOSITORY: RADIATION DOSE DELIVERED:
[2024-11-03] MEDS: Aspirin 81 MG CHEW 324 MG CH (20:45)
[2024-11-03] MEDS: Clopidogrel 300 MG TAB PO (20:46)
[2024-11-03] MEDS: Heparin in 0.45% NaCl 25,000 UNIT/250 ML BAG 10 UNIT IVINF (20:51)
[2024-11-03 21:25] LABS: Troponin I 2655 ng/L (<or=51)
--- NOTE | 2024-11-03 21:37 | DI.VRAD_ITS ---
PROCEDURE INFORMATION: Exam: XR Chest Exam date and time: 11/03/2024 8:21 PM Age: 69 years old Clinical indication: Chest pressure; Patient HX: Shortness of breath, chest pain TECHNIQUE: Imaging protocol: Radiologic exam of the chest. Views: 2 views. COMPARISON: CT CHEST PE CTA 01/24/2023 3:41 PM FINDINGS: Lungs: Consolidation in the left lower lobe consistent with pneumonia. Pleural spaces: Unremarkable. No pleural effusion. No pneumothorax. Heart/Mediastinum: Unremarkable. No cardiomegaly. Bones/joints: Unremarkable. IMPRESSION: Consolidation in the left lower lobe consistent with pneumonia. Dictated and Authenticated by: Rosina Harman MD. Ordering:MATTEO Gloria MD
--- NOTE | 2024-11-03 22:34 | HPE_ITS ---
Date of service: 11/03/24 Time of Service: 22:34 COUNTS INCLUDE 234 BEDS AT THE [facility] All Active Problems (Updated 11/03/24 @ 20:56 by Faizan Dyson MD) Non-ST elevation SC (NSTEMI) (Acute) Benign paroxysmal positional vertigo of right ear (Acute) Shortness of breath (Acute) Premature atrial contractions (Acute) HLD (hyperlipidemia) (Acute) Right knee sprain (Acute) Chest wall pain (Acute) Back pain (Acute) Hypertension, benign (Acute) Vertigo (Acute) Thyroid nodule (Acute) Cellulitis (Acute 07/29/14) Internal derangement of right knee (Acute 01/29/17) Primary osteoarthritis of right knee (Acute 12/04/16) Left knee DJD (Acute) Medical History (Updated 11/03/24 @ 20:56 by Faizan Dyson MD) Fatty liver Multiple thyroid nodules Abnormal cardiovascular stress test Dysphagia Plantar fasciitis Prediabetes Abdominal pain, epigastric Palpitations Chest pain COVID-19 Obesity Hiatal hernia Hypertension GERD (gastroesophageal reflux disease) History of total knee arthroplasty Osteoarthritis Cervical lymphadenopathy Fibroid uterus Fatty liver disease, nonalcoholic Surgical History (Updated 05/06/24 @ 14:31 by Nannette Shipley) H/O bilateral cataract extraction History of lumpectomy of right breast H/O arthroscopy of left knee Ligation of fallopian tube Replacement of total knee joint Rt and Left Colonoscopy - MAC (~04/2024) 2014 Biopsy, Lymph Node (11/07/17) clinically suspicious lymphocytes Appendectomy Social History Smoking/Tobacco Use Status: Never Smoking risk assessment performed?: Yes Alcohol Intake: current Alcohol Intake frequency: a few times a week Drug use: Never Substance use type: does not use Housing: house What type of physical activity do you participate in: walking and swimming Duration: 45-60 minutes/day Frequency: 5-6 times per week Do you feel safe at home: Yes Do you feel safe in your relationship?: Yes Meds Allergies and Home Medications Allergies Allergy/AdvReac Type Severity Reaction Status Date / Time lisinopril Allergy Intermediate Wheezing Verified 11/03/24 19:41 Sulfa (Sulfonamide Allergy Intermediate Hives, rash Verified 11/03/24 19:41 Antibiotics) Home Medications ?Medication ?Instructions ?Recorded ?Confirmed ?Type amlodipine 5 mg tablet 2.5 mg PO DAILY 01/05/14 11/03/24 History metoprolol succinate 25 mg 25 mg PO DAILY #30 tab-caps 10/09/16 11/03/24 History tablet,extended release 24 hr aspirin 81 mg capsule 81 mg PO DAILY 08/11/22 11/03/24 History calcium 600 mg (as carbonate)-vit 1 tab PO DAILY 08/11/22 11/03/24 History D3 20 mcg (800 unit) chewable tablet (Caltrate plus D) simvastatin 20 mg tablet (Zocor) 20 mg PO DAILY 08/11/22 11/03/24 History triamcinolone acetonide 0.1 % 1 applic topical DAILY 08/11/22 11/03/24 History topical cream albuterol sulfate 90 mcg/actuation 2 inh inhalation Q4H PRN 02/16/23 11/03/24 History aerosol inhaler esomeprazole magnesium 40 mg 40 mg PO DAILY 02/16/23 11/03/24 History capsule,delayed release furosemide 20 mg tablet (Lasix) 20 mg PO DAILY 02/04/24 11/03/24 History metformin 500 mg tablet,extended 500 mg PO DAILY 02/04/24 11/03/24 History release 24 hr Results Labs 11/03/24 19:51 11/03/24 19:51 Labs: Laboratory Results - last 24 hr 11/03/24 11/03/24 19:51 20:59 WBC 11.15 H RBC 4.92 Hgb 13.6 Hct 43.4 MCV 88 MCH 27.6 MCHC 31.3 L RDW 13.8 Plt Count 335 MPV 9.3 Immature Gran % 0.4 Neutrophils % 73.6 Lymphocytes % 18.7 Monocytes % 6.6 Eosinophils % 0.3 Basophils % 0.4 Nucleated RBC % 0.0 Absolute Neutrophils 8.21 H Absolute Lymphocytes 2.09 Absolute Monocytes 0.74 Absolute Eosinophils 0.03 Absolute Basophils 0.04 Sodium 142 Potassium 4.2 Chloride 102 Carbon Dioxide 28.1 Anion Gap 11.9 H BUN 13 Creatinine 1.0 Est GFR (CKD-EPI 2020) 60.23 Glucose 118 H Calcium 9.0 Magnesium 1.8 Total Bilirubin 0.34 AST 25 ALT 26 Alkaline Phosphatase 95 Troponin I 1430 H* 2655 H* NT-Pro-B Natriuret Pep 604 H Total Protein 8.4 H Albumin 4.2 Lipase 8 Last Vital Signs Temp 98.0 F 11/03/24 19:35 Pulse 82 11/03/24 21:27 Resp 25 H 11/03/24 21:30 BP 131/92 H 11/03/24 21:27 Pulse Ox 89 L 11/03/24 21:30 PAWSS Have you Been Recently Intoxicated or Drunk Within the Last 30 days?: No Have you Ever Experienced Previous Episodes of Alcohol Withdrawal?: No Have you ever Experienced Withdrawal Seizures?: No Have you ever Experienced Delirium Tremens(DT)s?: No Have you ever undergone Alcohol Rehabilitation Treatment (i.e, inpt ot outpatient treatment programs)?: No Have you ever Experienced Blackouts?: No Have you ever Combined Alcohol with other Downers within the last 90 days?: No Have you ever Combined Alcohol with any other Substance of Abuse during the last 90 days?: No Result: 0
[2024-11-03 22:49] LABS: INR 1.1 (0.9-1.1); Prothrombin Time 11.1 sec (9.1-11.1)
[2024-11-03 22:55] LABS: Procalcitonin < 0.10 ng/mL
[2024-11-03 22:56] LABS: Troponin I 3564 ng/L (<or=51)
[2024-11-03 23:11] LABS: PTT Activated 108.7 sec (23.6-32.8)
== END 2024-11-03 23:14 | disposition short-term general hospital (02) ==
PROVIDERS: Emergency Provider Emergency Medicine; PCP Physician Assistant Medical
DX: I21.4 Non-ST elevation (NSTEMI) myocardial infarction (principal); I10 Essential (primary) hypertension; Z79.82 Long term (current) use of aspirin; Z79.84 Long term (current) use of oral hypoglycemic drugs
CPT/HCPCS: 36415; 76604; 80053; 83690; 84145; 87040; 93005; 93308; 96374; 99285; 71046; 83735; 83880; 84484; 85025; 85610; 85730; 93010; J1644; J1941

== ENCOUNTER 2024-11-13 09:12 | Outpatient (CLI) | payer OTHER, SELFPAY ==
[2024-11-13 09:35] LABS: BUN 14 mg/dL (7-18); Chloride 105 mmol/L (98-107); Estimated GFR 60.23 (mL/min/1.73m2); Glucose 95 mg/dL (74-106); Potassium 3.7 mmol/L (3.5-5.1); Sodium 144 mmol/L (136-145)
== END 2024-11-13 09:13 | disposition home or self-care (01) ==
LOC: LBO 09:15
PROVIDERS: PCP Physician Assistant Medical; Visit Provider Physician Assistant Medical
DX: I21.4 Non-ST elevation (NSTEMI) myocardial infarction (principal)
CPT/HCPCS: 36415; 80048

== ENCOUNTER 2025-06-17 17:53 | Outpatient (REF) | payer MEDICARE, SELFPAY ==
[2025-06-17 16:41] LABS: Anion Gap 5.9 mmol/L (3-11); BUN 18 mg/dL (7-18); CO2 30.1 mmol/L (21.0-32.0); Calcium 9.1 mg/dL (8.5-10.1); Chloride 104 mmol/L (98-107); Estimated GFR 78.72 (mL/min/1.73m2); Glucose 135 mg/dL (74-106); Magnesium 2.2 mg/dL (1.8-2.4); Potassium 5.0 mmol/L (3.5-5.1); Sodium 140 mmol/L (136-145)
== END 2025-06-17 17:54 | disposition home or self-care (01) ==
LOC: NCHCN 17:53
PROVIDERS: PCP Physician Assistant Medical; Visit Provider Physician Assistant Medical
DX: R42 Dizziness and giddiness (principal)
CPT/HCPCS: 80048; 83735

== ENCOUNTER 2025-06-23 03:12 | Outpatient (CLI) | payer MEDICARE, SELFPAY ==
--- NOTE | 2025-06-23 | DI.US_ITS ---
Exam(s) US CAROTID EXAM: US CAROTID CLINICAL HISTORY: DIZZINESS,R42. TECHNIQUE: Ultrasound carotids performed using grayscale, color-flow, and spectral Doppler imaging. COMPARISON: US POCUS EXAM from 11/03/2024 FINDINGS: CAROTID ARTERIES: The common carotid arteries appear unremarkable. There is some mild plaque evident at the level of the right carotid bulb without elevated velocities. There is no obvious significant plaque evident in the proximal right ICA. There are no significant elevated velocities on the right side. On the left side there is mild plaque evident in the proximal left internal carotid artery, not associated with elevated velocities at this level but with slight increase in end-diastolic velocity in the mid left ICA and upper normal systolic peak velocities in the mid and distal left ICA in the neck. VERTEBRAL ARTERIES: Antegrade flow was demonstrated in both vertebral arteries. Incidentally noted is a solid nodule of concern in the right thyroid lobe which measures 2.4 x 1.6 x 2.7 cm. Recommend thyroid ultrasound Measurements: R Bulb: 50.4cm/s PS / 18cm/s ED R CCA: 46.5cm/s PS / 15.4cm/s ED R ECA: 108.7cm/s PS / 17.2cm/s ED R ICA Prox: 66cm/s PS / 18.3cm/s ED R ICA Mid: 70.2cm/s PS / 21.7cm/s ED R ICA Distal: 110cm/s PS /36.5cm/s ED R Vert: 57.4cm/s PS / 14.6cm/s ED R SVR: 2.4 R DVR: 2.4 L Bulb: 60.5cm/s PS / 22.9cm/s ED L CCA: PS / 30.2cm/s ED L ECA: 97.6cm/s PS / 17.8cm/s ED L ICA Prox: 71cm/s PS / 25.4cm/s ED L ICA Mid: 117.8cm/s PS / 47cm/s ED L ICA Distal: 117.8cm/s PS / 41.5cm/s ED L Vert: 74.2cm/s PS / 23.4cm/s ED L SVR: 1.7 L DVR: 1.6 IMPRESSION: There is some mild plaque evident bilaterally in the carotids as described above. The amount of stenosis in both proximal internal carotid arteries is estimated at approximately 50-69 percent. Recommend CTA for further evaluation. Antegrade flow is demonstrated in both vertebral arteries. Incidentally noted is an abnormal solid nodule in the right thyroid lobe which measures approximately 2.4 x 1.6 x 2.7 and appears to be a TR 5 level nodule. Recommend dedicated thyroid ultrasound exam to determine if this requires biopsy. Criteria for Carotid Stenosis: Normal: ICA PSV <125 cm/s no plaque or intimal thickening is visible. <50% stenosis: ICA PSV <125 cm/s and plaque or intimal thickening is visible. 50-69% stenosis: ICA PSV is 125-250 cm/s and plaque is visible. >70% stenosis to near occlusion: ICA PSV >250 cm/s with visible plaque and luminal narrowing. DATA REPOSITORY:
== END 2025-06-23 03:32 ==
PROVIDERS: PCP Physician Assistant Medical; Visit Provider Physician Assistant Medical
DX: R42 Dizziness and giddiness (principal); N93.9 Abnormal uterine and vaginal bleeding, unspecified
CPT/HCPCS: 93880

== ENCOUNTER 2025-07-08 10:53 | Outpatient (CLI) | payer MEDICARE, SELFPAY ==
[2025-07-08] MEDS: Normal Saline - Diluent 50 ML VIAL IJ ×3 (13:45→13:48)
[2025-07-08] MEDS: Normal Saline Flush 10 ML SYR IVP (13:46)
[2025-07-08] MEDS: Omnipaque 350 MG/ML 100 ML BTL IJ ×3 (13:46→13:48)
--- NOTE | 2025-07-08 14:00 | DI.CT_ITS ---
Exam(s) CT CAROTID NECK CTA EXAM: CT CAROTID NECK CTA CLINICAL HISTORY: ABNL FINDINGS R93.89 FROM CAROTID US 06/23/25. TECHNIQUE: Imaging Protocol: Axial CT angiography was performed with multi- slice acquisition and multi-planar and/or 3D reconstructions. CONTRAST MATERIAL: Intravenous: Omnipaque 350 Contrast volume:210 ml, inadequate contrast bolus timing on the 1st scan. The patient was scanned a 2nd time with excellent contrast opacification. COMPARISON: CT CT HEAD WO from 07/03/2019 US US CAROTID from 06/23/2025 FINDINGS: Common Carotid: No visible plaque. Right: No dissection, occlusion or significant stenosis. Left: No dissection, occlusion or significant stenosis. External Carotid: No visible plaque. Right: No dissection, occlusion or significant stenosis. Left: No dissection, occlusion or significant stenosis. Internal Carotid: Both common carotid arteries approach the midline, anterior to the cervical spine at the C3 and C4 levels. No visible plaque. Right: No dissection, occlusion or significant stenosis. Left: No dissection, occlusion or significant stenosis. Vertebral Artery: No visible plaque. Right: No dissection, occlusion or significant stenosis. Left: No dissection, occlusion or significant stenosis. Basilar Artery and visualized intracranial vessels: No aneurysm, occlusion or significant stenosis. Lung Apices: Normal. Bones: Degenerative disc changes at C4-5 through C6-7. Soft Tissues: There is a thyroid nodule in the isthmus measuring 2.7 cm. IMPRESSION: No visible plaque in the common carotid, internal or external carotid arteries. No visible stenosis. No evidence of dissection. 2.7 centimeter thyroid nodule is again noted in the isthmus. FNA is recommended. RADIATION DOSE DELIVERED: Total DLP Total DLP DATA REPOSITORY: All CT scans at this facility are submitted to the National Radiology Data Registry (NRDR) Dose Index Registry (DIR) with the [employer] (A[employer]). RADIATION OPTIMIZATION: All CT scans at this facility use at least one of these dose optimization techniques: automated exposure control; mA and/or kV adjustment per patient size (includes targeted exams where dose is matched to clinical indication); or iterative reconstruction.
== END 2025-07-08 11:13 ==
LOC: DI 10:54
PROVIDERS: PCP Physician Assistant Medical; Visit Provider Physician Assistant Medical
DX: R93.89 Abnormal findings on diagnostic imaging of other specified body structures (principal)
CPT/HCPCS: 70498; J3490

== ENCOUNTER 2025-08-15 09:05 | Emergency (ER) | payer MEDICARE, SELFPAY ==
[2025-08-15 09:08] VITALS: PULSE 63; RESP 18; TEMP 36.6; O2SAT 100
--- NOTE | 2025-08-15 09:15 | DI.RAD_ITS ---
Exam(s) XR SHOULDER RT COMPLETE 2+V EXAM: XR SHOULDER RT COMPLETE 2+V CLINICAL HISTORY: Pain. TECHNIQUE: 2D digital imaging was performed of the right shoulder. Six images were obtained. AP, Grashey, Y-view and axillary views were obtained. COMPARISON: CR XR SHOULDER LT COMPLETE 2+V from 01/20/2021 FINDINGS: BONES: No acute fracture is present. No bony destructive lesion is seen. JOINTS: No dislocation present. There are mild degenerative changes seen at the acromioclavicular joint. The glenohumeral joint is well maintained. SOFT TISSUE: Normal. IMPRESSION: 1. There is no acute abnormality. 2. Mild degenerative changes seen at the AC joint. 3. The preliminary [facility] report was reviewed. DATA REPOSITORY: RADIATION DOSE DELIVERED:
--- NOTE | 2025-08-15 09:28 | ED.GENADUL_ITS ---
Discharge Plan Disposition Patient Disposition: Home Condition: Stable Discharge Details Clinical Impression: Degenerative joint disease of right shoulder Primary Care Provider: Natty Wilson ED Provider: Angie Mckinney Home Meds and New Rx's Prescriptions: New lidocaine 5 % adhesive patch,medicated 1 patch topical DAILY Qty: 15 0RF Rx Instructions: leave on most painful area for up to 24 hrs Leave off x 24 hours Continued Jardiance 10 mg tablet 10 mg PO QAM metoprolol succinate 25 MG tablet extended release 24 hr 25 mg PO DAILY Qty: 30 Caltrate 600 plus D 600 mg-20 mcg (800 unit) tablet,chewable 1 tab PO DAILY triamcinolone acetonide 0.1 % cream 1 applic topical DAILY simvastatin [Zocor] 20 mg tablet 20 mg PO DAILY esomeprazole magnesium 40 mg capsule,delayed release(DR/EC) 40 mg PO DAILY albuterol sulfate 90 mcg/actuation HFA aerosol inhaler 2 inh inhalation Q4H PRN Discharge Instructions Instructions: Osteoarthritis Additional Instructions: At this time the x-ray appears that you have some degenerative changes to your right shoulder. I will call you if there is any significant abnormality on the official read. A lidocaine patch prescription was sent to the pharmacy on file. Physical therapy referral was placed for you please call for an appointment when feeling better. Follow up with primary care provider in 3-5 days. Follow-up with orthopedics if you have continued significant pain. Return to ED sooner if any worsening or concerns. Please take Tylenol or Ibuprofen with food every 4-6 hours as needed for pain and swelling. You may alternate ice and heat. Stand Alone Forms: Physical Therapy Referral Referrals: Seth Morse MD [ [facility] STAFF PHYSICIAN, Orthopaedic Surgical] - 2 weeks Referral Note: ER follow up call for an appt Clinical Impression: Degenerative joint disease of right shoulder Natty Wilson PA [Primary Care Provider, Medicine] - 1 week Referral Note: Call for an appointment, ER follow-up Clinical Impression: Degenerative joint disease of right shoulder HPI General Mode of arrival: ambulatory . Date/Time Provider Initiated Documentation: 08/15/25 09:06 . Limitations to Documentation: no limitations . Information obtained by: patient, RN notes reviewed and old records reviewed . HPI Narrative: 69-year-old female presents to the ER with a chief complaint of right shoulder pain for approximately a week, reports that this was exacerbated from some deep cleaning that she was doing. She has increased pain and difficulty with shoulder abduction. She also has some pain with internal and external rotation. No obvious deformity distal CMS is intact. Denies any history of surgeries on the shoulder. Denies any known falls however she reports she does walk in her sleep so is unsure if she may have injured it. Denies any neck pain, chest pain shortness of breath numbness tingling or any other associated symptoms. She reports she did take some ibuprofen however this did upset her stomach and cause her to vomit. Past medical history includes fatty liver, thyroid nodules, NSTEMI, hiatal hernia GERD hypertension osteoarthritis. Surgical history includes lumpectomy right breast, arthroscopy left knee tubal ligation and appendectomy. Related Data Home Medications ?Medication ?Instructions ?Recorded ?Confirmed metoprolol succinate 25 mg 25 mg PO DAILY #30 tab-caps 10/09/16 08/15/25 tablet,extended release 24 hr calcium 600 mg (as carbonate)-vit 1 tab PO DAILY 08/1108/15/25 D3 20 mcg (800 unit) chewable tablet (Caltrate plus D) simvastatin 20 mg tablet (Zocor) 20 mg PO DAILY 08/15/25 triamcinolone acetonide 0.1 % 1 applic topical DAILY 0 08/11/22 08/15/25 topical cream albuterol sulfate 90 mcg/actuation 2 inh inhalation Q4 H PRN 02/16/23 08/15/25 aerosol inhaler esomeprazole magnesium 40 mg 40 mg PO DAILY 02/16/23 0 08/15/25 capsule,delayed release empagliflozin 10 mg tablet 10 mg PO QAM 08/03/2508/15 (Jardiance) lidocaine 5 % topical patch 1 patch topical DAILY DJD Right 08/15/25 Shoulder #15 ea Previous Rx's ?Medication ?Instructions ?Recorded lidocaine 5 % topical patch 1 patch topical DAILY DJD Right 08/15/25 Shoulder #15 ea Allergies Allergy/AdvReac Type Severity Reaction Status Date / Time lisinopril Allergy Intermediate Wheezing Verified 08/15/25 09:15 Sulfa (Sulfonamide Allergy Intermediate Hives, rash Verified 08/15/25 09:15 Antibiotics) General Stated Complaint: Orthopedic HARI: 3 Review of Systems All systems reviewed & are unremarkable except as noted in HPI and below ENT Ears, Nose, Mouth, and Throat: Denies neck pain Musculoskeletal Musculoskeletal: Reports as per HPI, Denies back pain, Reports arthralgias, Denies joint swelling, Reports limited range of motion, Denies neck pain, Denies numbness, Reports stiffness and Denies tingling Neurologic Neurologic: Denies numbness and Denies tingling Exam Narrative Exam Narrative: Constitutional: Alert and oriented x3. Appears stated age. Obese body habitus. Chest: RRR, Normal S1, S2, distal pulses intact. Resp: Lungs clear to auscultation bilaterally, no wheezes, rales, or rhonchi. Musculoskeletal: See below . Extrem General: normal to inspection Right upper extremity: shoulder/upper arm Details: normal to inspection and tenderness Location: of the A-C joint; no ecchymosis, no crepitus, no deformity and no unusual warmth Course Vital Signs Vital signs: Vital Signs Temperature 36.6 C 08/15/25 09:08 Pulse 63 08/15/25 09:08 Respiratory Rate 18 08/15/25 09:08 Pulse Oximetry 100 08/15/25 09:08 Temperature 36.6 C 08/15/25 09:08 Temperature Source Oral 08/15/25 09:08 Pulse 63 08/15/25 09:08 Respiratory Rate 18 08/15/25 09:08 Pulse Oximetry 100 08/15/25 09:08 Oxygen Delivery Method Room Air 08/15/25 09:08 Oxygen Flow Rate 0 08/15/25 09:08 Pain Level 9 08/15/25 09:12 Medical Decision Making 69-year-old female presents to the ER with a chief complaint of right shoulder pain for approximately a week, reports that this was exacerbated from some deep cleaning that she was doing. She has increased pain and difficulty with shoulder abduction. She also has some pain with internal and external rotation. No obvious deformity distal CMS is intact. Denies any history of surgeries on the shoulder. Denies any known falls however she reports she does walk in her sleep so is unsure if she may have injured it. Denies any neck pain, chest pain shortness of breath numbness tingling or any other associated symptoms. She reports she did take some ibuprofen however this did upset her stomach and cause her to vomit. Past medical history includes fatty liver, thyroid nodules, NSTEMI, hiatal hernia GERD hypertension osteoarthritis. Surgical history includes lumpectomy right breast, arthroscopy left knee tubal ligation and appendectomy. Three-view x-ray of shoulder ordered, Tylenol, Zofran 4 mg ODT, will consider lidocaine patch after x-ray imaging done. Discussed home care with patient will give a referral for physical therapy. At this time no obvious dislocation or fracture noted on the x-rays, there is some degenerative changes and bony osseous inflammation around the AC joint. Patient discharged hemodynamically stable discussed home care and follow-up care she verbalized understanding. This text was generated using [employer] system, please disregard any oddities of phrase or misspellings. Medical Records Medical records reviewed: Yes I reviewed the patient's medical records. PFSH All Active Problems (Updated 08/15/25 @ 10:15 by Angie Mckinney NP) Degenerative joint disease of right shoulder (Acute) Conductive hearing loss, external ear (Acute) Impacted cerumen, left ear (Acute) Benign paroxysmal positional vertigo of right ear (Acute) Shortness of breath (Acute) Premature atrial contractions (Acute) HLD (hyperlipidemia) (Acute) Right knee sprain (Acute) Chest wall pain (Acute) Back pain (Acute) Hypertension, benign (Acute) Vertigo (Acute) Thyroid nodule (Acute) Cellulitis (Acute 07/29/14) Internal derangement of right knee (Acute 01/29/17) Primary osteoarthritis of right knee (Acute 12/04/16) Left knee DJD (Acute) Medical History Fatty liver Multiple thyroid nodules Abnormal cardiovascular stress test Dysphagia Plantar fasciitis Prediabetes Abdominal pain, epigastric Palpitations Chest pain COVID-19 Obesity Hiatal hernia Hypertension GERD (gastroesophageal reflux disease) History of total knee arthroplasty Osteoarthritis Cervical lymphadenopathy Fibroid uterus Fatty liver disease, nonalcoholic Surgical History H/O bilateral cataract extraction History of lumpectomy of right breast H/O arthroscopy of left knee Ligation of fallopian tube Replacement of total knee joint Rt and Left Colonoscopy - MAC (~04/2024) 2014 Biopsy, Lymph Node (11/07/17) clinically suspicious lymphocytes Appendectomy Social History Smoking/Tobacco Use Status: Never Smoking risk assessment performed?: Yes Alcohol Intake: current Alcohol Intake frequency: a few times a week Drug use: Never Substance use type: does not use Housing: house What type of physical activity do you participate in: walking and swimming Duration: 45-60 minutes/day Frequency: 5-6 times per week Do you feel safe at home: Yes Do you feel safe in your relationship?: Yes
[2025-08-15] MEDS: Acetaminophen 500 MG TAB 1000 MG PO (09:30)
[2025-08-15] MEDS: Ondansetron O.D.T. 4 MG TABEF PO (09:30)
[2025-08-15] MEDS: Lidocaine 5% Patch 1 PATCH TP (09:55)
[2025-08-15 10:00] VITALS: BP 137/85; PULSE 77; RESP 16; O2SAT 97
[2025-08-15 10:26] VITALS: TEMP 36.5; O2SAT 97
--- NOTE | 2025-08-15 11:48 | DI.[facility]_ITS ---
PROCEDURE INFORMATION: Exam: XR Right Shoulder Exam date and time: 08/15/2025 9:42 AM Age: 69 years old Clinical indication: Pain; Shoulder; Right TECHNIQUE: Imaging protocol: Radiologic exam of the right shoulder. Views: 2 or more views. COMPARISON: No relevant prior studies available. FINDINGS: Bones/joints: Mild degenerative changes of the right acromioclavicular joint, with joint space narrowing and minimal osteophyte formation. No acute fracture or dislocation. Right glenohumeral joint maintained. Multilevel thoracic spine degenerative disc space narrowing and osteophyte formation. Soft tissues: Normal. IMPRESSION: No acute fracture or dislocation. Dictated and Authenticated by: Kvng Cornejo MD. Orderin Hank Adams MD
== END 2025-08-15 10:30 | disposition home or self-care (01) ==
PROVIDERS: Emergency Provider Registered Nurse Emergency; PCP Physician Assistant Medical
DX: M19.011 Primary osteoarthritis, right shoulder (principal)
CPT/HCPCS: 99283 ×2; 73030

== ENCOUNTER 2025-10-06 11:15 | Emergency (ER) | payer MEDICARE, SELFPAY ==
[2025-10-06] VITALS (15 sets, daily range): BP systolic 151–190; BP diastolic 82–102; PULSE 51–104; RESP 12–18; TEMP 36.2; O2SAT 94–100
--- NOTE | 2025-10-06 11:15 | DI.CT_ITS ---
Exam(s) CT BRAIN NECK CTA EXAM: CT BRAIN NECK CTA CLINICAL HISTORY: Right-sided numbness dizziness. TECHNIQUE: Imaging Protocol: Axial CT angiography was performed with multi- slice acquisition and multi-planar and/or 3D reconstructions. CONTRAST MATERIAL: Intravenous: Omnipaque 350 Contrast volume:70 mL COMPARISON: MR MR BRAIN WO from 06/05/[address] CAROTID NECK CTA from 07/08/2025 FINDINGS: CTA Neck W: Aortic arch anatomy: The aortic arch anatomy is bovine configuration. There is no significant stenosis at the origin of the great vessels off of the aortic arch. No intimal flap evident. Anterior circulation: Both common carotid arteries ascend with normal luminal diameters. At the level the carotid bulbs and proximal internal carotid arteries there is minimal plaque without hemodynamically significant stenosis evident. Above the level the bifurcations both internal carotid arteries are patent but are medially located/prevertebral. There is no significant stenosis in the internal carotid arteries in the upper neck nor within the skull base-carotid canals. Posterior circulation: Both vertebral arteries originate in conventional fashion off of the subclavian arteries and there is no obvious stenosis at the origin of the vertebral arteries. Both vertebral arteries exhibit normal luminal diameters within the foramen transversarium. Left vertebral artery is dominant. Both vertebral arteries contribute to the formation of the basilar artery at the skull base. CTA Brain W: Anterior circulation: Both internal carotid arteries are patent in the skull base-carotid canals as well as within the cavernous sinuses. The supraclinoid aspects of the ICAs are patent. Both A1 segments are patent as are the anterior cerebral arteries and there is no aneurysm at the level the anterior communicating artery nor elsewhere in the [id number]. Both middle cerebral arteries are patent with no evidence of significant stenosis nor intraluminal thrombus. There also no aneurysms of these vessels. Posterior circulation: The basilar artery ascends without significant stenosis. Distally gives off patent superior cerebellar arteries. Above this level the basilar artery terminates as patent bilateral posterior cerebral arteries. There is no evidence of aneurysm at the tip of the basilar artery nor elsewhere in the [id number]. CT BRAIN: There is no evidence of supratentorial intracranial hemorrhage, mass effect, or shift of midline structures. There are no extra-axial fluid collections. Ventricles are not enlarged or shifted. There are no ring enhancing lesions in the brain and no abnormal meningeal enhancement. However in the posterior fossa posterior aspect of the right cerebellar hemisphere there is a 3 x 2 millimeter hyperdensity which exhibits density measurements of approximately 75 HU. No surrounding edema. IMPRESSION: 1. Patent carotid arteries in the neck. No hemodynamically significant stenosis. No dissection 2. Patent vertebral arteries. No dissection 3. Patent intracranial arteries. 4. There are no ring enhancing lesions in the brain nor abnormal meningeal enhancement. However, there is a 3 x 2 millimeter hyperdensity in the posterior aspect of the right cerebellar hemisphere which exhibits density measurements of approximately 75 HU. Prior MRI of 06/05/2023 does not exhibit signal void at this level. Cannot exclude small focal hemorrhage, despite this being an unlikely location for small hemorrhage. Report called by myself to ER provider in 10/06/2025 at 12:25 p.m. RADIATION DOSE DELIVERED: 2,190.66mGy.cm Total DLP DATA REPOSITORY: All CT scans at this facility are submitted to the National Radiology Data Registry (NRDR) Dose Index Registry (DIR) with the [employer] ([employer]). RADIATION OPTIMIZATION: All CT scans at this facility use at least one of these dose optimization techniques: automated exposure control; mA and/or kV adjustment per patient size (includes targeted exams where dose is matched to clinical indication); or iterative reconstruction.
--- NOTE | 2025-10-06 11:15 | RT.EKG_ITS ---
APPROVED REPORT Exam: Resting ECG Reason for Exam: Right side numbness Patient Location: E HR:90 bpm ECG Measurements Heart Rate 90 AXIS DC 201 P 45 QRSd 72 QRS 4 QT 361 T 23 QTc 442 Conclusion Sinus rhythm...normal P axis, V-rate 60- 99 Supraventricular bigeminy...bigeminy string>4 w/ SV complexes Low voltage, precordial leads...precordial leads <1.0mV No Occlusion NC
--- NOTE | 2025-10-06 11:24 | W.ED.GENAD ---
Discharge Plan Disposition Patient Disposition: Home Discharge Details Clinical Impression: Right sided numbness Primary Care Provider: Natty Wilson ED Provider: Slick Recio Home Meds and New Rx's Prescriptions: New aspirin 81 mg capsule 162 mg PO DAILY 28 Days Qty: 56 0RF Continued Jardiance 10 mg tablet 10 mg PO QAM metoprolol succinate 25 MG tablet extended release 24 hr 25 mg PO DAILY Qty: 30 Caltrate 600 plus D 600 mg-20 mcg (800 unit) tablet,chewable 1 tab PO DAILY triamcinolone acetonide 0.1 % cream 1 applic topical DAILY simvastatin [Zocor] 20 mg tablet 20 mg PO DAILY esomeprazole magnesium 40 mg capsule,delayed release(DR/EC) 40 mg PO DAILY albuterol sulfate 90 mcg/actuation HFA aerosol inhaler 2 inh inhalation Q4H PRN lidocaine 5 % adhesive patch,medicated 1 patch topical DAILY Qty: 15 0RF Rx Instructions: leave on most painful area for up to 24 hrs Leave off x 24 hours Discharge Instructions Additional Instructions: You are seen in the emergency department for your right sided numbness. As we discussed your CAT scan and your MRI showed no sign of any strokes. There is no sign of any bleeding in your head either. Please follow-up with primary care provider concerning your elevated blood pressure. You are being sent home on a short course of aspirin which you should take as directed. There is concerns that you could have had a mini stroke also called a transient ischemic attack. You are being sent home on 162 mg of aspirin. Please touch base with your primary care provider concerning duration of therapy for aspirin. Stand Alone Forms: Portal Information HPI General Date/Time Provider Initiated Documentation: 10/06/25 11:24. HPI Narrative: MDM This is an overall well-appearing afebrile and not tachycardic 70-year-old female with resolved right sided numbness concerning for TIA for which patient will undergo emergent CT angiogram of her head and neck. No tonic-clonic activity to suggest seizure. Patient found altered to suggest encephalitis. No nuchal rigidity to suggest meningitis so no indication for LP. No tonic-clonic activity to suggest seizure so we will defer EEG. No rash to suggest zoster. No chest pain to suggest ACS however will obtain troponin testing. No chest pain to suggest aortic dissection. Soft nontender abdomen so not suspicious for any intra-abdominal infection. Will obtain ECG. I considered posterior circulation CVA however the patient had no nystagmus I did not apply hints exam. Patient has an ABCD2 score of 3 given her age, her elevated blood pressure, her duration of symptoms between 10 to 59 minutes and her lack of diabetes. If her CT angiogram shows no signs of LVO and no signs of hemorrhage we will proceed to MRI. 12:30 PM ECG showing sinus rhythm at a rate of 90 with first-degree AV block NH interval 201 ms. QTc within normal limits. Patient does have supraventricular bigeminy which is similar to her prior ECG from 2023. Patient metabolic panel no LISA. No acute electrolyte abnormalities. CBC lacks anemia thrombocytopenia and leukocytosis. 4:55 PM Late charting due to patient care. Patient had a very reassuring MRI. Her symptoms did not recur in the ED. Given her ABCD2 score less than 4 I elected to treat her with a short course of 162 mg aspirin. Advised PCP follow-up to discuss duration of time that she should be on aspirin. I advised her to return to the ED if she had any recurrent numbness or any weakness. I updated her with family members present. She understood her return indications and was discharged with an empiric trial of expectant outpatient management. HPI This is a patient with a history of hypertension, prediabetes, and high cholesterol presenting with numbness on the right side of her body. She is accompanied by her daughter. She reports experiencing numbness on the entire right side of her body, which began approximately an hour ago while she was at rest. She describes a sensation of tightness in her back, followed by numbness that radiated to her buttocks and hand. She also mentions a headache and mild nausea but does not report any chest pain. She has experienced similar episodes in the past, likening the sensation to that of receiving Novocain, with the numbness extending into her fingers. These previous episodes occurred during the summer and resolved spontaneously. She does not smoke. She reports no fevers, dysuria, or abdominal pain. She felt well upon waking this morning. Exam General: Well-appearing in no acute distress speaking in complete sentences. Head: Normocephalic, atraumatic. Eye:[Pupils equal, round reactive to light.] Extraocular eye movements intact. No conjunctival injection. No scleral icterus. Ear, nose, mouth, throat: Grossly normal inspection. Normal voice, handling secretions normally. Neck: Trachea midline. Cardiovascular: Well-perfused distal extremities. Regular rate and rhythm. Respiratory: Nonlabored respiration. Clear lungs bilaterally. Gastrointestinal: Nondistended abdomen. Musculoskeletal: No edema. Moving all 4 extremities spontaneously. 5 out of 5 bilateral upper and lower extremity strength. Skin: Normal for age and race, grossly normal temperature and turgor. No acute rash. Neurologic: Alert and appropriate, no apparent acute deficits. Cranial nerves II through XII intact grossly. No dysmetria. No dysdiadochokinesia. No pronator drift. Negative Romberg. GCS 15. Psychiatric: Mood and manner are appropriate. Grooming and personal hygiene are appropriate. Related Data Home Medications Medication Instructions Recorded Confirmed metoprolol succinate 25 mg 25 mg PO DAILY #30 tab-caps 10/09/16 10/06/25 tablet,extended release 24 hr calcium 600 mg (as carbonate)-vit 1 tab PO DAILY 08/11/22 10/06/25 D3 20 mcg (800 unit) chewable tablet (Caltrate plus D) simvastatin 20 mg tablet (Zocor) 20 mg PO DAILY 08/11/22 10/06/25 triamcinolone acetonide 0.1 % 1 applic topical DAILY 08/11/22 10/06/25 topical cream albuterol sulfate 90 mcg/actuation 2 inh inhalation Q4H PRN 02/16/23 10/06/25 aerosol inhaler esomeprazole magnesium 40 mg 40 mg PO DAILY 02/16/23 10/06/25 capsule,delayed release empagliflozin 10 mg tablet 10 mg PO QAM 08/03/25 10/06/25 (Jardiance) lidocaine 5 % topical patch 1 patch topical DAILY DJD Right 08/15/25 10/06/25 Shoulder #15 ea aspirin 81 mg capsule 162 mg (2 x 81 mg) PO DAILY 28 10/06/25 days #56 caps Previous Rx's Medication Instructions Recorded lidocaine 5 % topical patch 1 patch topical DAILY DJD Right 08/15/25 Shoulder #15 ea aspirin 81 mg capsule 162 mg (2 x 81 mg) PO DAILY 28 10/06/25 days #56 caps Allergies Allergy/AdvReac Type Severity Reaction Status Date / Time lisinopril Allergy Intermediate Wheezing Verified 10/06/25 11:21 Sulfa (Sulfonamide Allergy Intermediate Hives, rash Verified 10/06/25 11:21 Antibiotics) General Stated Complaint: CVA/TIA HARI: 3 Course Vital Signs Vital signs: Vital Signs Temperature 36.2 C L 10/06/25 11:17 Pulse 78 10/06/25 11:17 Respiratory Rate 18 10/06/25 11:17 Blood Pressure 151/82 H 10/06/25 11:17 Pulse Oximetry 94 10/06/25 11:17 Temperature 36.2 C L 10/06/25 11:17 Pulse 78 10/06/25 11:17 Respiratory Rate 18 10/06/25 11:17 Blood Pressure 151/82 H 10/06/25 11:17 Pulse Oximetry 94 10/06/25 11:17 Pain Level 0 10/06/25 11:17 PFSH All Active Problems (Updated 10/06/25 @ 14:16 by Slick Recio MD) Right sided numbness (Acute) Conductive hearing loss, external ear (Acute) Impacted cerumen, left ear (Acute) Benign paroxysmal positional vertigo of right ear (Acute) Shortness of breath (Acute) Premature atrial contractions (Acute) HLD (hyperlipidemia) (Acute) Right knee sprain (Acute) Chest wall pain (Acute) Back pain (Acute) Hypertension, benign (Acute) Vertigo (Acute) Thyroid nodule (Acute) Cellulitis (Acute 07/29/14) Internal derangement of right knee (Acute 01/29/17) Primary osteoarthritis of right knee (Acute 12/04/16) Left knee DJD (Acute) Medical History Fatty liver Multiple thyroid nodules Abnormal cardiovascular stress test Dysphagia Plantar fasciitis Prediabetes Abdominal pain, epigastric Palpitations Chest pain COVID-19 Obesity Hiatal hernia Hypertension GERD (gastroesophageal reflux disease) History of total knee arthroplasty Osteoarthritis Cervical lymphadenopathy Fibroid uterus Fatty liver disease, nonalcoholic Surgical History H/O bilateral cataract extraction History of lumpectomy of right breast H/O arthroscopy of left knee Ligation of fallopian tube Replacement of total knee joint Rt and Left Colonoscopy - [facility] (~04/2024) 2014 Biopsy, Lymph Node (11/07/17) clinically suspicious lymphocytes Appendectomy Social History Smoking/Tobacco Use Status: Never Smoking risk assessment performed?: Yes Alcohol Intake: current Alcohol Intake frequency: a few times a week Drug use: Never Substance use type: does not use Housing: house What type of physical activity do you participate in: walking and swimming Duration: 45-60 minutes/day Frequency: 5-6 times per week Do you feel safe at home: Yes Do you feel safe in your relationship?: Yes
[2025-10-06 12:02] LABS: Abs Immature Grans 0.02 10^3/uL (0.0-0.06); HCT 43.3 % (36.0-46.0); HGB 13.5 g/dL (11.2-15.7); Immature Grans % 0.3 %; MCH 26.0 pg (27.0-33.0); MCHC 31.2 % (32.0-36.0); MCV 83 fL (80-95); MPV 9.4 fL (8.0-11.0); Platelet Count 306 10^3/uL (130-400); RBC 5.19 10^6/uL (3.93-5.22); RDW 15.7 % (11.7-14.6); RDW-SD 47.7 fL; WBC 7.37 10^3/uL (4.4-10.8)
[2025-10-06] MEDS: Omnipaque 350 MG/ML 100 ML BTL IJ (12:02)
[2025-10-06] MEDS: Normal Saline - Diluent 50 ML VIAL IJ (12:02)
--- NOTE | 2025-10-06 12:15 | DI.MRI_ITS ---
Exam(s) MR BRAIN WO EXAM: MR BRAIN WO CLINICAL HISTORY: Resolved right-sided numbness TECHNIQUE: Multiplanar multisequence MRI of the brain was performed. COMPARISON: MR MR BRAIN WO from 06/05/[address] BRAIN NECK CTA from 10/06/2025 FINDINGS: CEREBRAL PARENCHYMA: There is no evidence of intracranial hemorrhage, mass effect, or shift of midline structures. There are no extra-axial fluid collections. Ventricles are not enlarged or shifted. No evidence of cerebellar tonsillar ectopia. There is no significant focal signal abnormality in the cerebellar hemispheres nor within the rudy, midbrain, and thalami. There are multiple foci of FLAIR bright signal abnormality in the Danay ventricular white matter bilaterally. These are not associated with hemorrhage, surrounding edema, nor restricted diffusion. There is no significant focal signal abnormality evident on diffusion imaging to suggest acute ischemic event. PITUITARY GLAND: No mass nor parasellar abnormality. No obvious abnormality in the cavernous sinuses. FLOW VOIDS: The expected flow void are noted. No evidence of obvious aneurysm nor obvious vascular malformation. PARANASAL SINUSES: The visualized paranasal sinuses appear unremarkable. No obvious finding ORBITS: Prior bilateral cataract surgery. IMPRESSION: No acute intracranial findings. There are multiple foci of white matter signal abnormality which are not associated with hemorrhage, surrounding edema, nor restricted diffusion and are therefore most likely related to chronic small- vessel white matter ischemic disease. Report called by myself to ER physician 10/06/2025 at 2:07 p.m. DATA REPOSITORY:
[2025-10-06 12:17] LABS: Anion Gap 7.4 mmol/L (3-11); BUN 16 mg/dL (7-18); CO2 30.6 mmol/L (21.0-32.0); Calcium 8.9 mg/dL (8.5-10.1); Chloride 102 mmol/L (98-107); Glucose 87 mg/dL (74-106); Potassium 4.4 mmol/L (3.5-5.1); Sodium 140 mmol/L (136-145); Troponin I 5 ng/L (<or=51)
[2025-10-06 14:22] LABS: Troponin I 10 ng/L (<or=51)
== END 2025-10-06 14:39 | disposition home or self-care (01) ==
PROVIDERS: Emergency Provider Emergency Medicine; PCP Physician Assistant Medical
DX: R20.0 Anesthesia of skin (principal); I10 Essential (primary) hypertension
CPT/HCPCS: 99284; 99285; 36415; 70496; 70498; 80048; 93005; 70551; 84484; 85025; 93010; J3490

== ENCOUNTER 2025-10-08 11:37 | Emergency (ER) | payer MEDICARE, SELFPAY ==
[2025-10-08] VITALS (38 sets, daily range): BP systolic 96–170; BP diastolic 52–107; PULSE 48–100; RESP 14–33; TEMP 37.2; O2SAT 94–99
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
--- NOTE | 2025-10-08 11:45 | DI.RAD_ITS ---
Exam(s) XR CHEST 2V PA LATERAL EXAM: XR CHEST 2V PA LATERAL CLINICAL HISTORY: Numbness. TECHNIQUE: 2D digital imaging was performed. COMPARISON: CR,XR XR CHEST 2V PA LATERAL from 11/03/2024 FINDINGS: 2 views: Large retrocardiac hiatal hernia again noted. Heart size is normal. The mediastinum is not widened. Right lung is clear. There is slightly increased markings in left lower lobe which may be related to the wall of the hiatal hernia versus is adjacent atelectasis or infiltrate. There are no pleural effusions. No pulmonary edema. IMPRESSION: Prominent hiatal hernia with adjacent left lower lobe findingswhich are probably atelectatic but cannot exclude mild infiltrate at this level. DATA REPOSITORY: RADIATION DOSE DELIVERED:
[2025-10-08 12:03] LABS: BE (Venous) 3 mmol/L (-2-3); HCO3 (Venous) 29 mmol/L (23-28); O2 Sat (Venous) 58 %; TCO2 (Venous) 26 mmol/L (24-29); pCO2 (Venous) 50 mmHg (41-51); pO2 (Venous) 33 mmHg
[2025-10-08 12:06] LABS: Abs Immature Grans 0.02 10^3/uL (0.0-0.06); HCT 44.6 % (36.0-46.0); HGB 14.0 g/dL (11.2-15.7); Immature Grans % 0.2 %; MCH 26.6 pg (27.0-33.0); MCHC 31.4 % (32.0-36.0); MCV 85 fL (80-95); MPV 9.4 fL (8.0-11.0); Platelet Count 329 10^3/uL (130-400); RBC 5.27 10^6/uL (3.93-5.22); RDW 15.8 % (11.7-14.6); RDW-SD 48.8 fL; WBC 8.69 10^3/uL (4.4-10.8)
[2025-10-08 12:23] LABS: Magnesium 2.0 mg/dL (1.6-2.6)
[2025-10-08 12:29] LABS: Troponin I < 3 ng/L (<35)
[2025-10-08 12:51] LABS: Glucose 500 mg/dL (Negative)
[2025-10-08] MEDS: Droperidol 5 MG/2 ML VIAL 1.25 MG IVP (12:58)
[2025-10-08 13:03] LABS: C & S Indicated? No; RBC 0-2 HPF (0-2)
--- NOTE | 2025-10-08 14:00 | DI.MRI_ITS ---
Exam(s) MR ANGIO BRAIN WO CLINICAL HISTORY: Concern for CVT. TECHNIQUE: 2D [id number] study was performed without contrast. COMPARISON: MRI brain 06 October 2025 FINDINGS: The superior sagittal sinus, transverse and sigmoid sinuses as well as straight sinus and major branch vessels appear patent. IMPRESSION: No evidence of central venous thrombosis. DATA REPOSITORY:
[2025-10-08 14:10] LABS: Troponin I < 3 ng/L (<35)
--- NOTE | 2025-10-08 15:22 | W.ED.GENAD ---
Discharge Plan Disposition Patient Disposition: Home Discharge Details Clinical Impression: Numbness Primary Care Provider: Natty Wilson ED Provider: Jose Bahena Home Meds and New Rx's Prescriptions: New levetiracetam [Keppra] 500 mg tablet 500 mg PO BID Qty: 90 0RF No Action metoprolol succinate 25 MG tablet extended release 24 hr 25 mg PO DAILY Qty: 30 Caltrate 600 plus D 600 mg-20 mcg (800 unit) tablet,chewable 1 tab PO DAILY triamcinolone acetonide 0.1 % cream 1 applic topical DAILY simvastatin [Zocor] 20 mg tablet 20 mg PO DAILY esomeprazole magnesium 40 mg capsule,delayed release(DR/EC) 40 mg PO DAILY albuterol sulfate 90 mcg/actuation HFA aerosol inhaler 2 inh inhalation Q4H PRN aspirin 81 mg capsule 162 mg PO DAILY 28 Days Qty: 56 0RF lidocaine 5 % adhesive patch,medicated 1 patch topical DAILY Qty: 15 0RF Rx Instructions: leave on most painful area for up to 24 hrs Leave off x 24 hours Jardiance 25 mg tablet 25 mg PO DAILY Patient Comments: TAKE ONE TABLET BY MOUTH EVERY DAY Discharge Instructions Instructions: Seizures Additional Instructions: As discussed, there is still continued concern for possible focal seizure as such she were treated with a drug called Keppra today which is an antiseizure drug. You will also be prescribed this drug to take twice a day until further evaluation by neurology team. You have been referred to the [facility] neurology team, if you have any difficulty following up with them, or your symptoms are persistent or worsening please come seek evaluation in the emergency department for further management. Stand Alone Forms: Portal Information HPI General Date/Time Provider Initiated Documentation: 10/08/25 11:45. HPI Narrative: MDM/Narrative: 70-year-old female with persistent right-sided heminumbness. Differential Diagnosis: -Complex migraine: Will treat patient's current headache to determine if symptoms recur following treatment. - Cerebral venous thrombosis: Obtain MRV or CTV > anticoagulate if indicated on imaging. - Focal seizure: Consider if MRI/CTV normal. Keppra loading. Follow up with neurology. ED Course: - Discussed case with teleneurology. - Evaluated by teleneurologist Dr. Mesa. - Recommendation for MRV or CTV. Clinical Impression: - Persistent right-sided heminumbness Follow-Up: Follow up with neurology as outpatient. This document was created with assistance from [employer]. The patient consented to its use. HPI: The patient is a 70-year-old female with a medical history of hyperlipidemia, hypertension, and prediabetes, presenting for evaluation of right-sided numbness. She was evaluated two days ago in the emergency department for similar symptoms. A computed tomography angiography (CTA) of the head and neck, as well as a brain magnetic resonance imaging (MRI), revealed no acute findings. She was initiated on full-dose aspirin and advised to follow up with her primary care provider and return to the emergency department if her symptoms worsened. Since discharge, she has experienced persistent episodes of right-sided body numbness lasting approximately 20 minutes, without accompanying motor symptoms. These episodes are associated with a headache, which she rates as 2/10 in severity. ROS: Negative besides as mentioned above Exam: Vital signs: Reviewed. General Appearance: Alert and oriented. No acute distress. HEENT: NCAT, EOMI, not icteric. External ears normal. No rhinorrhea. Moist mucous membranes. Neck: Supple, full range of motion, no observable masses, No meningeal sign. Respiratory: No Respiratory distress. No tachypnea. Cardiovascular: RRR, no edema. Gastrointestinal: Soft, nondistended, No rebound tenderness. Back: No midline tenderness to palpation or palpable step-offs of the C/T/L spine. Skin: Warm and dry, no rash. Neurological: No focal deficits. Psychiatric: Appropriate for situation. Radiology: Exam(s) XR CHEST 2V PA LATERAL EXAM: XR CHEST 2V PA LATERAL CLINICAL HISTORY: Numbness. TECHNIQUE: 2D digital imaging was performed. COMPARISON: CR,XR XR CHEST 2V PA LATERAL from 11/03/2024 FINDINGS: 2 views: Large retrocardiac hiatal hernia again noted. Heart size is normal. The mediastinum is not widened. Right lung is clear. There is slightly increased markings in left lower lobe which may be related to the wall of the hiatal hernia versus is adjacent atelectasis or infiltrate. There are no pleural effusions. No pulmonary edema. IMPRESSION: Prominent hiatal hernia with adjacent left lower lobe findingswhich are probably atelectatic but cannot exclude mild infiltrate at this level. Exam(s) MR ANGIO BRAIN WO CLINICAL HISTORY: Concern for CVT. TECHNIQUE: 2D [id number] study was performed without contrast. COMPARISON: MRI brain 06 October 2025 FINDINGS: The superior sagittal sinus, transverse and sigmoid sinuses as well as straight sinus and major branch vessels appear patent. IMPRESSION: No evidence of central venous thrombosis. Related Data Home Medications Medication Instructions Recorded Confirmed metoprolol succinate 25 mg 25 mg PO DAILY #30 tab-caps 10/09/16 10/08/25 tablet,extended release 24 hr calcium 600 mg (as carbonate)-vit 1 tab PO DAILY 08/11/22 10/08/25 D3 20 mcg (800 unit) chewable tablet (Caltrate plus D) simvastatin 20 mg tablet (Zocor) 20 mg PO DAILY 08/11/22 10/08/25 triamcinolone acetonide 0.1 % 1 applic topical DAILY 08/11/22 10/08/25 topical cream albuterol sulfate 90 mcg/actuation 2 inh inhalation Q4H PRN 02/16/23 10/08/25 aerosol inhaler esomeprazole magnesium 40 mg 40 mg PO DAILY 02/16/23 10/08/25 capsule,delayed release lidocaine 5 % topical patch 1 patch topical DAILY DJD Right 08/15/25 10/08/25 Shoulder #15 ea aspirin 81 mg capsule 162 mg (2 x 81 mg) PO DAILY 28 10/06/25 10/08/25 days #56 caps empagliflozin 25 mg tablet 25 mg PO DAILY 10/08/25 10/08/25 (Jardiance) levetiracetam 500 mg tablet 500 mg PO BID #90 tabs 10/08/25 (Keppra) Previous Rx's Medication Instructions Recorded lidocaine 5 % topical patch 1 patch topical DAILY DJD Right 08/15/25 Shoulder #15 ea aspirin 81 mg capsule 162 mg (2 x 81 mg) PO DAILY 28 10/06/25 days #56 caps levetiracetam 500 mg tablet 500 mg PO BID #90 tabs 10/08/25 (Keppra) Allergies Allergy/AdvReac Type Severity Reaction Status Date / Time lisinopril Allergy Intermediate Wheezing Verified 10/08/25 11:47 Sulfa (Sulfonamide Allergy Intermediate Hives, rash Verified 10/08/25 11:47 Antibiotics) General Stated Complaint: CVA/TIA HARI: 3 Course Vital Signs Vital signs: Vital Signs Temperature 37.2 C 10/08/25 11:42 Pulse 84 10/08/25 11:42 Respiratory Rate 18 10/08/25 11:42 Blood Pressure 170/59 H 10/08/25 11:42 Pulse Oximetry 97 10/08/25 11:42 Temperature 37.2 C 10/08/25 11:42 Pulse 95 H 10/08/25 13:31 Respiratory Rate 20 10/08/25 13:31 Respiratory Effort Normal 10/08/25 13:31 Respiratory Depth Normal 10/08/25 13:31 Respiratory Pattern Normal 10/08/25 13:31 Blood Pressure 102/68 10/08/25 13:31 Pulse Oximetry 98 10/08/25 13:31 Oxygen Delivery Method Room Air 10/08/25 13:31 Oxygen Flow Rate 0 10/08/25 13:31 Lab/Test Results Lab/Test Results: Laboratory Tests Range/Units 10/08/25 10/08/25 10/08/25 11:58 12:45 12:58 WBC (4.4-10.8) 10^3/uL 8.69 RBC (3.93-5.22) 10^6/uL 5.27 H Hgb (11.2-15.7) g/dL 14.0 Hct (36.0-46.0) % 44.6 MCV (80-95) fL 85 MCH (27.0-33.0) pg 26.6 L MCHC (32.0-36.0) % 31.4 L RDW (11.7-14.6) % 15.8 H Plt Count (130-400) 10^3/uL 329 MPV (8.0-11.0) fL 9.4 Immature Gran % % 0.2 Neutrophils % % 64.5 Lymphocytes % % 26.1 Monocytes % % 8.2 Eosinophils % % 0.8 Basophils % % 0.2 Nucleated RBC % (0.0-0.3) % 0.0 Absolute Neutrophils (1.2-6.7) 10^3/uL 5.60 Absolute Lymphocytes (1.2-3.4) 10^3/uL 2.27 Absolute Monocytes (0.1-0.8) 10^3/uL 0.71 Absolute Eosinophils (0.0-0.7) 10^3/uL 0.07 Absolute Basophils (0.0-0.2) 10^3/uL 0.02 VBG pH (7.31-7.41) 7.37 VBG pCO2 (41-51) mmHg 50 VBG pO2 mmHg 33 VBG HCO3 (23-28) mmol/L 29 H VBG Total CO2 (24-29) mmol/L 26 VBG O2 Saturation % 58 VBG Base Excess (-2-3) mmol/L 3 Magnesium (1.6-2.6) mg/dL 2.0 Troponin I (<35) ng/L < 3 < 3 Urine Color (Yellow) Yellow Urine Clarity (Clear) Clear Urine pH (5-8) 6.0 Ur Specific [place] (1.005-1.025) <= 1.005 Urine Protein (Neg-Trace) mg/dL Negative Urine Ketones (Negative) mg/dL Negative Urine Blood (Negative) Trace-lysed H Urine Nitrite (Negative) Negative Urine Bilirubin (Negative) Negative Urine Urobilinogen (Up to 0.2) mg/dL 0.2 Ur Leukocyte Esterase (Negative) Small H Urine RBC (0-2) HPF 0-2 Urine WBC (0-5) HPF 3-5 Ur Epithelial Cells (Negative) HPF Few Urine Crystals (Negative) HPF Negative Urine Bacteria (Negative) HPF Rare Urine Casts (Negative) LPF Negative Urine Mucus (Negative) Negative Ur Culture Indicated? No Urine Glucose (Negative) mg/dL 500 H PFSH All Active Problems (Updated 10/08/25 @ 15:24 by Jose Bahena MD) Numbness (Acute) Right sided numbness (Acute) Conductive hearing loss, external ear (Acute) Impacted cerumen, left ear (Acute) Benign paroxysmal positional vertigo of right ear (Acute) Shortness of breath (Acute) Premature atrial contractions (Acute) HLD (hyperlipidemia) (Acute) Right knee sprain (Acute) Chest wall pain (Acute) Back pain (Acute) Hypertension, benign (Acute) Vertigo (Acute) Thyroid nodule (Acute) Cellulitis (Acute 07/29/14) Internal derangement of right knee (Acute 01/29/17) Primary osteoarthritis of right knee (Acute 12/04/16) Left knee DJD (Acute) Medical History Fatty liver Multiple thyroid nodules Abnormal cardiovascular stress test Dysphagia Plantar fasciitis Prediabetes Abdominal pain, epigastric Palpitations Chest pain COVID-19 Obesity Hiatal hernia Hypertension GERD (gastroesophageal reflux disease) History of total knee arthroplasty Osteoarthritis Cervical lymphadenopathy Fibroid uterus Fatty liver disease, nonalcoholic Surgical History H/O bilateral cataract extraction History of lumpectomy of right breast H/O arthroscopy of left knee Ligation of fallopian tube Replacement of total knee joint Rt and Left Colonoscopy - MAC (~04/2024) 2013 Biopsy, Lymph Node (11/07/17) clinically suspicious lymphocytes Appendectomy Social History Smoking/Tobacco Use Status: Never Smoking risk assessment performed?: Yes Alcohol Intake: current Alcohol Intake frequency: a few times a week Drug use: Never Substance use type: does not use Housing: house What type of physical activity do you participate in: walking and swimming Duration: 45-60 minutes/day Frequency: 5-6 times per week Do you feel safe at home: Yes Do you feel safe in your relationship?: Yes
[2025-10-08] MEDS: levETIRAcetam 1,000 MG in Normal Saline 100 ML 400 MG IVPB (15:52)
[2025-10-09 10:37] LABS: Lyme Ab w Rflx to Lyme Confirm Negative (Negative)
[2025-10-10 21:30] LABS: B. miyamotoi PCR Negative (Negative); Babesia divergens/MO-1 Negative (Negative); Ehrlichia muris eauclairensis Negative (Negative)
== END 2025-10-08 16:43 | disposition home or self-care (01) ==
PROVIDERS: Emergency Provider General Practice; PCP Physician Assistant Medical
DX: R20.0 Anesthesia of skin (principal)
CPT/HCPCS: 99284; 99285; 96375; 70544; 82805; 87798; 93005; 96365; 71046; 81003; 81015; 83735; 84484; 85025; 86618; 93010; J1790; J1953